=== PATIENT | female | born 1960 | race Caucasian/White ===

== ENCOUNTER 2017-04-30 17:04 | Inpatient (IN) | payer OTHER ==
[~2017-04-30] VITALS: Ht 154.9 cm; Wt 93.5 kg
[~2017-04-30 17:04] MED LIST: ASPI-1152 PO; BLOO-129 IN; CYCL10TA9 PO; DICL75TA5 PO; FLUO20TA28 PO; FURO40TA5 PO; HYDR-548 PO; LEVO750T21 PO; LISI-607 PO; LORA1TAB PO; METF10002 PO; METR500T PO; MONT10TA22 PO; NITR0.4T SL; POTA8TAB3 PO; RANO500T3 PO; TRAM50TA2 PO; TRAZ-147 PO
--- NOTE | 2017-04-30 17:08 | NUR ---
PT BB LIFE CONSULTANT WITH C/O ON/OFF CHEST PAIN X 2 WKS, WORSE TODAY. PT DENIES N/V/ DIAPHORESIS. PT TOOK 3 NITRO PICC NURSE W/O RELIEF. PT STATES CP 8/10, NONE RADIATING. RESP 26PM. PT PLACED ON NC 2L/M PER MD. PT IS AAOX4. RESP EVEN AND MILDLY LABORED. MILD S/S OF DISTRESS NOTED. PT GOWNED AND PLACED ON METAL SASH SETTER AND POX. PT COMFORT AND SAFETY MEASURES IN PLACE. MD BEDSIDE FOR EVAL.
--- NOTE | 2017-04-30 17:18 | NUR ---
CALLED [employer] SALES ENGAGEMENT EXECUTIVE FOR A TELE BED.
--- NOTE | 2017-04-30 17:18 | NUR ---
PHLEBOTOMY BEDSIDE FOR BLOOD SPECIMEN COLLECTION
--- NOTE | 2017-04-30 17:25 | NUR ---
CIRCUIT RIDER BEDSIDE FOR EKG
[2017-04-30 17:27] LABS: BASOPHILS # (AUTO) 0.1 /CMM (0.0-0.2); BASOPHILS % (AUTO) 0.5 % (0.0-2.0); EOSINOPHILS # (AUTO) 0.1 /CMM (0.0-0.7); EOSINOPHILS % (AUTO) 0.7 % (0.0-6.0); HEMATOCRIT 45 % (33-45); HEMOGLOBIN 15.4 g/dL (11.5-14.8); LYMPHOCYTES # (AUTO) 2.6 /CMM (0.8-4.8); LYMPHOCYTES % (AUTO) 24.7 % (20.0-44.0); MEAN CORPUSCULAR HEMOGLOBIN 30 PG (26.0-33.0); MEAN CORPUSCULAR HGB CONC 34 g/dl (31.0-36.0); MEAN CORPUSCULAR VOLUME 86 fL (82-100); MONOCYTES # (AUTO) 0.4 /CMM (0.1-1.30); NEUTROPHILS # (AUTO) 7.5 /CMM (1.8-8.9); NEUTROPHILS % (AUTO) 70.1 % (43.0-81.0); PLATELET COUNT (AUTO) 324 /CMM (150-450); RDW COEFFICIENT OF VARIATION 13.6 (11.5-15.0); RED BLOOD CELL COUNT(AUTO) 5.23 MIL/uL (4.0-5.2); WHITE BLOOD COUNT (AUTO) 10.7 K/uL (4.3-11.0)
[2017-04-30] MEDS ORDERED: MORPHINE SULFATE INJ 4 MG/ML DISP.SYRIN ONE (17:27)
[2017-04-30] MEDS ORDERED: ASPIRIN 325 MG TABLET ONE (17:27)
[2017-04-30] MEDS ORDERED: NITROGLYCERIN PACKET 1 GM PACKET TD ONE (17:30)
[2017-04-30] MEDS ORDERED: ASPIRIN 325 MG TABLET PO ONE (17:30)
[2017-04-30] MEDS ORDERED: MORPHINE SULFATE INJ 2 MG/ML DISP.SYRIN IV ONE (17:30)
[2017-04-30] MEDS ORDERED: NITROGLYCERIN PACKET 1 GM PACKET ONE (17:40)
[2017-04-30 17:41] LABS: INR 0.94 (0.85-1.15)
[2017-04-30] MEDS ORDERED: GABA600T2 PO (17:45)
[2017-04-30] MEDS ORDERED: AMLO5TAB2 PO (17:45)
[2017-04-30] MEDS ORDERED: HYDR-548 PO (17:45)
[2017-04-30] MEDS ORDERED: ATOR40TA PO (17:45)
[2017-04-30] MEDS ORDERED: ALPR0.5T8 PO (17:45)
[2017-04-30] MEDS ORDERED: INSU100V7 SQ (17:45)
[2017-04-30 17:48] LABS: TROPONIN I < 0.017 ng/mL (0.00-0.056)
[2017-04-30] MEDS ORDERED: INSU100V27 SQ (17:48)
[2017-04-30 17:55] LABS: B-TYPE NATRIURETIC PEPTIDE 53 PG/ML (0-125); CALCIUM, SERUM 9.2 mg/dL (8.5-10.1); CARBON DIOXIDE 22 mmol/L (21-32); CHLORIDE 99 mmol/L (98-107); CREATININE 0.8 mg/dL (0.6-1.3); POTASSIUM 4.2 mmol/L (3.5-5.1); SODIUM SERUM 132 mmol/L (136-145); UREA NITROGEN, BLOOD 12 mg/dL (7-18)
[2017-04-30 17:56] LABS: GLUCOSE 480 mg/dL (74-106)
--- NOTE | 2017-04-30 18:04 | NUR ---
TELE ROOM 323-2
[2017-04-30] MEDS ORDERED: LORAZEPAM INJ 2 MG/ML VIAL IV ONE (18:30)
[2017-04-30] MEDS ORDERED: INSULIN REGULAR, HUMAN 100 UNIT/ML 10 ML VIAL SQ ONE (18:30)
[2017-04-30] MEDS ORDERED: IV NS 0.9% 500 ML IV ONE (18:30)
[2017-04-30] MEDS ORDERED: INSULIN REGULAR, HUMAN 100 UNIT/ML 10 ML VIAL ONE (18:41)
[2017-04-30] MEDS ORDERED: LORAZEPAM INJ 2 MG/ML VIAL ONE (18:43)
--- NOTE | 2017-04-30 19:12 | NUR ---
Patient is resting comfortably in bed with eyes closed. Easily aroused. VSS
--- NOTE | 2017-04-30 19:28 | NUR ---
PAGED EPIC FOR PANEL
--- NOTE | 2017-04-30 19:37 | NUR ---
GAVE REPORT TO EYEGLASS FRAME TRUERABDULLAHI CRUZ FOR FRITZ.
[2017-04-30 20:00] VITALS: BP 134/82
--- NOTE | 2017-04-30 20:00 | NUR ---
RN OPEN NOTES RECEIVED PATIENT FROM ER VIA SUKHJINDER.A/OX4. NO SIGNS OF DISTRESS OR DISCOMFORT. BREATHING EVEN AND UNLABORED. ON 2LPM O2 VIA NC. IV ACCESS IN L WRIST, PATENT AND INTACT, NO SIGNS OF REDNESS OR INFILTRATION. ORIENTED PATIENT TO UNIT AND ROOM. BED IN LOW LOCKED POSITION WITH SIDE RAILS X2. WILL CONTINUE TO MONITOR.
[2017-04-30] MEDS ORDERED: Z GUARD REMEDY 2 OZ OINT TP PRN (20:30)
[2017-04-30] MEDS ORDERED: MAGNESIUM HYDROXIDE 30 ML UDC PO PRN (20:30)
[2017-04-30] MEDS ORDERED: ACETAMINOPHEN 325 MG TABLET PO PRN (20:30)
[2017-04-30] MEDS ORDERED: ONDANSETRON HCL/PF 4 MG/2 ML VIAL IVP PRN (20:30)
[2017-04-30] MEDS ORDERED: DEXTROSE 50%-WATER 50 ML DISP.SYRIN IV PRN (20:30)
[2017-04-30] MEDS ORDERED: MAG HYDROX/AL HYDROX/SIMETH 30 ML UDC PO PRN (20:30)
[2017-04-30] MEDS: GABAPENTIN 300 MG CAPSULE PO SCH (21:36)
[2017-04-30] MEDS: ATORVASTATIN 40 MG TABLET PO SCH (21:37)
[2017-04-30] MEDS: BLOOD SUGAR DIAGNOSTIC 1 EACH STRIP VI SCH (21:37)
[2017-04-30] MEDS: INSULIN GLARGINE, 100 UNIT/ML CARTRIDGE SQ SCH (21:38)
[2017-04-30] MEDS: *INSULIN REGULAR(HUMULIN R)HUM 100 UNIT/ML VIAL SQ PRN (21:39)
[2017-04-30] MEDS: ENOXAPARIN SODIUM 40 MG/0.4 ML DISP.SYRIN SQ SCH (21:41)
[2017-04-30] MEDS: ZOLPIDEM TARTRATE 5 MG TABLET PO PRN (22:53)
[2017-04-30] MEDS: MORPHINE SULFATE INJ 4 MG/ML DISP.SYRIN IV PRN (23:01)
--- NOTE | 2017-04-30 23:24 | NUR ---
RN NOTES DR. DALEY AT PATIENTS BEDSIDE.
[2017-04-30] MEDS ORDERED: diphenhydrAMINE HCL 50 MG CAPSULE PO PRN (23:30)
[2017-05-01] VITALS: BP 114/69
[2017-05-01] MEDS: ALPRAZOLAM 0.5 MG TABLET PO PRN (01:56)
[2017-05-01] MEDS: MORPHINE SULFATE INJ 4 MG/ML DISP.SYRIN IV PRN ×2 (03:08→11:47)
[2017-05-01 04:00] VITALS: BP 130/64
[2017-05-01] MEDS: HYDROCODONE/APAP 5/325MG 1 EACH TABLET PO PRN (06:16)
[2017-05-01] MEDS: INSULIN REGULAR, HUMAN 100 UNIT/ML 3 ML VIAL SQ PRN ×3 (06:17→17:25)
[2017-05-01] MEDS: BLOOD SUGAR DIAGNOSTIC 1 EACH STRIP VI SCH ×4 (06:19→22:13)
--- NOTE | 2017-05-01 07:41 | NUR ---
RN CLOSING NOTES PATIENT AWAKE IN BED. A/OX4. NO SIGNS OF DISTRESS OR DISCOMFORT. BREATHING EVEN AND UNLABORED. ON 2LPM O2 VIA NC. IV ACCESS IN L WRIST, PATENT AND INTACT, NO SIGNS OF REDNESS OR INFILTRATION. ALL NEEDS MET. NO SIGNIFICANT CHANGES THROUGH THE NIGHT. BED IN LOW LOCKED POSITION WITH SIDE RAILS X2. ENDORSED TO AM SHIFT FOR FRITZ.
[2017-05-01 07:42] LABS: CALCIUM, SERUM 8.3 mg/dL (8.5-10.1); CREATININE 0.6 mg/dL (0.6-1.3); MAGNESIUM 1.7 mg/dL (1.8-2.4); PHOSPHORUS 4.8 mg/dL (2.5-4.9); POTASSIUM 3.3 mmol/L (3.5-5.1)
--- NOTE | 2017-05-01 07:45 | NUR ---
RN MS NOTES PT IN BED, AWAKE, ALERT AND ORIENTED, NO COMPLAINT OF PAIN, OR ANY DISCOMFORT, RESPIRATIONS NORMAL AND NOT LABORED, CALL LIGHT WITHIN REACH, NEEDS ATTENDED.
[2017-05-01 07:53] VITALS: BP 155/91
[2017-05-01 07:59] LABS: BASOPHILS % (AUTO) 0.3 % (0.0-2.0); EOSINOPHILS # (AUTO) 0.1 /CMM (0.0-0.7); EOSINOPHILS % (AUTO) 1.1 % (0.0-6.0); HEMATOCRIT 41 % (33-45); HEMOGLOBIN 13.9 g/dL (11.5-14.8); LYMPHOCYTES # (AUTO) 2.8 /CMM (0.8-4.8); LYMPHOCYTES % (AUTO) 29.9 % (20.0-44.0); MEAN CORPUSCULAR HEMOGLOBIN 30 PG (26.0-33.0); MEAN CORPUSCULAR HGB CONC 34 g/dl (31.0-36.0); MEAN CORPUSCULAR VOLUME 87 fL (82-100); MONOCYTES # (AUTO) 0.7 /CMM (0.1-1.30); MONOCYTES % (AUTO) 7.6 % (2.0-12.0); NEUTROPHILS # (AUTO) 5.7 /CMM (1.8-8.9); NEUTROPHILS % (AUTO) 61.1 % (43.0-81.0); PLATELET COUNT (AUTO) 293 /CMM (150-450); RDW COEFFICIENT OF VARIATION 14.8 (11.5-15.0); RED BLOOD CELL COUNT(AUTO) 4.67 MIL/uL (4.0-5.2); WHITE BLOOD COUNT (AUTO) 9.3 K/uL (4.3-11.0)
[2017-05-01] MEDS ORDERED: LEVALBUTEROL HCL NEB 1.25 MG/0.5 ML VIAL.NEB IH SCH (08:00)
[2017-05-01] MEDS: PANTOPRAZOLE 40 MG TABLET.DR PO SCH (08:51)
[2017-05-01] MEDS: MONTELUKAST SODIUM (10MG) 10 MG TABLET PO SCH (08:51)
[2017-05-01] MEDS: methylPREDNISolone SOD SUCC 40 MG/ML VIAL IV SCH ×3 (08:51→17:17)
[2017-05-01] MEDS: GABAPENTIN 300 MG CAPSULE PO SCH ×3 (08:51→17:16)
[2017-05-01] MEDS: FLUOXETINE HCL 20 MG CAPSULE PO SCH (08:51)
[2017-05-01] MEDS: DILTIAZEM HCL CD 240 MG PO SCH (08:51)
[2017-05-01] MEDS: CYCLOBENZAPRINE 10 MG TABLET PO SCH ×3 (08:51→17:17)
[2017-05-01] MEDS: ASPIRIN EC 81 MG TABLET.DR PO SCH (08:52)
[2017-05-01] MEDS: FUROSEMIDE 40 MG TABLET PO SCH (08:52)
[2017-05-01] MEDS: INSULIN GLARGINE, 100 UNIT/ML CARTRIDGE SQ SCH ×2 (08:58→22:04)
[2017-05-01] MEDS ORDERED: LISINOPRIL (5MG) 5 MG TABLET PO SCH (09:00)
[2017-05-01 09:43] LABS: THYROID STIMULATING HORMONE 1.491 uIU/mL (0.358-3.74)
[2017-05-01] MEDS: Magnesium 1GM/D5W 100ML PREMIX 100 ML IV SCH ×2 (11:30→13:27)
[2017-05-01] MEDS ORDERED: POTASSIUM CHLORIDE 20 MEQ TAB.PRT.SR PO SCH (12:00)
[2017-05-01] MEDS ORDERED: INSULIN REGULAR, HUMAN 100 UNIT/ML 3 ML VIAL SQ ONE (13:30)
[2017-05-01] MEDS: ALBUTEROL FS 2.5 MG/3 ML VIAL.NEB NEB SCH ×2 (14:19→19:41)
[2017-05-01 16:46] VITALS: BP 149/87
[2017-05-01] MEDS ORDERED: AMLODIPINE BESYLATE 5 MG TABLET PO SCH (18:00)
[2017-05-01] MEDS ORDERED: INSULIN REGULAR, HUMAN 100 UNIT/ML 10 ML VIAL IV ONE (18:00)
--- NOTE | 2017-05-01 18:30 | NUR ---
RN MS NOTES PT IN BED, SLEEPS INTERMITTENTLY, EASILY AROUSABLE, ALERT AND ORIENTED, ASSISTED WITH TOILETING AT BEDSIDE COMMODE, PT SEEN BY DR. ZURITA TODAY, NOTED WITH ELEVATED BLOOD SUGAR, DR. DALEY INFORMED, ORDERS MADE, NOTED AND ADMINISTERED ORDERED, ENDORSED TO PM NURSE TO MONITOR, TOLERATING CURRENT DIET WELL, ALL NEEDS ATTENDED.
--- NOTE | 2017-05-01 19:16 | NUR ---
Spoke with patient, stated she lives on the 1st floor apartment with her roommate/caregiver Isaak Rodriguez [phone]. She is wheelchair bound and on home o2 due to hx of COPD. She requires mod-max assist with adl's. She owns a wheelchair, shower chair and Home O2. Stated she is on homehealth but unable to recall the name of the company. She receives IHSS and Isaak is her caregiver provider. Patient plan ot return home upon discharge. Addendum: 05/01/17 at 1917 by LETICIA MANZANARES RN Amended: Links added.
--- NOTE | 2017-05-01 19:35 | NUR ---
RN OPEN NOTES RECEIVED PATIENT RESTING IN BED, EASILY AROUSABLE. A/OX4. NO SIGNS OF DISTRESS OR DISCOMFORT. BREATHING EVEN AND UNLABORED. ON 2LPM O2 VIA NC. IV ACCESS IN L WRIST, PATENT AND INTACT, NO SIGNS OF REDNESS OR INFILTRATION. BED IN LOW LOCKED POSITION WITH SIDE RAILS X2. CALL LIGHT WITHIN REACH. WILL CONTINUE TO MONITOR.
[2017-05-01 20:00] VITALS: BP 146/99
[2017-05-01] MEDS: *INSULIN REGULAR(HUMULIN R)HUM 100 UNIT/ML VIAL SQ PRN (22:05)
[2017-05-01] MEDS: ENOXAPARIN SODIUM 40 MG/0.4 ML DISP.SYRIN SQ SCH (22:05)
[2017-05-01] MEDS: ATORVASTATIN 40 MG TABLET PO SCH (22:07)
[2017-05-01] MEDS: ZOLPIDEM TARTRATE 5 MG TABLET PO PRN (22:14)
[2017-05-02] MEDS: ALBUTEROL FS 2.5 MG/3 ML VIAL.NEB NEB SCH ×4 (01:01→20:15)
[2017-05-02] MEDS: MORPHINE SULFATE INJ 4 MG/ML DISP.SYRIN IV PRN ×4 (02:09→22:49)
[2017-05-02] MEDS: INSULIN REGULAR, HUMAN 100 UNIT/ML 3 ML VIAL SQ PRN ×3 (06:46→17:42)
[2017-05-02] MEDS: BLOOD SUGAR DIAGNOSTIC 1 EACH STRIP VI SCH ×2 (06:47→12:39)
--- NOTE | 2017-05-02 06:51 | NUR ---
RN CLOSING NOTES PATIENT RESTING IN BED, EASILY AROUSABLE. A/OX4. NO SIGNS OF DISTRESS OR DISCOMFORT. BREATHING EVEN AND UNLABORED. ON 2LPM O2 VIA NC. IV ACCESS IN L WRIST, PATENT AND INTACT, NO SIGNS OF REDNESS OR INFILTRATION. ALL NEEDS MET. NO SIGNIFICANT CHANGES THROUGH THE NIGHT. BED IN LOW LOCKED POSITION WITH SIDE RAILS X2. CALL LIGHT WITHIN REACH. NOTIFIED ROSEANNE COMBINATION MAN OF PATIENT ELEV BS 488, NO NEW ORDERS GIVEN. WILL ENDORSE TO AM SHIFT FOR FRITZ.
[2017-05-02 07:00] LABS: BASOPHILS % (AUTO) 0.2 % (0.0-2.0); EOSINOPHILS % (AUTO) 0.1 % (0.0-6.0); HEMATOCRIT 40 % (33-45); HEMOGLOBIN 13.6 g/dL (11.5-14.8); LYMPHOCYTES # (AUTO) 1.9 /CMM (0.8-4.8); LYMPHOCYTES % (AUTO) 14.6 % (20.0-44.0); MEAN CORPUSCULAR HEMOGLOBIN 30 PG (26.0-33.0); MEAN CORPUSCULAR HGB CONC 34 g/dl (31.0-36.0); MEAN CORPUSCULAR VOLUME 88 fL (82-100); MONOCYTES # (AUTO) 0.9 /CMM (0.1-1.30); MONOCYTES % (AUTO) 6.6 % (2.0-12.0); NEUTROPHILS # (AUTO) 10.2 /CMM (1.8-8.9); NEUTROPHILS % (AUTO) 78.5 % (43.0-81.0); PLATELET COUNT (AUTO) 275 /CMM (150-450); RDW COEFFICIENT OF VARIATION 14.7 (11.5-15.0); RED BLOOD CELL COUNT(AUTO) 4.53 MIL/uL (4.0-5.2); WHITE BLOOD COUNT (AUTO) 13.1 K/uL (4.3-11.0)
[2017-05-02 07:04] LABS: TROPONIN I < 0.017 ng/mL (0.00-0.056)
[2017-05-02 07:06] LABS: ALANINE AMINOTRANSFERASE 57 U/L (12-78); ALKALINE PHOSPHATASE 136 U/L (46-116); ASPARTATE AMINOTRANSFERASE 19 U/L (15-37); BILIRUBIN,TOTAL 0.3 mg/dL (0.2-1.0); CALCIUM, SERUM 8.9 mg/dL (8.5-10.1); CARBON DIOXIDE 25 mmol/L (21-32); CHLORIDE 99 mmol/L (98-107); CREATININE 0.9 mg/dL (0.6-1.3); MAGNESIUM 1.9 mg/dL (1.8-2.4); PHOSPHORUS 4.7 mg/dL (2.5-4.9); POTASSIUM 3.8 mmol/L (3.5-5.1); SODIUM SERUM 134 mmol/L (136-145); TOTAL PROTEIN, SERUM 6.9 g/dL (6.4-8.2); UREA NITROGEN, BLOOD 18 mg/dL (7-18)
[2017-05-02 07:46] LABS: GLUCOSE 456 mg/dL (74-106)
[2017-05-02 08:00] VITALS: BP 143/88
--- NOTE | 2017-05-02 08:00 | NUR ---
MS RN AM NOTES PATIENT RESTING IN BED, EASILY AROUSABLE. A/OX4. NO SIGNS OF DISTRESS OR DISCOMFORT. BREATHING EVEN AND UNLABORED. ON 2LPM O2 VIA NC. IV ACCESS IN RT HAND, PATENT AND INTACT, NO SIGNS OF REDNESS OR INFILTRATION.BED IN LOW LOCKED POSITION WITH SIDE RAILS X2. CALL LIGHT WITHIN REACH.
[2017-05-02] MEDS: GABAPENTIN 300 MG CAPSULE PO SCH ×3 (08:27→17:38)
[2017-05-02] MEDS: CYCLOBENZAPRINE 10 MG TABLET PO SCH ×3 (08:27→17:39)
[2017-05-02] MEDS: MONTELUKAST SODIUM (10MG) 10 MG TABLET PO SCH (08:27)
[2017-05-02] MEDS: FLUOXETINE HCL 20 MG CAPSULE PO SCH (08:28)
[2017-05-02] MEDS: FUROSEMIDE 40 MG TABLET PO SCH (08:29)
[2017-05-02] MEDS: ASPIRIN EC 81 MG TABLET.DR PO SCH (08:29)
[2017-05-02] MEDS: PANTOPRAZOLE 40 MG TABLET.DR PO SCH (08:29)
[2017-05-02] MEDS ORDERED: INSULIN REGULAR, HUMAN 100 UNIT/ML 3 ML VIAL IV ONE (08:30)
[2017-05-02] MEDS: DILTIAZEM HCL CD 240 MG PO SCH (08:30)
[2017-05-02] MEDS: ALPRAZOLAM 0.5 MG TABLET PO PRN (08:31)
[2017-05-02] MEDS: LISINOPRIL (20MG) 20 MG TABLET PO SCH ×2 (08:36→17:00)
[2017-05-02] MEDS: predniSONE 20 MG TABLET PO SCH (08:36)
[2017-05-02] MEDS: INSULIN GLARGINE, 100 UNIT/ML CARTRIDGE SQ SCH ×2 (08:38→21:59)
[2017-05-02] MEDS ORDERED: LISINOPRIL (5MG) 5 MG TABLET PO SCH (09:00)
--- NOTE | 2017-05-02 12:00 | NUR ---
NOTIFIED DR DALEY OF PT'S BLOOD SUGAR OF 448.ADMINISTERED 15 UNITS PER SLIDING SCALE.
--- NOTE | 2017-05-02 15:50 | NUR ---
SEEN BY O.TNathan AND STATED THAT PT REFUSED TO DO EXERCISES SAYING SHE IS TIRED.SAFE TRANSFER TEACHING DONE BY Viji
[2017-05-02 16:00] VITALS: BP 105/64
--- NOTE | 2017-05-02 16:48 | NUR ---
BLOOD SUGAR IS 516-NOTIFIED DR DALEY.PT TEACHING ON DIABETIC DIET DONE.REINFORCED TEACHING AND INSTRUCTIONS NOT TO EAT SUGARY FOODS AND CARBS.PT KEEPS VERBALIZING UNDERSTANDING OF INSTRUCTIONS GIVEN.
[2017-05-02] MEDS ORDERED: BISACODYL (5 MG) 5 MG TABLET.DR PO PRN (17:00)
[2017-05-02] MEDS ORDERED: DEXTROSE 50%-WATER 50 ML DISP.SYRIN IV PRN (17:30)
[2017-05-02] MEDS ORDERED: *INSULIN REGULAR(HUMULIN R)HUM 100 UNIT/ML VIAL SQ PRN (17:30)
[2017-05-02] MEDS: BLOOD SUGAR DIAGNOSTIC 1 EACH STRIP IN SCH ×2 (17:40→21:50)
--- NOTE | 2017-05-02 18:35 | NUR ---
PT RESTING IN BED DENYING ANY PAIN OR DISTRESS.PAIN MGT EFFECTIVE.INSTRUCTED THE SIDE EFFECTS OF USING MORPHINE IV OFTEN FOR PAIN.PT TEACHING DONE ON PAIN MEDS AND DIABETIC INTAKE AND RESTRICTIONS.PT VERBALIZED UNDERSTANDING OF INSTRUCTIONS GIVEN.CALL LIGHT PLACED WITHIN REACH.
--- NOTE | 2017-05-02 19:05 | NUR ---
MS RN NOTES RECEIVED PT RESTING COMFORTABLY IN BED AT THIS TIME, AROUSES EASILY, A/O X 4. NO DISTRESS , NO SOB NOTED AT THIS TIME, ON O2 @ 2LPM VIA NC, WITH BREATHING TX ORDER. NO C/O PAIN OR DISCOMFORT AT THIS TIME. IV SITE ON LEFT WRIST INTACT AND PATENT, NO S/S OF INFILTRATION NOTED. NO S/S OF HYPO/ HYPERGLYCEMIA NOTED. PLAN OF CARE REGARDING STRESS TEST IN AM AND NPO STARTING 12 MIDNIGHT DISCUSSED WITH THE PT, PT VERBALIZED UNDERSTANDING. CALL LIGHT WITHIN REACH. SAFETY PRECAUTIONS OBSERVED. WILL CONTINUE TO MONITOR.
[2017-05-02 20:00] VITALS: BP 131/76
[2017-05-02] MEDS: ATORVASTATIN 40 MG TABLET PO SCH (21:49)
--- NOTE | 2017-05-02 21:50 | NUR ---
BS PT'S BS : 523 AT THIS TIME, 20 UNITS OF LANTUS INSULIN GIVEN , NO S/S OF HYPERGLYCEMIA NOTED, PT REMAINS A/O X 4, VERBALLY RESPONSIVE, STILL ASKING FOR FOOD TO EAT EXPLAINED TO PT REGARDING RISK, PT VERBALIZED UNDERSTANDING. CHARGE NURSE MIGUELINA LUNA, RANDOM GLUCOSE TEST ORDERED STAT, WILL MONITOR THE PT CLOSELY. PLACED A CALL TO LAB REGARDING STAT ORDER, SPOKE WITH SARA . AWAITING FOR RANDOM GLUCOSE RESULT. CHARGE NURSE MIGUELINA LUNA.
[2017-05-02] MEDS: ENOXAPARIN SODIUM 40 MG/0.4 ML DISP.SYRIN SQ SCH (21:55)
--- NOTE | 2017-05-02 22:40 | NUR ---
RANDOM GLUCOSE RESULT STAT RESULT : 499, 10 UNITS OF REGULAR INSULIN PER SLIDING SCALE, PT REMAINS A/O X 4 , VERBALLY RESPONSIVE , NO S/S OF HYPERGLYCEMIA NOTED. PT ON NPO AFTER MIDNIGHT FOR STRESS TEST, FOR PLACED A CALL TO ALEJANDRO CRONIN WITH NO NEW ORDER AT THIS TIME, CHARGE NURSE AWARE. WILL MONITOR PT CLOSELY. .
--- NOTE | 2017-05-02 22:55 | NUR ---
PT EATING SNACKS AT THIS TIME, RISK AND BENEFITS EXPLAINED. WILL CONT TO MONITOR PT CLOSELY.
[2017-05-02] MEDS: ZOLPIDEM TARTRATE 5 MG TABLET PO PRN (23:33)
[2017-05-03] MEDS: ALBUTEROL FS 2.5 MG/3 ML VIAL.NEB NEB SCH ×4 (00:34→20:16)
--- NOTE | 2017-05-03 01:13 | NUR ---
RECHECKED PT'S BLOOD SUGAR : 403 AT THIS TIME, LANTUS INSULIN 20 UNITS GIVEN AT 2150, REGULAR INSULIN 10 UNITS GIVEN AT 2240, PT ON NPO AFTER MIDNIGHT FOR STRESS TEST TODAY, PT WITH NO S/S OF HYPERGLYCEMIA NOTED, REMAINS A/O X 4. CHARGE NURSE INFORMED, MADE AWARE. WILL CONTINUE TO MONITOR PT CLOSELY.
[2017-05-03] MEDS: BLOOD SUGAR DIAGNOSTIC 1 EACH STRIP IN SCH ×3 (05:51→17:45)
[2017-05-03] MEDS: MORPHINE SULFATE INJ 4 MG/ML DISP.SYRIN IV PRN ×2 (06:13→11:37)
--- NOTE | 2017-05-03 06:42 | NUR ---
MS RN NOTES PT IN BED AT THIS TIME, AWAKE, A/O X 4. NO DISTRESS , NO SOB NOTED AT THIS TIME, ON O2 @ 2LPM VIA NC., LULA WELL. NO C/O PAIN OR DISCOMFORT AT THIS TIME. IV SITE ON LEFT WRIST INTACT AND PATENT, NO S/S OF INFILTRATION NOTED. NO S/S OF HYPO/ HYPERGLYCEMIA NOTED. PT WAS STARTED ON NPO AT MIDNIGHT. CALL LIGHT WITHIN REACH. SAFETY PRECAUTIONS OBSERVED. WILL ENDORSE TO NEXT SHIFT FOR FRITZ. .
--- NOTE | 2017-05-03 07:25 | NUR ---
RN OPENING NOTES RECEIVED PT. IN BED A&OX4. NPO EXCEPT MEDS FOR STRESS TEST. BREATHING UNLABORED, AND EVENLY ON OXYGEN AT 2L/MIN VIA NASAL CANNULA. NO S/S OF ACUTE DISTRESS. IV ACCESS IS INTACT AND PATENT. BED IS IN LOWEST, AND LOCKED POSITION. 2 SIDE RAILS UP, AND INSTRUCTED PT. TO USE CALL LIGHT FOR ASSISTANCE. ALL NEEDS MET. WILL CONTINUE TO ASSESS AND MONITOR.
[2017-05-03 08:00] VITALS: BP 119/67
[2017-05-03] MEDS: INSULIN GLARGINE, 100 UNIT/ML CARTRIDGE SQ SCH ×2 (09:00→09:30)
[2017-05-03] MEDS: ASPIRIN EC 81 MG TABLET.DR PO SCH (09:06)
[2017-05-03] MEDS: MONTELUKAST SODIUM (10MG) 10 MG TABLET PO SCH (09:06)
[2017-05-03] MEDS: predniSONE 20 MG TABLET PO SCH (09:06)
[2017-05-03] MEDS: PANTOPRAZOLE 40 MG TABLET.DR PO SCH (09:06)
[2017-05-03] MEDS: FUROSEMIDE 40 MG TABLET PO SCH (09:07)
[2017-05-03] MEDS: CYCLOBENZAPRINE 10 MG TABLET PO SCH ×3 (09:07→17:38)
[2017-05-03] MEDS: DILTIAZEM HCL CD 240 MG PO SCH (09:07)
[2017-05-03] MEDS: GABAPENTIN 300 MG CAPSULE PO SCH ×3 (09:07→17:38)
[2017-05-03] MEDS: LISINOPRIL (20MG) 20 MG TABLET PO SCH ×2 (09:08→17:38)
[2017-05-03] MEDS: FLUOXETINE HCL 20 MG CAPSULE PO SCH (09:09)
[2017-05-03] MEDS ORDERED: REGADENOSON 0.4 MG/5 ML DISP.SYRIN IVP ONE (09:30)
[2017-05-03] MEDS: INSULIN REGULAR, HUMAN 100 UNIT/ML 3 ML VIAL SQ PRN ×2 (11:20→17:46)
[2017-05-03] MEDS: HYDROCODONE/APAP 5/325MG 1 EACH TABLET PO PRN (14:43)
[2017-05-03] MEDS ORDERED: INSU100V7 SQ (15:12)
[2017-05-03 16:00] VITALS: BP 107/61
--- NOTE | 2017-05-03 17:00 | NUR ---
RN NOTES DISCHARGE INSTRUCTIONS WERE GIVEN TO PT. AND VERBALIZED UNDERSTANDING. BELONGING LIST WAS CHECKED, AND SIGNED. DISCHARGE PAPERS WERE SIGNED. FLU AND PNA VACCINES ADMINISTERED.
[2017-05-03] MEDS ORDERED: PNEUMOCOCCAL 23-VAL P-SAC VAC 0.5 ML VIAL SQ ONE (17:30)
[2017-05-03] MEDS ORDERED: FLU VACC QS 2017-18(36MOS+)/PF 0.5 ML DISP.SYRIN IM ONE (17:30)
--- NOTE | 2017-05-03 17:30 | NUR ---
RN NOTES PT.'S BLOOD SUGAR WAS CHECKED IT WAS 509 MG/DL 20 UNITS IF REGULAR INSULIN SQ WAS GIVEN, AND MD WAS NOTIFIED. MD GAVE NEW ORDERS TO GIVE PT. AN EXTRA DOSE OF REGULAR INSULIN 14 UNITS IVP ONCE, AND TO RECHECK BLOOD SUGARS IN 2 HOURS.
[2017-05-03] MEDS ORDERED: INSULIN REGULAR, HUMAN 100 UNIT/ML 3 ML VIAL IV ONE (18:30)
--- NOTE | 2017-05-03 19:45 | NUR ---
RN CLOSING NOTES PT. IS SITTING UP IN WHEELCHAIR A&OX4. BREATHING UNLABORED, AND EVENLY ON ROOM AIR. NO S/S OF ACUTE DISTRESS. IV ACCESS IS INTACT AND PATENT. BED IS IN LOWEST, AND LOCKED POSITION. 2 SIDE RAILS UP, AND INSTRUCTED PT. TO USE CALL LIGHT FOR ASSISTANCE. ALL NEEDS MET. WILL ENDORSE REPORT TO NURSE.
--- NOTE | 2017-05-03 19:50 | NUR ---
MS/RN OPENING NOTES PT RECEIVED SITTING IN WHEELCHAIR. FAMILY AT BEDSIDE. A/OX4. CURRENTLY ON ROOM AIR, BREATHING EVEN AND UNLABORED. DENIES SOB, NO WHEEZING NOTED AT THIS TIME. NOTES GENERALIZED PAIN AND REQUESTING MORPHINE. PER DR. DALEY, NO MORE MORPHINE. PT DOES NOT WANT TO TAKE PRN NORCO. IV TO LEFT WRIST PATENT AND INTACT. PT RECEIVED 14 UNITS INSULIN IVP, TO RECHECK BLOOD SUGAR AT 2043, PRIOR TO DISCHARGE. PT AWARE. BED IN LOW/LOCKED POSITION, CALL LIGHT IN REACH AND SIDE RAILS UPX2. WILL CONTINUE TO MONITOR
[2017-05-03 20:00] VITALS: BP 135/77
--- NOTE | 2017-05-03 21:20 | NUR ---
MS/RN NOTES PT'S BLOOD SUGARS RECHECKED AT [address] DALEY'S ORDERS. BOTH HANDS SHOW BLOOD SUGAR OF 499. NOTIFIED DR. DALEY AND ORDERED ADDITIONAL 15 UNITS IV AND SCHEDULED LANTUS AND TO KEEP PT OVERNIGHT. PT REFUSING TO STAY. AMA PAPERWORK COMPLETED AND FILED IN CHART. DR. DALEY NOTIFIED. PT REQUESTING NORCO PRESCRIPTION. CLARIFIED WITH NURSING SUP, NEEDS CONFIRMATION FROM BEFORE PROVIDING PRESCRIPTION. VERIFIED WITH ROSEANNE WILLIAM NP WHILE AWAITING RESPONSE FROM DR. DALEY. BOTH OKAY TO GIVE PT PRESCRIPTION. IV AND ID REMOVED. PRESCRIPTION PAPER AND BELONGINGS SENT WITH PT. PT LEFT UNIT ACCOMPANIED BY FAMILY VIA WHEELCHAIR
== END 2017-05-03 21:20 | disposition left against medical advice (07) | DRG 198 ==
LOC: ER 17:05 → TELE 19:03 → MED 05-01 10:14
PROVIDERS: ADMIT Internal Medicine; ATTEND Internal Medicine
DX: R07.89 Other chest pain (principal); I25.10 Atherosclerotic heart disease of native coronary artery without angina pectoris; E43 Unspecified severe protein-calorie malnutrition; I11.0 Hypertensive heart disease with heart failure; E11.40 Type 2 diabetes mellitus with diabetic neuropathy, unspecified; J96.11 Chronic respiratory failure with hypoxia; I50.32 Chronic diastolic (congestive) heart failure; E66.01 Morbid (severe) obesity due to excess calories; E78.5 Hyperlipidemia, unspecified; F32.9 Major depressive disorder, single episode, unspecified; J44.9 Chronic obstructive pulmonary disease, unspecified; Z99.81 Dependence on supplemental oxygen; F41.9 Anxiety disorder, unspecified; Z68.39 Body mass index [BMI] 39.0-39.9, adult; Z79.84 Long term (current) use of oral hypoglycemic drugs; J40 Bronchitis, not specified as acute or chronic; E88.09 Other disorders of plasma-protein metabolism, not elsewhere classified; G89.29 Other chronic pain; E11.65 Type 2 diabetes mellitus with hyperglycemia
CPT/HCPCS: 36415; 71045-TC; 80048-TC; 80053-TC; 80061-TC; 82947-TC; 82962-TC; 83735-TC; 83880; 84100-TC; 84439-TC; 84443-TC; 84484-TC; 85025-TC; 85730-TC; 87081-TC; 90732; 93307-TC; 94799-TC; 97530-TC; A4606; A9502; J1650; J1815; J2060; J2270; J2785; J2920; J3475; J7040; J7050; Q2036; Z7610

== ENCOUNTER 2017-11-15 15:34 | Emergency (ER) | payer OTHER ==
[~2017-11-15] VITALS: Ht 154.9 cm; Wt 108.9 kg
[~2017-11-15 15:34] MED LIST changes: +ALPR0.5T8 PO; +AMLO5TAB7 PO; +ATOR40TA PO; -BLOO-129 IN; -DICL75TA5 PO; +GABA600T2 PO; +INSU100V27 SQ; +INSU100V7 SQ; -LEVO750T21 PO; -LORA1TAB PO; +METF-442 PO; -METF10002 PO; -METR500T PO; -NITR0.4T SL; -TRAM50TA2 PO; -TRAZ-147 PO; +TRAZ-214 PO
--- NOTE | 2017-11-15 15:35 | NUR ---
PATIENT TO ED DT PAIN DURING URINATION, +DYSURIA. PATIENT IS AFEBRILE. VSS
[2017-11-15] MEDS ORDERED: ONDANSETRON HCL/PF 4 MG/2 ML VIAL ONE (16:17)
[2017-11-15] MEDS ORDERED: MORPHINE SULFATE INJ 4 MG/ML DISP.SYRIN ONE (16:17)
[2017-11-15] MEDS ORDERED: LIDOCAINE 2% JEL UROJET 10 ML MM ONE ×2 (16:17→16:30)
[2017-11-15] MEDS ORDERED: MORPHINE SULFATE INJ 2 MG/ML DISP.SYRIN IV ONE (16:30)
[2017-11-15] MEDS ORDERED: IV NS 0.9% 1,000 ML BAG IV ONE (16:30)
[2017-11-15] MEDS ORDERED: ONDANSETRON HCL/PF 4 MG/2 ML VIAL IVP ONE (16:30)
[2017-11-15 16:39] LABS: BASOPHILS % (AUTO) 0.2 % (0.0-2.0); EOSINOPHILS % (AUTO) 1.4 % (0.0-6.0); HEMATOCRIT 43 % (33-45); HEMOGLOBIN 14.4 g/dL (11.5-14.8); LYMPHOCYTES % (AUTO) 23.4 % (20.0-44.0); MEAN CORPUSCULAR HGB CONC 34 g/dl (31.0-36.0); MEAN CORPUSCULAR VOLUME 88 fL (82-100); MONOCYTES # (AUTO) 0.6 /CMM (0.1-1.30); MONOCYTES % (AUTO) 6.7 % (2.0-12.0); NEUTROPHILS # (AUTO) 5.6 /CMM (1.8-8.9); NEUTROPHILS % (AUTO) 68.3 % (43.0-81.0); PLATELET COUNT (AUTO) 267 /CMM (150-450); RDW COEFFICIENT OF VARIATION 13.7 (11.5-15.0); RED BLOOD CELL COUNT(AUTO) 4.86 MIL/uL (4.0-5.2); WHITE BLOOD COUNT (AUTO) 8.3 K/uL (4.3-11.0)
[2017-11-15 16:46] LABS: APPEARANCE,URINE CLEAR (CLEAR); BILIRUBIN,URINE NEGATIVE (NEGATIVE); BLOOD, URINE TRACE-INTA Ery/uL (NEGATIVE); COLOR,URINE YELLOW (YELLOW); KETONES,URINE NEGATIVE (NEGATIVE); LEUKOCYTE ESTERASE ,URINE NEGATIVE (NEGATIVE); NITRITE, URINE NEGATIVE (NEGATIVE); PROTEIN,URINE NEGATIVE (NEGATIVE); UGLUCOSE 3+ mg/dL (NEGATIVE); UROBILINOGEN,URINE 0.2 EU/dL (0.2)
[2017-11-15 17:02] LABS: CALCIUM, SERUM 8.6 mg/dL (8.5-10.1); POTASSIUM 3.5 mmol/L (3.5-5.1)
[2017-11-15 17:19] LABS: ABG BASE EXCESS -2.9 mmol/L; ABG OXYGEN SATURATION 91.8 % (92.0-98.5); ABG PCO2 36.7 mmHg (35.0-45.0); ABG PH 7.386 (7.350-7.450); ABG PO2 60.5 mmHg (75.0-100.0); COHb 4.5 % (0.5-1.5); MetHb 0.4 % (0.0-1.5); O2Hb 87.3 % (94.0-97.0); VENT MODE, BG ROOM AIR
[2017-11-15 17:42] LABS: BACTERIA,URINE Moderate /HPF (None Seen); SQUAMOUS EPITHELIAL CELL,UR Few /HPF (None Seen)
[2017-11-15] MEDS ORDERED: INSULIN LISPRO/ASPART 100 UNIT/ML CARTRIDGE SQ STA (18:00)
[2017-11-15] MEDS ORDERED: INSULIN REGULAR, HUMAN 100 UNIT/ML 10 ML VIAL ONE (18:17)
--- NOTE | 2017-11-15 18:51 | NUR ---
Patient discharged to home in stable condition. Written and verbal after care instructions given. Patient verbalizes understanding of instruction.IV removed. Catheter intact and site benign. Pressure and 4x4 applied to site. No bleeding noted.
[2017-11-15 19:00] VITALS: BP 122/88
== END 2017-11-15 19:01 | disposition home or self-care (01) ==
LOC: ER 15:35
DX: E11.65 Type 2 diabetes mellitus with hyperglycemia (principal); B37.3 Candidiasis of vulva and vagina; I11.0 Hypertensive heart disease with heart failure; I50.9 Heart failure, unspecified; I25.2 Old myocardial infarction; J44.9 Chronic obstructive pulmonary disease, unspecified; F17.200 Nicotine dependence, unspecified, uncomplicated; E78.00 Pure hypercholesterolemia, unspecified; Z98.890 Other specified postprocedural states; Z95.818 Presence of other cardiac implants and grafts; Z87.19 Personal history of other diseases of the digestive system; Z79.4 Long term (current) use of insulin; Z79.899 Other long term (current) drug therapy; Z79.82 Long term (current) use of aspirin; Z79.84 Long term (current) use of oral hypoglycemic drugs
CPT/HCPCS: 36415; 36600; 51702; 80048; 81001; 82803; 85025; 87077; 87086; 87186; 96361; 96372; 96374; 96375; 99284; A4606; J1815; J2270; J2405; J3490; J7030; Z7610; 81000-TC

== ENCOUNTER 2018-02-27 20:25 | Inpatient (IN) | payer OTHER ==
[~2018-02-27] VITALS: Ht 154.9 cm; Wt 90.7 kg
[~2018-02-27 20:25] MED LIST changes: -AMLO5TAB7 PO; +AMLO5TAB9 PO; +GABA600T12 PO; -GABA600T2 PO; +HYDR-4354 PO; -HYDR-548 PO
--- NOTE | 2018-02-27 21:25 | NUR ---
BIBSELF FROM C/O ABDOMINAL PAIN X1 WEEK, WORSE PAST 2 DAYS. +N/V/D. TOOK 800MG IBUPROFEN PARKING LOT ATTENDANT AND CASHIER. PAIN LEVEL OF 10/10. PT IS AOX4, USES A WHEELCHAIR, VSS, RR EVEN AND UNLABORED. STATES SHE'S NORMALLY ON O2 AT HOME, PLACED ON 3L NC. SATTING AT 98%. NO OTHER COMPLAINTS AT THIS TIME. READY FOR EVAL.
[2018-02-27] MEDS ORDERED: HYDROMORPHONE 1 MG/1 ML DISP.SYRIN ONE (21:58)
[2018-02-27] MEDS ORDERED: ONDANSETRON HCL/PF 4 MG/2 ML VIAL ONE (21:58)
[2018-02-27] MEDS ORDERED: IV NS 0.9% 1,000 ML BAG IV ONE (22:00)
[2018-02-27] MEDS ORDERED: ONDANSETRON HCL/PF 4 MG/2 ML VIAL IVP ONE (22:00)
[2018-02-27] MEDS ORDERED: HYDROMORPHONE INJ 0.5 MG/0.5 ML SYRINGE IV ONE (22:00)
[2018-02-27] MEDS ORDERED: MORPHINE SULFATE INJ 2 MG/ML DISP.SYRIN IV ONE (22:00)
--- NOTE | 2018-02-27 22:08 | NUR ---
PHLEB AT BEDSIDE
--- NOTE | 2018-02-27 22:40 | NUR ---
URINE SENT TO STAT LAB
[2018-02-27 22:42] LABS: BASOPHILS # (AUTO) 0.1 /CMM (0.0-0.2); BASOPHILS % (AUTO) 0.5 % (0.0-2.0); EOSINOPHILS % (AUTO) 1.1 % (0.0-6.0); HEMATOCRIT 44 % (33-45); HEMOGLOBIN 14.9 g/dL (11.5-14.8); LYMPHOCYTES # (AUTO) 3.2 /CMM (0.8-4.8); LYMPHOCYTES % (AUTO) 32.1 % (20.0-44.0); MEAN CORPUSCULAR HGB CONC 34 g/dl (31.0-36.0); MEAN CORPUSCULAR VOLUME 88 fL (82-100); MONOCYTES # (AUTO) 0.6 /CMM (0.1-1.30); MONOCYTES % (AUTO) 5.8 % (2.0-12.0); NEUTROPHILS % (AUTO) 60.5 % (43.0-81.0); PLATELET COUNT (AUTO) 259 /CMM (150-450); RED BLOOD CELL COUNT(AUTO) 4.99 MIL/uL (4.0-5.2); WHITE BLOOD COUNT (AUTO) 9.9 K/uL (4.3-11.0)
[2018-02-27 22:50] LABS: APPEARANCE,URINE CLEAR (CLEAR); BILIRUBIN,URINE NEGATIVE (NEGATIVE); BLOOD, URINE TRACE Ery/uL (NEGATIVE); COLOR,URINE YELLOW (YELLOW); KETONES,URINE NEGATIVE (NEGATIVE); LEUKOCYTE ESTERASE ,URINE NEGATIVE (NEGATIVE); NITRITE, URINE NEGATIVE (NEGATIVE); PROTEIN,URINE NEGATIVE (NEGATIVE); UGLUCOSE 3+ mg/dL (NEGATIVE); UROBILINOGEN,URINE 0.2 EU/dL (0.2)
[2018-02-27 22:58] LABS: POTASSIUM 3.6 mmol/L (3.5-5.1)
[2018-02-27 22:59] LABS: ALBUMIN 3.2 g/dL (3.4-5.0); BILIRUBIN,DIRECT 0.1 mg/dL (0.0-0.2); BILIRUBIN,TOTAL 0.2 mg/dL (0.2-1.0); CALCIUM, SERUM 8.7 mg/dL (8.5-10.1); CREATININE 0.7 mg/dL (0.6-1.3)
[2018-02-27 23:04] LABS: BACTERIA,URINE Moderate /HPF (None Seen); SQUAMOUS EPITHELIAL CELL,UR Few /HPF (None Seen); WBC,URINE 0-2 /HPF (0-3)
[2018-02-27 23:06] LABS: B-TYPE NATRIURETIC PEPTIDE 38 PG/ML (0-125)
--- NOTE | 2018-02-27 23:07 | NUR ---
Patient is resting comfortably in bed. Easily aroused. VSS
[2018-02-28] MEDS ORDERED: HYDROMORPHONE 1 MG/1 ML DISP.SYRIN IV ONE
--- NOTE | 2018-02-28 00:07 | NUR ---
PT ENDORSED TO ABDULLAHI DORANTES FOR FRITZ
[2018-02-28] MEDS ORDERED: HYDROMORPHONE 1 MG/1 ML DISP.SYRIN ONE (00:32)
--- NOTE | 2018-02-28 01:00 | NUR ---
PT RESTING COMFORTABLY IN BED. VITAL SIGNS STABLE. NO ACUTE DISTRESS NOTED AT THIS TIME. WILL CONTINUE TO MONITOR
--- NOTE | 2018-02-28 02:26 | NUR ---
GAVE REPORT TO SHITAL RN FOR FRITZ
[2018-02-28] MEDS ORDERED: HYDROCODONE/APAP 10/325MG 1 EA TABLET PO PRN (02:30)
[2018-02-28] MEDS ORDERED: ALPRAZOLAM 0.5 MG TABLET PO PRN (02:30)
[2018-02-28] MEDS ORDERED: IV NS 0.9% 1,000 ML IV PRN (02:34)
[2018-02-28 03:00] VITALS: BP 142/91
[2018-02-28] MEDS ORDERED: MORPHINE SULFATE INJ 2 MG/ML DISP.SYRIN IV PRN (03:00)
[2018-02-28] MEDS ORDERED: ACETAMINOPHEN 325 MG TABLET PO PRN (03:00)
--- NOTE | 2018-02-28 03:00 | NUR ---
RECEIVED PATIENT FROM ER FOR DX GRCAY PAIN AND BLASTIC LESIONS ON T7. AO X 3, ABLE TO MAKE NEEDS KNOWN. NO ACUTE DISTRESS NOTED. MONITORED FOR PAIN. IV SITE PATENT, INTACT; FLUSHED. SKIN ASSESSMENT DONE. SAFETY REMINDERS GIVEN. ON LOW BED WITH BILATERAL UPPER SIDE RAILS UP. CALL BOWERS WITHIN EASY REACH. WILL CONTINUE TO MONITOR.
--- NOTE | 2018-02-28 03:07 | NUR ---
TRANSFERRED PT TO [facility] VIA SUKHJINDER
[2018-02-28] MEDS ORDERED: DEXTROSE 50%-WATER 50 ML DISP.SYRIN IV PRN (05:30)
[2018-02-28] MEDS: HYDROCODONE/APAP 10/325MG 1 EA TABLET PO PRN (05:42)
[2018-02-28] MEDS: ONDANSETRON HCL/PF 4 MG/2 ML VIAL IVP PRN (05:59)
--- NOTE | 2018-02-28 06:30 | NUR ---
PATIENT ASLEEP, EASILY AROUSABLE. RESPIRATIONS EVEN. NO SIGNS OF PAIN NOTED. IVF INFUSING ORDERED. NEEDS ATTENDED. SAFETY PRECAUTIONS AND COMFORT MEASURES IN PLACE. WILL GIVE REPORT TO DAY SHIFT FOR CONTINUITY OF CARE.
[2018-02-28] MEDS: BLOOD SUGAR DIAGNOSTIC 1 EACH STRIP IN SCH ×4 (07:00→21:14)
[2018-02-28] MEDS: INSULIN REGULAR, HUMAN 100 UNIT/ML 3 ML VIAL SQ PRN ×2 (07:09→12:10)
--- NOTE | 2018-02-28 07:35 | NUR ---
MS/RN Patient received Patient received from maintenance supervisor 2nd shift. A/O X4, vital signs stable, appears comfortable at this time. IV fluids infusing at 75ml/hr, no signs of infiltration see. Call light within reach, side rails X3 in upright position, bed in low setting. Will continue to monitor and ensure safety.
[2018-02-28 08:00] VITALS: BP 133/79
[2018-02-28] MEDS: PANTOPRAZOLE 40 MG VIAL IV SCH (08:28)
[2018-02-28] MEDS: METFORMIN 500 MG TABLET PO SCH ×2 (08:29→16:59)
[2018-02-28] MEDS: FUROSEMIDE 40 MG TABLET PO SCH (08:29)
[2018-02-28] MEDS: ASPIRIN EC 81 MG TABLET.DR PO SCH (08:29)
[2018-02-28] MEDS: LISINOPRIL (5MG) 5 MG TABLET PO SCH (08:29)
[2018-02-28] MEDS: CYCLOBENZAPRINE 10 MG TABLET PO SCH ×3 (08:29→16:59)
[2018-02-28] MEDS: INSULIN GLARGINE, 100 UNIT/ML CARTRIDGE SQ SCH ×2 (08:36→17:01)
[2018-02-28] MEDS: GABAPENTIN 300 MG CAPSULE PO SCH ×3 (08:37→16:59)
[2018-02-28] MEDS: FLUOXETINE HCL 20 MG/5 ML UDC PO SCH ×2 (09:00→17:08)
--- NOTE | 2018-02-28 10:00 | NUR ---
MS/RN New heplock New heplock inserted to left forearm, 22g.
--- NOTE | 2018-02-28 12:30 | NUR ---
MS/RN Hyperglycemia Blood sugar at noon 404, value rejected and new test run, resulted as 407. Stat blood glucose ordered, maximum 10 units given as per sliding scale and Dr Estrada notified. Random blood glucose 373. Call back received from MD - no new orders.
[2018-02-28] MEDS: HYDROMORPHONE INJ 2 MG/ML DISP.SYRIN IV PRN ×2 (12:39→17:03)
--- NOTE | 2018-02-28 13:32 | NUR ---
MS/RN S/B Dr Estrada Seen by Dr Estrada - fluids increased to 125ml/hr, morphine changed to dilaudid 0.5mg. GI consult requested, patient to remain on clear liquids until that time. Morning labs ordered.
[2018-02-28 16:00] VITALS: BP 130/70
[2018-02-28] MEDS: IV NS 0.9% 1,000 ML IV PRN (17:10)
--- NOTE | 2018-02-28 17:15 | NUR ---
MS/RN Blood sugar Blood sugar at 5p - 272, insulin administered as ordered.
[2018-02-28] MEDS: AMLODIPINE BESYLATE 5 MG TABLET PO SCH (17:40)
--- NOTE | 2018-02-28 18:53 | NUR ---
MS/RN End note Pain well controlled at this time, no new concerns, will endorse to shift production supervisor.
--- NOTE | 2018-02-28 19:30 | NUR ---
RECEIVED PATIENT IN BED ASLEEP, EASILY AROUSABLE. AO X 3, ABLE TO MAKE NEEDS KNOWN. NO ACUTE DISTRESS NOTED. NO SIGNS OF PAIN NOTED. IV SITE PATENT, INTACT; IVF INFUSING ORDERED. SAFETY REMINDERS GIVEN. ON LOW BED WITH BILATERAL UPPER SIDE RAILS UP. CALL BOWERS WITHIN EASY REACH. WILL CONTINUE TO MONITOR.
[2018-02-28 20:00] VITALS: BP 110/64
[2018-02-28 20:03] VITALS: BP 110/64
[2018-02-28] MEDS ORDERED: MAGNESIUM CITRATE 296 ML BOTTLE PO ONE (20:30)
[2018-02-28] MEDS ORDERED: PEG 3350/NA SULF,BICARB,CL/KCL 4,000 ML BOTTLE PO ONE (20:30)
[2018-02-28] MEDS: TRAZODONE 50 MG TABLET PO SCH (21:15)
[2018-02-28] MEDS: ATORVASTATIN 40 MG TABLET PO SCH (21:15)
[2018-02-28] MEDS: MONTELUKAST SODIUM (10MG) 10 MG TABLET PO SCH (21:15)
--- NOTE | 2018-02-28 21:53 | NUR ---
PATIENT REFUSED TO EAT A SNACK; AT RISK FOR LOW BLOOD SUGAR. INSULIN HELD.
[2018-03-01] MEDS: IV NS 0.9% 1,000 ML IV PRN ×2 (05:15→16:07)
[2018-03-01] MEDS: HYDROMORPHONE INJ 2 MG/ML DISP.SYRIN IV PRN ×4 (05:16→20:52)
--- NOTE | 2018-03-01 06:00 | NUR ---
PATIENT ASLEEP, EASILY AROUSABLE. RESPIRATIONS EVEN. NO SIGNS OF PAIN NOTED. NO SYMPTOMS OF HYPER/HYPOGLYCEMIA. DUE MEDS GIVEN WITH NO ASE NOTED. PATIENT WAS REMINDED AGAIN THAT SHE NEEDS TO BE ON CLEAR LIQUID. NEEDS ATTENDED. SAFETY PRECAUTIONS AND COMFORT MEASURES IN PLACE. WILL GIVE REPORT TO DAY SHIFT FOR CONTINUITY OF CARE.
[2018-03-01 06:27] LABS: CALCIUM, SERUM 8.3 mg/dL (8.5-10.1); CREATININE 0.7 mg/dL (0.6-1.3); MAGNESIUM 1.7 mg/dL (1.8-2.4); PHOSPHORUS 3.2 mg/dL (2.5-4.9); POTASSIUM 3.6 mmol/L (3.5-5.1)
[2018-03-01 06:33] LABS: BASOPHILS % (AUTO) 0.2 % (0.0-2.0); HEMATOCRIT 41 % (33-45); HEMOGLOBIN 13.7 g/dL (11.5-14.8); LYMPHOCYTES # (AUTO) 2.2 /CMM (0.8-4.8); LYMPHOCYTES % (AUTO) 16.8 % (20.0-44.0); MEAN CORPUSCULAR HGB CONC 33 g/dl (31.0-36.0); MEAN CORPUSCULAR VOLUME 89 fL (82-100); MONOCYTES # (AUTO) 0.6 /CMM (0.1-1.30); MONOCYTES % (AUTO) 4.4 % (2.0-12.0); NEUTROPHILS # (AUTO) 10.4 /CMM (1.8-8.9); NEUTROPHILS % (AUTO) 77.6 % (43.0-81.0); PLATELET COUNT (AUTO) 231 /CMM (150-450); RED BLOOD CELL COUNT(AUTO) 4.59 MIL/uL (4.0-5.2); WHITE BLOOD COUNT (AUTO) 13.3 K/uL (4.3-11.0)
[2018-03-01 06:38] LABS: THYROID STIMULATING HORMONE 0.728 uIU/mL (0.358-3.74)
[2018-03-01] MEDS: BLOOD SUGAR DIAGNOSTIC 1 EACH STRIP IN SCH ×4 (06:44→21:05)
[2018-03-01] MEDS: INSULIN REGULAR, HUMAN 100 UNIT/ML 3 ML VIAL SQ PRN ×5 (06:46→23:10)
--- NOTE | 2018-03-01 07:31 | NUR ---
MS RN OPENING NOTES RECEIVED PT AWAKE IN BED IN NO ACUTE SIGNS OF DISTRESS. HOB ELEVATED. A/O X4. ABLE TO VERBALIZED NEEDS, NO C/O PAIN OR DISCOMFORTS VOICED AT THIS TIME. ON 02 VIA N/C @ 2LPM, BREATHING EVEN AND UNLABORED. IV ACCESS ON RIGHT HAND INTACT AND PATENT, IVF OF NS @ 125ML/HR INFUSING , NO S/S OF INFILTRATIONS NOTED. SAFETY MEASURES IN PLACE. BED IN LOW LOCKED POSITION WITH SIDE-RAILS UP X2. CALL LIGHT IN REACH. WILL CONTINUE TO MONITOR PT.
[2018-03-01] MEDS: HYDROCODONE/APAP 10/325MG 1 EA TABLET PO PRN (07:52)
--- NOTE | 2018-03-01 07:54 | NUR ---
RN NOTES/PAIN MANAGEMENT PT NOTED GRIMACING AND MOANING WITH COMPLAINED OF PAIN SHARP PAIN ON HER RIGHT UPPER QUADRANT, PRN NORCO 10/325 X 2TABS GIVEN AT 0752. WILL CONTINUE TO MONITOR AND REASSESS PT.
[2018-03-01 08:00] VITALS: BP 116/66
[2018-03-01] MEDS: ASPIRIN EC 81 MG TABLET.DR PO SCH (08:47)
[2018-03-01] MEDS: PANTOPRAZOLE 40 MG VIAL IV SCH (08:47)
[2018-03-01] MEDS: CYCLOBENZAPRINE 10 MG TABLET PO SCH ×3 (08:48→16:36)
[2018-03-01] MEDS: METFORMIN 500 MG TABLET PO SCH ×2 (08:48→16:36)
[2018-03-01] MEDS: FUROSEMIDE 40 MG TABLET PO SCH (08:48)
[2018-03-01] MEDS: LISINOPRIL (5MG) 5 MG TABLET PO SCH (08:49)
[2018-03-01] MEDS: GABAPENTIN 300 MG CAPSULE PO SCH ×3 (08:49→16:36)
[2018-03-01] MEDS: INSULIN GLARGINE, 100 UNIT/ML CARTRIDGE SQ SCH ×2 (09:16→17:44)
[2018-03-01] MEDS: FLUOXETINE HCL 20 MG CAPSULE PO SCH (09:29)
--- NOTE | 2018-03-01 10:22 | NUR ---
RN NOTES/PAIN MANAGEMENT PT NOTED GRIMACING AND MOANING WITH COMPLAINED OF SHARP PAIN ON HER RIGHT UPPER QUADRANT WITH SCALE OF 8/10, PRN DILAUDID 0.5MG IVP ADMINISTERED AT 1018. WILL CONTINUE TO MONITOR AND REASSESS PT
[2018-03-01] MEDS ORDERED: Magnesium 1GM/D5W 100ML PREMIX 100 ML IV SCH (10:30)
--- NOTE | 2018-03-01 12:21 | NUR ---
RN NOTES PATIENT FOR EGD AND COLONOSCOPY TOMORROW. PROCEDURES EXPLAINED AND VERBALIZED UNDERSTANDING. CONSENTS SIGNED AND FILED ON CHART. WILL CONTINUE TO MONITOR.
[2018-03-01] MEDS: NA PHOS,M-B/NA PHOS,DI-BA 1 EA ENEMA RC PRN (15:59)
[2018-03-01 16:00] VITALS: BP 109/69
--- NOTE | 2018-03-01 16:05 | NUR ---
RN NOTES PT HASN'T DONE ANY BOWEL MOVEMENT YET, FLEET ENEMA GIVEN PER MD ORDER. WILL CONTINUE TO MONITOR.
--- NOTE | 2018-03-01 16:41 | NUR ---
RN NOTES/PAIN MANAGEMENT PT VERBALIZED THAT AFTER DOING BOWEL MOVEMENT OF LARGE HARD STOOL SHE HAD BLOOD STAIN ON THE TISSUE THAT SHE USED TO CLEAN HER RECTUM. MD MADE AWARE, NO NEW ORDER MADE. PT ALSO COMPLAINED OF SHARP THROBBING PAIN ON HER RIGHT UPPER QUADRANT WITH SCALE OF 9/10 AFTER DOING BOWEL MOVEMENT AND ASKED FOR HER DILAUDID. PRN DILAUDID 0.5MG IVP ADMINISTERED AT 1638. WILL CONTINUE TO MONITOR AND REASSESS PT
[2018-03-01] MEDS: AMLODIPINE BESYLATE 5 MG TABLET PO SCH (18:03)
--- NOTE | 2018-03-01 18:46 | NUR ---
MS RN CLOSING NOTES PT AWAKE AND WATCHING TV IN BED WITH AT BEDSIDE. A/O X4, SAME VERBALLY RESPONSIVE. PT FOR EGD AND COLONOSCOPY TOMORROW, NPO ENFORCED AND WILL START D5 1/2 NS AT 1200(MIDNIGHT) PER LIBRARIAN ASSISTANT MARIA LUISA HERNANDEZ. ON 02 VIA N/C @ 2LPM, BREATHING EVEN WITH NO ACUTE RESPIRATORY DISTRESS NOTED. IV ACCESS ON RIGHT HAND INTACT AND PATENT, IVF OF NS @ 125ML/HR INFUSING WELL, NO S/S OF INFILTRATIONS NOTED.ALL NEEDS AND CARE ATTENDED WELL. ALL SAFETY MEASURES KEPT IN PLACE. HOB KEPT ELEVATED. BED IN LOW LOCKED POSITION WITH SIDE-RAILS UP X2. CALL LIGHT IN REACH. WILL ENDORSE TO WET PROCESS MILLER HEAD ASSISTANT NURSE FOR FRITZ. .
--- NOTE | 2018-03-01 19:43 | NUR ---
MS ABDULLAHI OPENING NOTES: RECEIVED PT ON 2LPM VIA NC AND IS TOLERATING WELL. PT A/OX4. PT AWARE THAT SHE IS NPO BUT TO DRINK THE GOLYTELY SHE IS FOR PROCEDURE TOMORROW AM. ALSO, PT CONSENTED FOR CT AB AND PELVIS WITH CONTRAST. CONSENT PLACED IN CHART. RADIOLOGY AWARE. IV IN TACT AND IS BEING INFUSED WIT HIV NS AT 125ML/HR. BED KEPT IN LOW, LOCKED POSITION, AND SIDE RAILS X 2UP. WILL CONTINUE TO MONITOR PT. Addendum: 03/01/18 at 195 by TING CHOWDARY RN PER AM NURSE ENDORSEMENT, ALEJANDRO HERNANDEZ SAID TO NON-ADMIN EVENING MEDICATIONS AND PT NOW COMPLETELY NPO. PT TO BE STARTED ON IV FLUIDS D51/2 NS AT 100ML/HR. Addendum: 03/02/18 at 0624 by TING CHOWDARY RN WITH
[2018-03-01 20:33] VITALS: BP 130/74
--- NOTE | 2018-03-01 20:35 | NUR ---
Met with patient,she is alert and pleasant. She lives on the 1st floor apartment with her roommate/caregiver Isaak Rodriguez [phone]. She is wheelchair bound and on home o2 due to hx of COPD. She requires mod-max assist with adl's.Has adequate DME: wheelchair,shower chair,Home O2, walker, hoyerlift and commode. She receives IHSS and Isaak is her caregiver provider. Patient states her wheelchair is 15years and is broken. She requested a new wheelchair prior discharge. Caregiver Isaak will provide ride when discharge. Addendum: 03/01/18 at 2035 by LETICIA MANZANARES RN Amended: Links added.
--- NOTE | 2018-03-01 20:56 | NUR ---
MS RN NOTES: PT COMPLAINING OF 10/10 RUQ PAIN. PT WAS ADMINISTERED DILAUDID VIA IV. WILL CONTINUE TO MONITOR.
[2018-03-01] MEDS: ONDANSETRON HCL/PF 4 MG/2 ML VIAL IVP PRN (21:09)
--- NOTE | 2018-03-01 21:12 | NUR ---
MS RN NOTES: PT ADMINISTERED ZOFRAN 4 VIA IV D/T FEELING NAUSEOUS. PT TAKEN TO RADIOLOGY FOR CT.
[2018-03-01] MEDS ORDERED: CT SWABBABLE VALVE TRANS SET 1 EA INFUS.SET MC ONE (21:16)
[2018-03-01] MEDS ORDERED: IOHEXOL-300 100 ML VIAL IV ONE (21:16)
[2018-03-01] MEDS ORDERED: IV NS 0.9% 250 ML IV ONE (21:16)
--- NOTE | 2018-03-01 21:36 | NUR ---
MS RN NOTES: PT BACK FROM RADIOLOGY.
--- NOTE | 2018-03-01 21:46 | NUR ---
MS RN NOTES: PACKAGER MACHINE ABDULLAHI ANGEL CALLED AND INFORMED ME THAT THE CASE FOR EGD/COLONOSCOPY CANCELLED FOR TOMORROW AM. FOLLOWING UP WITH CASUALTY CLAIMS SUPERVISOR MARIA LUISA HERNANDEZ AND AWAITING FOR RESPONSE.
--- NOTE | 2018-03-01 22:21 | NUR ---
MS RN NOTES: CALLED DR. FONTENOT'S OFFICE. FINISHER [employer] LEFT A VOICEMAIL. AWAITING FOR CALL BACK.
--- NOTE | 2018-03-01 22:43 | NUR ---
MS RN NOTES: BLOOD SUGAR WAS 163. NON ADMIN INSULIN D/T PT BEING NPO. STILL AWAITING TO HEAR BACK FROM OR FINISHED CLOTH EXAMINER MARIA LUISA HERNANDEZ.
--- NOTE | 2018-03-01 22:46 | NUR ---
MS FERNANDO NOTES: PER PROPULSION SYSTEMS ENGINEER MARIA LUISA HERNANDEZ, STOP DRINKING GOLYTELY AND OK TO RESUME ON DIET. Addendum: 03/01/18 at 2251 by TING CHOWDARY RN OK TO PUT ON CCHO DIET. DISREGARD D5 1/2NS FLUIDS FOR NOW AND CONTINUE IV NS AT 125ML/HR.
[2018-03-01] MEDS: TRAZODONE 50 MG TABLET PO SCH (22:54)
[2018-03-01] MEDS: ATORVASTATIN 40 MG TABLET PO SCH (22:54)
[2018-03-01] MEDS: MONTELUKAST SODIUM (10MG) 10 MG TABLET PO SCH (22:54)
--- NOTE | 2018-03-01 23:17 | NUR ---
Faxed order for wheelchair and clinicals to [employer] financial planner and window caser [phone] for auth. Referral for wheelchair faxed to contracted vendor [facility] intake [facility] [phone]. Addendum: 03/01/18 at 6767 by LETICIA MANZANARES RN Amended: Links added.
--- NOTE | 2018-03-01 23:17 | NUR ---
MS RN NOTES: BLOOD SUGAR WAS 163. 3 UNITS OF INSULIN WAS ADMINISTERED PT WAS RESUMED BACK ON A DIET. JELLO AND SANDWICH AT BEDSIDE. PT CURRENTLY EATING.
[2018-03-02] MEDS ORDERED: IV D5/0.45 NACL 1,000 ML IV PRN
[2018-03-02] MEDS: IV NS 0.9% 1,000 ML IV PRN ×2 (01:24→09:42)
[2018-03-02] MEDS: HYDROMORPHONE INJ 2 MG/ML DISP.SYRIN IV PRN ×4 (01:25→15:45)
--- NOTE | 2018-03-02 01:31 | NUR ---
MS RN NOTES: PT HOLDING ONTO HER ABDOMEN AND COMPLAINING OF RUQ PAIN. PT WAS ADMINISTERED DILAUDID VIA IV. WILL REASSESS.
[2018-03-02 05:40] VITALS: BP 141/99
--- NOTE | 2018-03-02 05:51 | NUR ---
MS RN NOTES: PT COMPLAINING OF 9/10 RUQ PAIN. PT WAS ADMINISTERED DILAUDID 0.5MG VIA IV. WILL CONTINUE TO REASSESS.
[2018-03-02] MEDS: BLOOD SUGAR DIAGNOSTIC 1 EACH STRIP IN SCH ×4 (06:11→21:38)
[2018-03-02 06:27] LABS: CALCIUM, SERUM 7.3 mg/dL (8.5-10.1); CREATININE 0.7 mg/dL (0.6-1.3); MAGNESIUM 1.7 mg/dL (1.8-2.4); POTASSIUM 3.5 mmol/L (3.5-5.1)
[2018-03-02] MEDS: INSULIN REGULAR, HUMAN 100 UNIT/ML 3 ML VIAL SQ PRN ×4 (06:28→21:42)
--- NOTE | 2018-03-02 06:35 | NUR ---
MS RN NOTES: BLOOD SUGAR THIS AM WAS 230. 4 UNITS OF INSULIN WAS ADMINISTERED. SNACKS PROVIDED. WILL ENDORSE TO AM NURSE FOR FRITZ.
--- NOTE | 2018-03-02 07:27 | NUR ---
MS RN CLOSING NOTES: ALL NEEDS WERE ATTENDED AND ANTICIPATED FOR. PT KEPT CLEAN, DRY, AND COMFORTABLE. PT SITTING UP IN BED AT THIS TIME. PT STILL COMPLAINING OF PAIN IN HER ABDOMEN. IV REMAINS INTACT AND IS BEING INFUSED WITH IV NS AT 125ML/HR. BED KEPT IN LOW, LOCKED POSITION, AND SIDE RAILS X 2UP. ENDORSED TO AM NURSE FOR FRITZ.
[2018-03-02 07:31] LABS: BASOPHILS % (AUTO) 0.2 % (0.0-2.0); EOSINOPHILS % (AUTO) 2.1 % (0.0-6.0); HEMATOCRIT 38 % (33-45); HEMOGLOBIN 12.6 g/dL (11.5-14.8); LYMPHOCYTES # (AUTO) 2.3 /CMM (0.8-4.8); LYMPHOCYTES % (AUTO) 28.9 % (20.0-44.0); MEAN CORPUSCULAR HGB CONC 33 g/dl (31.0-36.0); MEAN CORPUSCULAR VOLUME 90 fL (82-100); MONOCYTES # (AUTO) 0.5 /CMM (0.1-1.30); MONOCYTES % (AUTO) 6.6 % (2.0-12.0); NEUTROPHILS # (AUTO) 4.9 /CMM (1.8-8.9); NEUTROPHILS % (AUTO) 62.2 % (43.0-81.0); PLATELET COUNT (AUTO) 217 /CMM (150-450); RED BLOOD CELL COUNT(AUTO) 4.19 MIL/uL (4.0-5.2); WHITE BLOOD COUNT (AUTO) 7.9 K/uL (4.3-11.0)
[2018-03-02 07:55] VITALS: BP 150/90
[2018-03-02] MEDS: PANTOPRAZOLE 40 MG VIAL IV SCH (08:24)
[2018-03-02] MEDS: LISINOPRIL (5MG) 5 MG TABLET PO SCH (08:25)
[2018-03-02] MEDS: FLUOXETINE HCL 20 MG CAPSULE PO SCH (08:25)
[2018-03-02] MEDS: GABAPENTIN 300 MG CAPSULE PO SCH ×3 (08:25→16:17)
[2018-03-02] MEDS: ASPIRIN EC 81 MG TABLET.DR PO SCH (08:27)
[2018-03-02] MEDS: CYCLOBENZAPRINE 10 MG TABLET PO SCH ×3 (08:27→16:17)
[2018-03-02] MEDS: FUROSEMIDE 40 MG TABLET PO SCH (08:27)
[2018-03-02] MEDS: HYDROCODONE/APAP 10/325MG 1 EA TABLET PO PRN ×2 (08:27→17:49)
--- NOTE | 2018-03-02 08:30 | NUR ---
MS RN INITIAL NOTES Patient is awake, sitting up in bed, had breakfast with good appetite. Report loose bowel movement, patient had bowel prep last night, denies N/V, c/o right side lat back pain/abd. pain, passing gas. Stable RA, IVF infusing. Patient reports dilaudid IV not effective, per patient Morphine does. Education provided, offered PO PRN norco, verbalized understanding. Given PO PRN norco, will reassess pain scale. Maintained safety, will cont to monitor.
[2018-03-02] MEDS: INSULIN GLARGINE, 100 UNIT/ML CARTRIDGE SQ SCH ×2 (08:40→17:47)
[2018-03-02] MEDS: METFORMIN 500 MG TABLET PO SCH ×2 (09:00→16:18)
[2018-03-02] MEDS: Magnesium 1GM/D5W 100ML PREMIX 100 ML IV SCH ×2 (10:48→12:39)
[2018-03-02] MEDS: ONDANSETRON HCL/PF 4 MG/2 ML VIAL IVP PRN (13:04)
[2018-03-02 13:08] LABS: AFP, TUMOR MARKER 3.3 ng/mL (0.0-8.3); CANCER AG, 125 8.6 U/mL (0.0-38.1)
[2018-03-02 16:04] VITALS: BP 118/66
[2018-03-02] MEDS: AMLODIPINE BESYLATE 5 MG TABLET PO SCH (17:44)
--- NOTE | 2018-03-02 18:42 | NUR ---
MS RN CLOSING NOTES Patient is awake, sitting up in bed, had dinner with good appetite. EGD/Colonoscopy was not done today due to OR scheduling, patient received enema last night and with episode of loose stool x2 this shift. Right abdomen/back pain managed with PRN IV Dilaudid and PRN [place]. Low magnesium today, supplemented as ordered. Patient is seen by Dr. Estrada today, Metformin dose held for 48 hours due to IV contrast given yesterday for CT abd/pelvis, will endorse to oncoming RN. Per KNITTER MACHINE Lizeth/GI to start bowel prep in am, patient made aware and wants to speak with GI first before taking laxatives again, will endorse to oncoming RN. Maintained safety.
--- NOTE | 2018-03-02 18:57 | NUR ---
MS RN CLOSING NOTES Patient is awake, sitting up in bed, had dinner, tolerating soft diet. S/P lap appendectomy today by Dr. Rockwell, abdomen incision intact, incisional pain managed with PRN PO norco. IVF infusing, urine specimen collected and send to lab for test. Patient ambulates, stable V/S. IS encouraged, education provided, verbalized understanding. Will endorse to oncoming RN, maintained safety.
--- NOTE | 2018-03-02 19:20 | NUR ---
MS/RN OPENING NOTES PT RECEIVED AWAKE, CAREGIVER AT BEDSIDE. A/OX3. ON 2L O2 VIA NC, BREATHING EVEN AND UNLABORED. DENIES SOB, AND PAIN, IN NO ACUTE DISTRESS AT THIS TIME. IV TO RIGHT HAND PATENT AND INTACT. PT REFUSING ANY SORT OF BOWEL PREP UNTIL SHE SPEAKS TO GI. MARIA LUISA HERNANDEZ INFORMED AND WILL BE HERE SHORTLY. PT AWARE. BED IN LOW/LOCKED POSITION WITH CALL LIGHT IN REACH. BILATERAL UPPER SIDE RAILS IN PLACE. WILL CONTINUE TO MONITOR
--- NOTE | 2018-03-02 19:49 | NUR ---
MS/RN NOTES MARIA LUISA HERNANDEZ COUNSELING SERVICES MANAGER AT BEDSIDE FOR ASSESSMENT AND EXPLANATION OF EGD/COLONOSCOPY. PT AGREED TO BOWEL PREP AND PROCEDURE. MARIA LUISA WITH VERBAL ORDERS TO START CLEAR LIQUID DIET NOW, BEGIN GOLYTELY AND 1 BOTTLE OF MAG CIT[place] TOMORROW MORNING FOR EGD/COLONOSCOPY Sunday03/04/17. NPO Sunday03/03/17 @ 0000. ALSO FLEET ENEMA PRN X1 ON Sunday PRIOR TO PROCEDURE IF STILL NOT CLEAR. PT VERBALIZED UNDERSTANDING OF PROCEDURES, ALL QUESTIONS ANSWERED.
[2018-03-02 20:00] VITALS: BP 107/77
[2018-03-02] MEDS: TRAZODONE 50 MG TABLET PO SCH (21:38)
[2018-03-02] MEDS: ATORVASTATIN 40 MG TABLET PO SCH (21:38)
[2018-03-02] MEDS: MONTELUKAST SODIUM (10MG) 10 MG TABLET PO SCH (21:38)
--- NOTE | 2018-03-02 21:47 | NUR ---
MS/RN NOTES PT C/O HEADACHE, ADMINISTERED PRN TYLENOL ORDERED.
[2018-03-03] MEDS: HYDROCODONE/APAP 10/325MG 1 EA TABLET PO PRN ×2 (05:16→16:23)
[2018-03-03] MEDS: BLOOD SUGAR DIAGNOSTIC 1 EACH STRIP IN SCH ×4 (06:37→21:33)
[2018-03-03 06:45] LABS: BASOPHILS % (AUTO) 0.3 % (0.0-2.0); EOSINOPHILS % (AUTO) 2.1 % (0.0-6.0); HEMATOCRIT 37 % (33-45); HEMOGLOBIN 12.2 g/dL (11.5-14.8); LYMPHOCYTES # (AUTO) 2.2 /CMM (0.8-4.8); LYMPHOCYTES % (AUTO) 29.9 % (20.0-44.0); MEAN CORPUSCULAR HGB CONC 33 g/dl (31.0-36.0); MEAN CORPUSCULAR VOLUME 90 fL (82-100); MONOCYTES # (AUTO) 0.6 /CMM (0.1-1.30); MONOCYTES % (AUTO) 7.7 % (2.0-12.0); NEUTROPHILS # (AUTO) 4.4 /CMM (1.8-8.9); PLATELET COUNT (AUTO) 212 /CMM (150-450); RED BLOOD CELL COUNT(AUTO) 4.08 MIL/uL (4.0-5.2); WHITE BLOOD COUNT (AUTO) 7.3 K/uL (4.3-11.0)
[2018-03-03] MEDS: INSULIN REGULAR, HUMAN 100 UNIT/ML 3 ML VIAL SQ PRN ×3 (06:46→16:31)
[2018-03-03 06:50] LABS: CALCIUM, SERUM 8.5 mg/dL (8.5-10.1); CREATININE 0.7 mg/dL (0.6-1.3); MAGNESIUM 1.8 mg/dL (1.8-2.4); PHOSPHORUS 4.3 mg/dL (2.5-4.9); POTASSIUM 4.4 mmol/L (3.5-5.1)
[2018-03-03 07:00] VITALS: BP 104/63
--- NOTE | 2018-03-03 07:30 | NUR ---
MS/RN CLOSING NOTES PT AWAKE, SITTING UP IN BED. ON 2L O2 VIA NC, BREATHING EVEN AND UNLABORED. IN NO ACUTE DISTRESS. DENIES SOB, NOTES PAIN/TENDERNESS TO RUQ THROUGHOUT SHIFT, EFFECTIVE WITH PRN NORCO. IV TO LEFT HAND PATENT AND INTACT. REMINDED PT REGARDING CLEAR LIQUID DIET FOR EGD/COLONOSCOPY TOMORROW. CONSENTS SIGNED AND IN THE CHART. NO SIGNIFICANT CHANGES OVERNIGHT. ALL NEEDS MET. BED IN LOW/LOCKED POSITION WITH CALL LIGHT IN REACH. BILATERAL UPPER SIDE RAILS IN PLACE. ENDORSED TO DAY SHIFT RN FRITZ.
--- NOTE | 2018-03-03 07:52 | NUR ---
MS RN OPENING NOTE RECEIVED REPORT BY LYFT DRIVER RN. PATIENT IS AWAKE ALERT AND ORIENTED x4 IN BED LOCKED IN LOWEST POSITION WITH SIDERAILS UP x2 FOR SAFETY. ABLE TO COMMUNICATE NEEDS. BESIDE COMMODE WITH ASSISTANCE. CLEAR LIQUID DIET FOR EGD/ COLONOSCOPY SCHEDULED 03/04/18, CONSENTS SIGNED AND PLACED IN CHART. BLOOD SUGARS TO BE MONITORED THROUGHOUT SHIFT AND INSULIN TO BE GIVEN ACCORDINGLY. LABS THIS MORNING. PATIENT HAD CT ABD/PELVIS DONE AND TO HAVE METFORMIN HELD FOR 48 HRS. NO ISOLATION. CALL LIGHT WITHIN REACH. NO FACIAL GRIMACING NOTED FOR PAIN AT THIS TIME. NO SOB OR DISTRESS NOTED ON 2L/MIN OF OXYGEN VIA NASAL CANNULA TOLERATING WELL. WILL CONTINUE TO MONITOR THROUGHOUT SHIFT FOR FRITZ
[2018-03-03 08:00] VITALS: BP 113/68
[2018-03-03 08:27] VITALS: BP 113/68
[2018-03-03] MEDS: ASPIRIN EC 81 MG TABLET.DR PO SCH (08:27)
[2018-03-03] MEDS: METFORMIN 500 MG TABLET PO SCH ×2 (08:27→16:20)
[2018-03-03] MEDS: FLUOXETINE HCL 20 MG CAPSULE PO SCH (08:28)
[2018-03-03] MEDS: PANTOPRAZOLE 40 MG VIAL IV SCH (08:28)
[2018-03-03] MEDS: LISINOPRIL (5MG) 5 MG TABLET PO SCH (08:28)
[2018-03-03] MEDS: GABAPENTIN 300 MG CAPSULE PO SCH ×3 (08:28→16:21)
[2018-03-03] MEDS: HYDROMORPHONE INJ 2 MG/ML DISP.SYRIN IV PRN ×3 (08:29→22:01)
[2018-03-03] MEDS: CYCLOBENZAPRINE 10 MG TABLET PO SCH ×3 (08:29→16:21)
[2018-03-03] MEDS: FUROSEMIDE 40 MG TABLET PO SCH (08:29)
--- NOTE | 2018-03-03 08:38 | NUR ---
MS RN NOTE PATIENT REQUESTING DILAUDID IVP FOR 8/10 RIGHT BACK PAIN THROBBING & TIGHTNESS. POSITIONED PATIENT TO MAKE COMFORTABLE STILL NOTICED WITH FACIAL GRIMACING WHEN REPOSITIONING. PAIN MEDICATION GIVEN. WILL MONITOR FOR EFFECTIVENESS
[2018-03-03] MEDS: INSULIN GLARGINE, 100 UNIT/ML CARTRIDGE SQ SCH ×2 (08:58→16:29)
[2018-03-03] MEDS ORDERED: PEG 3350/NA SULF,BICARB,CL/KCL 4,000 ML BOTTLE PO ONE (09:00)
[2018-03-03] MEDS ORDERED: MAGNESIUM CITRATE 296 ML BOTTLE PO ONE (09:00)
--- NOTE | 2018-03-03 11:20 | NUR ---
MS RN NOTE PATIENT MENTIONED THAT HER LEGS WERE ITCHY AND REQUESTING LOTION/CREAM FROM MD. INFORMED DR. BAXTER. RECEIVED ORDER FOR CALAMINE LOTION PRN FOR ITCHINESS. ORDER NOTED AND CARRIED OUT.
--- NOTE | 2018-03-03 11:39 | NUR ---
MS FERNANDO NOTE BS-225 INSULIN TO BE GIVEN ONCE TRAY AT BEDSIDE Addendum: 03/03/18 at 1211 by GRZEGORZ MENON RN 4 UNITS OF INSULIN GIVEN TRAY AT BEDSIDE
[2018-03-03] MEDS: ONDANSETRON HCL/PF 4 MG/2 ML VIAL IVP PRN (13:15)
--- NOTE | 2018-03-03 13:15 | NUR ---
Sitting upright, c/o right lat back pain 8/10, denies nausea, no vomiting, given Dilaudid 0.5mg IV prn, will reassess.
--- NOTE | 2018-03-03 13:21 | NUR ---
Episode of emesis x1 liquids, cream color 30ml, c/o nausea. Zofran 4mg IV prn given, will reassess.
--- NOTE | 2018-03-03 14:17 | NUR ---
MS RN NOTE WALKED INTO PATIENT ROOM FOR ROUNDING WHEN I NOTICED COFFEE AT THE BEDSIDE. INFORMED PATIENT SHE IS ON CLEAR LIQUID DIET. PATIENT AT THIS TIME DOES NOT WANT ME TO REMOVE COFFEE FROM ROOM. WILL INFORM
[2018-03-03 16:00] VITALS: BP 127/56
[2018-03-03] MEDS ORDERED: LEVOFLOXACIN (500MG) 500 MG TABLET PO SCH (16:00)
[2018-03-03 16:12] VITALS: BP 127/56
--- NOTE | 2018-03-03 16:39 | NUR ---
MS RN NOTE PATIENT SITTING UPRIGHT IN BED AT THIS TIME NOTED WITH FACIAL GRIMACING GRASPING RIGHT SIDE/BACK 08/28. NORCO 10/325 MG PO PRN GIVEN. DENIES NAUSEA OR VOMITING AT THIS TIME.
--- NOTE | 2018-03-03 16:41 | NUR ---
MS RN NOTE BS-228 30 UNIT SCHEDULED INSULIN GIVEN AND PRN INSULIN GIVEN. FOOD AT BEDSIDE NO S/S OF HYPOGLYCEMIA/HYPERGLYCEMIA NOTED. WILL MONITOR
[2018-03-03] MEDS: AMLODIPINE BESYLATE 5 MG TABLET PO SCH (17:17)
--- NOTE | 2018-03-03 18:19 | NUR ---
MS RN CLOSING NOTE PATIENT RESTING COMFORTABLY AT THIS TIME. NO FACIAL GRIMACING NOTED FOR PAIN. NO SOB OR DISTRESS NOTED ON 2L/MIN VIA NASAL CANNULA. CALL LIGHT WITHIN REACH AT ALL TIMES, ALL NEEDS MET. IV INTACT AND PATENT NO REDNESS OR SWELLING NOTED, FLUSHES WELL. ALL DUE MEDICATIONS GIVEN ORDERED BY MD. BLOOD SUGAR CHECKED AND INSULIN GIVEN PER PROTOCOL. ALERT AND ORIENTED x4, ABLE TO COMMUNICATE NEEDS. NPO AT MIDNIGHT FOR EGD/COLONOSCOPY 03/04/18 CONSENTS PLACED IN CHART. WILL ENDORSE TO ARTILLERY OR NAVAL GUNFIRE OBSERVER NURSE FOR FRITZ
[2018-03-03] MEDS ORDERED: CALAMINE 118 ML BOTTLE TP PRN (18:30)
--- NOTE | 2018-03-03 19:30 | NUR ---
RECEIVED PATIENT IN BED ASLEEP, EASIL AROUSABLE., AO X 3, ABLE TO MAKE NEEDS KNOWN. NO ACUTE DISTRESS NOTED. MONITORED FOR PAIN. IV SITE PATENT, INTACT; FLUSHED. SAFETY REMINDERS GIVEN. ON LOW BED WITH BILATERAL UPPER SIDE RAIL UP. CALL BOWERS WITHIN EASY REACH. WILL CONTINUE TO MONITOR.
[2018-03-03 20:00] VITALS: BP 104/63
[2018-03-03] MEDS: MONTELUKAST SODIUM (10MG) 10 MG TABLET PO SCH (21:29)
[2018-03-03] MEDS: ATORVASTATIN 40 MG TABLET PO SCH (21:29)
[2018-03-03] MEDS: TRAZODONE 50 MG TABLET PO SCH (21:29)
[2018-03-04] MEDS: NA PHOS,M-B/NA PHOS,DI-BA 1 EA ENEMA RC PRN (05:55)
--- NOTE | 2018-03-04 06:14 | NUR ---
PATIENT ASLEEP, EASILY AROUSABLE. RESPIRATIONS EVEN. NO SIGNS OF PAIN NOTED. NO SYMPTOMS OF HYPER/HYPOGLYCEMIA. PATIENT FINISHED GOLYTELY. PATIENT NPO AT THIS TIME. STOOL STILL NOT CLEAR. NEEDS ATTENDED. KEPT CLEAN, DRY, AND COMFORTABLE. SAFETY PRECAUTIONS AND COMFORT MEASURES IN PLACE. WILL GIVE REPORT TO DAY SHIFT FOR CONTINUITY OF CARE.
[2018-03-04 07:13] LABS: BASOPHILS % (AUTO) 0.2 % (0.0-2.0); EOSINOPHILS % (AUTO) 0.5 % (0.0-6.0); HEMATOCRIT 42 % (33-45); HEMOGLOBIN 13.8 g/dL (11.5-14.8); LYMPHOCYTES # (AUTO) 1.2 /CMM (0.8-4.8); LYMPHOCYTES % (AUTO) 10.1 % (20.0-44.0); MEAN CORPUSCULAR HGB CONC 33 g/dl (31.0-36.0); MEAN CORPUSCULAR VOLUME 90 fL (82-100); MONOCYTES # (AUTO) 0.7 /CMM (0.1-1.30); MONOCYTES % (AUTO) 5.7 % (2.0-12.0); NEUTROPHILS % (AUTO) 83.5 % (43.0-81.0); PLATELET COUNT (AUTO) 256 /CMM (150-450); RED BLOOD CELL COUNT(AUTO) 4.68 MIL/uL (4.0-5.2)
[2018-03-04 07:22] LABS: CALCIUM, SERUM 8.7 mg/dL (8.5-10.1); CREATININE 0.6 mg/dL (0.6-1.3); MAGNESIUM 1.8 mg/dL (1.8-2.4); POTASSIUM 3.8 mmol/L (3.5-5.1)
--- NOTE | 2018-03-04 07:25 | NUR ---
MS/RN OPENING NOTE THE PATIENT IS RECEIVED SLEEPING IN BED. RESPONSIVE TO VERBAL AND TACTILE STIMULI. ALERT AND ORIENTED X4. DENIES SOB. RESPIRATION REGULAR AND UNLABORED. DENIES PAIN. THE PATIENT IN NO APPARENT DISTRESS. PATIENT NPO SINCE MIDNIGHT. RIGHT HAND G 24 PATENT AND SALINE LOCKED. BED LOW AND LOCKED. SIDE RAILS UP X3. CALL LIGHT WITHIN REACH. WILL CONTINUE TO MONITOR.
[2018-03-04] MEDS: BLOOD SUGAR DIAGNOSTIC 1 EACH STRIP IN SCH ×2 (07:29→12:00)
--- NOTE | 2018-03-04 08:01 | NUR ---
MS/RN NOTE THE PATIENT IS TAKEN TO OR FOR COLONOSCOPY. PATIENT IN STABLE CONDITION.
[2018-03-04 08:07] VITALS: BP 105/87
[2018-03-04] MEDS: METFORMIN 500 MG TABLET PO SCH (09:00)
[2018-03-04] MEDS: PANTOPRAZOLE 40 MG VIAL IV SCH (09:00)
[2018-03-04] MEDS: INSULIN GLARGINE, 100 UNIT/ML CARTRIDGE SQ SCH (09:00)
--- NOTE | 2018-03-04 10:01 | NUR ---
MS/RN NOTE THE PATIENT IS BACK FROM OR. IN STABLE CONDITION.
[2018-03-04 10:02] VITALS: BP 131/83
--- NOTE | 2018-03-04 10:25 | NUR ---
MS/RN NOTE PER DR FONTENOT WRITTEN ORDER DIET TOLERATED. PER DR FONTENOT START WITH FULL LIQUID. WILL ADVANCE TOLERATED.
[2018-03-04] MEDS: HYDROMORPHONE INJ 2 MG/ML DISP.SYRIN IV PRN (10:56)
--- NOTE | 2018-03-04 10:57 | NUR ---
MS/RN NOTE THE PATIENT COMPLAINS OF ABDOMINAL PAIN 09/28. ABDOMEN SOFT AND NON-DISTENDED. DILAUDID 0.5 MG IV PUSH IS GIVEN. WILL CONTINUE TO MONITOR.
[2018-03-04] MEDS: LISINOPRIL (5MG) 5 MG TABLET PO SCH (11:02)
[2018-03-04] MEDS: FLUOXETINE HCL 20 MG CAPSULE PO SCH (11:02)
[2018-03-04] MEDS: ASPIRIN EC 81 MG TABLET.DR PO SCH (11:02)
[2018-03-04] MEDS: CYCLOBENZAPRINE 10 MG TABLET PO SCH ×2 (11:02→13:00)
[2018-03-04] MEDS: GABAPENTIN 300 MG CAPSULE PO SCH ×2 (11:02→13:00)
[2018-03-04] MEDS: FUROSEMIDE 40 MG TABLET PO SCH (11:03)
--- NOTE | 2018-03-04 11:09 | NUR ---
MS/RN NOTE LANTUS NOT ADMINISTERED DUE TO BLOOD SUGAR 106.
--- NOTE | 2018-03-04 11:11 | NUR ---
MS/RN NOTE METFORMIN 1000 MG NOT ADMINISTERED DUE TO MIS ORDER FOR HOLD METFORMIN.
--- NOTE | 2018-03-04 11:26 | NUR ---
MS/RN NOTE THE PATIENT RATED ABDOMINAL PAIN 0/10.
[2018-03-04] MEDS ORDERED: PANT40TA2 PO (11:56)
[2018-03-04] MEDS ORDERED: LEVO500T90 PO (11:56)
[2018-03-04] MEDS ORDERED: HYDR-4384 PO (11:56)
--- NOTE | 2018-03-04 14:16 | NUR ---
MS/RN NOTE THE PATIENT ALERT AND ORIENTED X4. RESPIRATION REGULAR AND UNLABORED. DENIES SOB. RESPIRATION IN ROOM AIR AT 96%. DENIES PAIN. ABDOMEN SOFT AND NON-DISTENDED. THE PATIENT TOLERATED DIET WELL. DISCHARGE INSTRUCTION GIVEN TO THE PATIENT AND SHE VERBALIZED UNDERSTANDING. THE PATIENT LEFT THE HOSPITAL IN STABLE CONDITION WITH HIS CAREGIVER.
[2018-03-04 15:55] VITALS: BP 133/72
== END 2018-03-04 14:00 | disposition home or self-care (01) | DRG 241 ==
LOC: ER 20:29 → MEDSG2 02-28 02:51
PROVIDERS: ADMIT Student in an Organized Health Care Education/Training Program; ATTEND Student in an Organized Health Care Education/Training Program
PROC: 0DB78ZX Excision of Stomach, Pylorus, Via Natural or Artificial Opening Endoscopic, Diagnostic (ICD-10-PCS; principal; 2018-03-04)
PROC: 0DJD8ZZ Inspection of Lower Intestinal Tract, Via Natural or Artificial Opening Endoscopic (ICD-10-PCS; principal; 2018-03-04)
DX: K29.70 Gastritis, unspecified, without bleeding (principal); I11.0 Hypertensive heart disease with heart failure; E11.65 Type 2 diabetes mellitus with hyperglycemia; E44.1 Mild protein-calorie malnutrition; E66.01 Morbid (severe) obesity due to excess calories; I50.32 Chronic diastolic (congestive) heart failure; Z99.81 Dependence on supplemental oxygen; D25.9 Leiomyoma of uterus, unspecified; E78.5 Hyperlipidemia, unspecified; F41.9 Anxiety disorder, unspecified; I25.10 Atherosclerotic heart disease of native coronary artery without angina pectoris; I25.2 Old myocardial infarction; J44.9 Chronic obstructive pulmonary disease, unspecified; D35.01 Benign neoplasm of right adrenal gland; N28.1 Cyst of kidney, acquired; K57.30 Diverticulosis of large intestine without perforation or abscess without bleeding; E88.09 Other disorders of plasma-protein metabolism, not elsewhere classified; Z68.37 Body mass index [BMI] 37.0-37.9, adult; Z79.4 Long term (current) use of insulin; K44.9 Diaphragmatic hernia without obstruction or gangrene; C79.51 Secondary malignant neoplasm of bone; R91.1 Solitary pulmonary nodule; M48.8X4 Other specified spondylopathies, thoracic region; K20.9 Esophagitis, unspecified; C80.1 Malignant (primary) neoplasm, unspecified; Z79.84 Long term (current) use of oral hypoglycemic drugs
CPT/HCPCS: 36415; 71045-TC; 80048-TC; 80061-TC; 80076-TC; 81000-TC; 82105; 82378; 82945-TC; 82947-TC; 82962-TC; 83690-TC; 83735-TC; 83880; 84100-TC; 84443-TC; 84484-TC; 85025-TC; 86301; 86304; 87081-TC; 87086-TC; 87186-TC; 88305-TC; 88313-TC; 88342; C9113; G0378; J1170; J1815; J2405; J2704; J3475; J3490; J7030; J7050; Q9967

== ENCOUNTER 2018-06-14 19:43 | Inpatient (IN) | payer OTHER ==
[~2018-06-14] VITALS: Ht 154.9 cm; Wt 88.0 kg
[~2018-06-14 19:43] MED LIST changes: +HYDR-4384 PO; +LEVO500T90 PO; +PANT40TA2 PO
[2018-06-14] MEDS ORDERED: FAMOTIDINE/PF INJ 20 MG/2 ML VIAL IV ONE ×2 (19:56→20:00)
[2018-06-14] MEDS ORDERED: methylPREDNISolone SOD SUCC 125 MG/2ML VIAL ONE (19:56)
[2018-06-14] MEDS ORDERED: diphenhydrAMINE HCL 50 MG/ML VIAL ONE (19:56)
[2018-06-14] MEDS ORDERED: EPINEPHRINE (1:1000) 1 MG/ML AMPUL ONE (19:56)
[2018-06-14] MEDS ORDERED: methylPREDNISolone SOD SUCC 125 MG/2ML VIAL IV ONE (20:00)
[2018-06-14] MEDS ORDERED: diphenhydrAMINE HCL 50 MG/ML VIAL IV ONE (20:00)
[2018-06-14] MEDS ORDERED: EPINEPHRINE (1:1000) MDV 30 MG/30ML VIAL SUBCUT ONE (20:00)
[2018-06-14] MEDS ORDERED: ONDANSETRON HCL/PF 4 MG/2 ML VIAL ONE (20:28)
[2018-06-14] MEDS ORDERED: MORPHINE SULFATE INJ 4 MG/ML DISP.SYRIN ONE (20:28)
[2018-06-14 20:30] LABS: BASOPHILS % (AUTO) 0.3 % (0.0-2.0); HEMATOCRIT 48 % (33-45); LYMPHOCYTES # (AUTO) 3.5 /CMM (0.8-4.8); LYMPHOCYTES % (AUTO) 32.3 % (20.0-44.0); MEAN CORPUSCULAR HGB CONC 34 g/dl (31.0-36.0); MEAN CORPUSCULAR VOLUME 90 fL (82-100); MONOCYTES # (AUTO) 0.7 /CMM (0.1-1.30); MONOCYTES % (AUTO) 6.4 % (2.0-12.0); NEUTROPHILS # (AUTO) 6.5 /CMM (1.8-8.9); PLATELET COUNT (AUTO) 325 /CMM (150-450); WHITE BLOOD COUNT (AUTO) 10.9 K/uL (4.3-11.0)
[2018-06-14] MEDS ORDERED: ONDANSETRON HCL/PF 4 MG/2 ML VIAL IVP ONE (20:30)
[2018-06-14] MEDS ORDERED: MORPHINE SULFATE INJ 2 MG/ML DISP.SYRIN IV ONE (20:30)
[2018-06-14 20:48] LABS: CALCIUM, SERUM 8.8 mg/dL (8.5-10.1); CREATININE 0.8 mg/dL (0.6-1.3); POTASSIUM 3.4 mmol/L (3.5-5.1)
[2018-06-14] MEDS ORDERED: ACETAMINOPHEN 325 MG TABLET PO PRN (23:00)
[2018-06-14] MEDS ORDERED: TRAZODONE 50 MG TABLET PO PRN (23:00)
[2018-06-14] MEDS ORDERED: ONDANSETRON HCL/PF 4 MG/2 ML VIAL IVP PRN (23:00)
[2018-06-14] MEDS ORDERED: ALPRAZOLAM 0.5 MG TABLET PO PRN (23:00)
[2018-06-14] MEDS ORDERED: HYDROCODONE/APAP 10/325MG 1 EA TABLET PO PRN (23:00)
[2018-06-14 23:15] VITALS: BP 122/77
[2018-06-14] MEDS ORDERED: methylPREDNISolone SOD SUCC 125 MG/2ML VIAL IV SCH (23:15)
[2018-06-14] MEDS ORDERED: DEXTROSE 50%-WATER 50 ML DISP.SYRIN IV PRN (23:30)
[2018-06-15] MEDS: POTASSIUM CHLORIDE 20 MEQ POWDER PACKET PO SCH ×2 (00:19→08:16)
[2018-06-15 04:00] VITALS: BP 108/66
[2018-06-15 08:00] VITALS: BP 109/79
[2018-06-15] MEDS: BLOOD SUGAR DIAGNOSTIC 1 EACH STRIP IN SCH ×4 (08:06→22:23)
[2018-06-15] MEDS: INSULIN REGULAR, HUMAN 100 UNIT/ML 3 ML VIAL SQ PRN ×4 (08:06→22:23)
[2018-06-15] MEDS: INSULIN GLARGINE, 100 UNIT/ML CARTRIDGE SQ SCH ×2 (08:07→16:34)
[2018-06-15] MEDS: methylPREDNISolone SOD SUCC 125 MG/2ML VIAL IV SCH ×3 (08:12→16:26)
[2018-06-15] MEDS: PANTOPRAZOLE 40 MG TABLET.DR PO SCH (08:14)
[2018-06-15] MEDS: GABAPENTIN 300 MG CAPSULE PO SCH ×3 (08:15→16:26)
[2018-06-15] MEDS: MONTELUKAST SODIUM (10MG) 10 MG TABLET PO SCH (08:15)
[2018-06-15] MEDS: FLUOXETINE HCL 20 MG CAPSULE PO SCH (08:15)
[2018-06-15] MEDS: METFORMIN 500 MG TABLET PO SCH ×2 (08:16→16:26)
[2018-06-15] MEDS: CYCLOBENZAPRINE 10 MG TABLET PO SCH ×3 (08:16→16:26)
[2018-06-15] MEDS: ASPIRIN EC 81 MG TABLET.DR PO SCH (08:16)
[2018-06-15] MEDS: ISOSORBIDE MONONITRATE (30MG) 30 MG TAB.SR.24H PO SCH (09:00)
[2018-06-15] MEDS ORDERED: POTASSIUM CHLORIDE 20 MEQ TAB.PRT.SR PO SCH (09:00)
[2018-06-15] MEDS: FUROSEMIDE 40 MG TABLET PO SCH (09:00)
[2018-06-15 09:23] LABS: BASOPHILS % (AUTO) 0.1 % (0.0-2.0); HEMATOCRIT 45 % (33-45); HEMOGLOBIN 14.8 g/dL (11.5-14.8); LYMPHOCYTES # (AUTO) 0.8 /CMM (0.8-4.8); LYMPHOCYTES % (AUTO) 7.4 % (20.0-44.0); MEAN CORPUSCULAR HGB CONC 33 g/dl (31.0-36.0); MEAN CORPUSCULAR VOLUME 91 fL (82-100); MONOCYTES # (AUTO) 0.1 /CMM (0.1-1.30); MONOCYTES % (AUTO) 0.9 % (2.0-12.0); NEUTROPHILS # (AUTO) 9.9 /CMM (1.8-8.9); NEUTROPHILS % (AUTO) 91.6 % (43.0-81.0); PLATELET COUNT (AUTO) 276 /CMM (150-450); WHITE BLOOD COUNT (AUTO) 10.8 K/uL (4.3-11.0)
[2018-06-15] MEDS: MORPHINE SULFATE INJ 4 MG/ML DISP.SYRIN IV PRN ×3 (09:30→21:57)
[2018-06-15 09:38] LABS: CALCIUM, SERUM 8.8 mg/dL (8.5-10.1); CREATININE 0.8 mg/dL (0.6-1.3); MAGNESIUM 1.9 mg/dL (1.8-2.4); PHOSPHORUS 4.6 mg/dL (2.5-4.9)
[2018-06-15 09:49] LABS: POTASSIUM 4.6 mmol/L (3.5-5.1)
[2018-06-15] MEDS: ALBUTEROL FS 2.5 MG/3 ML VIAL.NEB NEB SCH ×3 (15:15→23:19)
[2018-06-15 16:00] VITALS: BP_SYST 105; BP_SYST 97; BP_DIAS 56; BP_DIAS 61
[2018-06-15] MEDS: AMLODIPINE BESYLATE 5 MG TABLET PO SCH (18:00)
[2018-06-15 20:00] VITALS: BP 121/61
[2018-06-15] MEDS ORDERED: ATORVASTATIN 40 MG TABLET PO SCH (22:00)
[2018-06-16] MEDS: MORPHINE SULFATE INJ 4 MG/ML DISP.SYRIN IV PRN ×4 (02:16→19:08)
[2018-06-16] MEDS: ALBUTEROL FS 2.5 MG/3 ML VIAL.NEB NEB SCH ×5 (03:30→19:21)
[2018-06-16 04:00] VITALS: BP 100/57
[2018-06-16 06:20] LABS: CALCIUM, SERUM 9.4 mg/dL (8.5-10.1); CREATININE 0.8 mg/dL (0.6-1.3); MAGNESIUM 1.9 mg/dL (1.8-2.4); PHOSPHORUS 3.9 mg/dL (2.5-4.9); POTASSIUM 4.4 mmol/L (3.5-5.1)
[2018-06-16 06:26] LABS: BASOPHILS % (AUTO) 0.1 % (0.0-2.0); HEMATOCRIT 39 % (33-45); HEMOGLOBIN 12.9 g/dL (11.5-14.8); LYMPHOCYTES # (AUTO) 1.8 /CMM (0.8-4.8); LYMPHOCYTES % (AUTO) 13.4 % (20.0-44.0); MEAN CORPUSCULAR HGB CONC 33 g/dl (31.0-36.0); MEAN CORPUSCULAR VOLUME 91 fL (82-100); MONOCYTES # (AUTO) 0.8 /CMM (0.1-1.30); MONOCYTES % (AUTO) 5.8 % (2.0-12.0); NEUTROPHILS % (AUTO) 80.7 % (43.0-81.0); PLATELET COUNT (AUTO) 266 /CMM (150-450); RED BLOOD CELL COUNT(AUTO) 4.31 MIL/uL (4.0-5.2); WHITE BLOOD COUNT (AUTO) 13.6 K/uL (4.3-11.0)
[2018-06-16 08:00] VITALS: BP 99/64
[2018-06-16] MEDS: BLOOD SUGAR DIAGNOSTIC 1 EACH STRIP IN SCH ×3 (08:01→16:55)
[2018-06-16] MEDS: INSULIN REGULAR, HUMAN 100 UNIT/ML 3 ML VIAL SQ PRN ×3 (08:06→16:59)
[2018-06-16] MEDS: INSULIN GLARGINE, 100 UNIT/ML CARTRIDGE SQ SCH ×2 (08:06→17:00)
[2018-06-16] MEDS: MONTELUKAST SODIUM (10MG) 10 MG TABLET PO SCH (08:08)
[2018-06-16] MEDS: methylPREDNISolone SOD SUCC 125 MG/2ML VIAL IV SCH ×3 (08:08→16:55)
[2018-06-16] MEDS: CYCLOBENZAPRINE 10 MG TABLET PO SCH ×3 (08:08→16:53)
[2018-06-16] MEDS: ASPIRIN EC 81 MG TABLET.DR PO SCH (08:08)
[2018-06-16] MEDS: FLUOXETINE HCL 20 MG CAPSULE PO SCH (08:08)
[2018-06-16] MEDS: GABAPENTIN 300 MG CAPSULE PO SCH ×3 (08:09→16:53)
[2018-06-16] MEDS: METFORMIN 500 MG TABLET PO SCH ×2 (08:09→16:53)
[2018-06-16] MEDS: PANTOPRAZOLE 40 MG TABLET.DR PO SCH (08:09)
[2018-06-16] MEDS: POTASSIUM CHLORIDE 20 MEQ POWDER PACKET PO SCH (08:12)
[2018-06-16] MEDS: FUROSEMIDE 40 MG TABLET PO SCH (09:00)
[2018-06-16] MEDS: ISOSORBIDE MONONITRATE (30MG) 30 MG TAB.SR.24H PO SCH (09:00)
[2018-06-16] MEDS ORDERED: NA PHOS,M-B/NA PHOS,DI-BA 1 EA ENEMA RC ONE (14:30)
[2018-06-16 16:00] VITALS: BP 118/69
[2018-06-16] MEDS: AMLODIPINE BESYLATE 5 MG TABLET PO SCH (18:00)
== END 2018-06-16 19:19 | disposition home or self-care (01) | DRG 811 ==
LOC: ER 19:47 → TELE-TD 22:23 → TELE1 23:18 → MEDSG1 06-15 09:48
PROVIDERS: ADMIT Nurse Practitioner Acute Care; ATTEND Hospitalist
DX: T78.3XXA Angioneurotic edema, initial encounter (principal); I11.0 Hypertensive heart disease with heart failure; I50.9 Heart failure, unspecified; E11.65 Type 2 diabetes mellitus with hyperglycemia; E66.01 Morbid (severe) obesity due to excess calories; G47.33 Obstructive sleep apnea (adult) (pediatric); Z68.36 Body mass index [BMI] 36.0-36.9, adult; E78.5 Hyperlipidemia, unspecified; F41.9 Anxiety disorder, unspecified; G89.4 Chronic pain syndrome; J44.9 Chronic obstructive pulmonary disease, unspecified; K59.00 Constipation, unspecified; I25.10 Atherosclerotic heart disease of native coronary artery without angina pectoris; I25.2 Old myocardial infarction; Z79.4 Long term (current) use of insulin; J98.11 Atelectasis; Z79.84 Long term (current) use of oral hypoglycemic drugs; T46.4X5A Adverse effect of angiotensin-converting-enzyme inhibitors, initial encounter; Y84.8 Other medical procedures as the cause of abnormal reaction of the patient, or of later complication, without mention of misadventure at the time of the procedure; Y82.8 Other medical devices associated with adverse incidents; Y92.009 Unspecified place in unspecified non-institutional (private) residence as the place of occurrence of the external cause; Z95.5 Presence of coronary angioplasty implant and graft; Z71.3 Dietary counseling and surveillance; Z79.891 Long term (current) use of opiate analgesic
CPT/HCPCS: 36415; 71045-TC; 80048-TC; 80061-TC; 82962-TC; 83735-TC; 84100-TC; 84484-TC; 85025-TC; 85730-TC; 87081-TC; G0378; J0171; J1200; J1815; J2270; J2405; J2930; J3490

== ENCOUNTER 2018-09-12 21:48 | Emergency (ER) | payer OTHER ==
[~2018-09-12] VITALS: Ht 154.9 cm; Wt 81.6 kg
[~2018-09-12 21:48] MED LIST changes: -HYDR-4384 PO; -LEVO500T90 PO; -LISI-607 PO
--- NOTE | 2018-09-12 21:55 | NUR ---
PT BIB S/P ARGUMENT WT [place] AND C/O SOB/ANXIETY AND TIGHTNESS OF CHEST. A/O X3. ON ROOM AIR WT 02 SAT 96%. PLACED ON COMMUNITY SERVICE TECHNICIAN. HOB AT 45 DEGREES. SAFETY PRECAUTION NOTED. AWAITING FOR MD WINTER.
--- NOTE | 2018-09-12 22:20 | NUR ---
SEEN AND EVALUATED BY HOSPICE CONSULTANT. AWAITING ORDERS.
[2018-09-12] MEDS ORDERED: ONDANSETRON HCL/PF 4 MG/2 ML VIAL IV ONE (22:30)
[2018-09-12] MEDS ORDERED: LORAZEPAM 1 MG TABLET PO ONE (22:30)
[2018-09-12] MEDS ORDERED: MORPHINE SULFATE INJ 2 MG/ML DISP.SYRIN IV ONE (22:30)
[2018-09-12 22:56] LABS: WHITE BLOOD COUNT (AUTO) 9.4 K/uL (4.3-11.0)
[2018-09-12 22:57] LABS: BASOPHILS # (AUTO) 0.1 /CMM (0.0-0.2); BASOPHILS % (AUTO) 0.9 % (0.0-2.0); EOSINOPHILS % (AUTO) 0.7 % (0.0-6.0); HEMATOCRIT 45 % (33-45); HEMOGLOBIN 15.3 g/dL (11.5-14.8); LYMPHOCYTES # (AUTO) 2.6 /CMM (0.8-4.8); LYMPHOCYTES % (AUTO) 27.8 % (20.0-44.0); MEAN CORPUSCULAR HGB CONC 34 g/dl (31.0-36.0); MEAN CORPUSCULAR VOLUME 91 fL (82-100); MONOCYTES # (AUTO) 0.7 /CMM (0.1-1.30); MONOCYTES % (AUTO) 7.2 % (2.0-12.0); NEUTROPHILS % (AUTO) 63.4 % (43.0-81.0); PLATELET COUNT (AUTO) 279 /CMM (150-450)
[2018-09-12] MEDS ORDERED: ONDANSETRON HCL/PF 4 MG/2 ML VIAL ONE (22:58)
[2018-09-12] MEDS ORDERED: LORAZEPAM 1 MG TABLET ONE (22:58)
[2018-09-12] MEDS ORDERED: MORPHINE SULFATE INJ 4 MG/ML DISP.SYRIN ONE (22:59)
[2018-09-12 23:11] LABS: CALCIUM, SERUM 8.8 mg/dL (8.5-10.1); CARBON DIOXIDE 23 mmol/L (21-32); CHLORIDE 102 mmol/L (98-107); CREATININE 1.1 mg/dL (0.6-1.3); POTASSIUM 3.7 mmol/L (3.5-5.1); SODIUM SERUM 137 mmol/L (136-145); UREA NITROGEN, BLOOD 13 mg/dL (7-18)
[2018-09-12 23:15] LABS: GLUCOSE 375 mg/dL (74-106)
[2018-09-12 23:22] LABS: BILIRUBIN,DIRECT 0.1 mg/dL (0.0-0.2); BILIRUBIN,TOTAL 0.2 mg/dL (0.2-1.0)
[2018-09-12 23:23] LABS: ALANINE AMINOTRANSFERASE 21 U/L (12-78); ALBUMIN 3.2 g/dL (3.4-5.0); ALKALINE PHOSPHATASE 147 U/L (46-116); ASPARTATE AMINOTRANSFERASE 12 U/L (15-37)
[2018-09-13] MEDS ORDERED: INSULIN REGULAR, HUMAN 100 UNIT/ML 10 ML VIAL SQ ONE (00:30)
[2018-09-13] MEDS ORDERED: INSULIN REGULAR, HUMAN 100 UNIT/ML 10 ML VIAL ONE (00:33)
--- NOTE | 2018-09-13 01:51 | NUR ---
RECHECKED BLOOD [id number]. NO FRITZ, REMAINED A/O X3. LAB DRAWN FOR REPEAT TROPONIN. AWAITING FOR RESULT AND MD FURTHER ORDERS.
--- NOTE | 2018-09-13 04:00 | NUR ---
Pt. asleep, easily arousable. No acute distress, no evidence of discomfort.
--- NOTE | 2018-09-13 06:00 | NUR ---
Pt went to restroom and voided. No acute distress, no c/o pain.
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
[2018-09-13 10:18] VITALS: BP 113/65
--- NOTE | 2018-09-13 10:18 | NUR ---
Patient discharged to home in stable condition. Written and verbal after care instructions given. Patient verbalizes understanding of instruction.
== END 2018-09-13 10:19 | disposition home or self-care (01) ==
LOC: ER 21:48
DX: E11.65 Type 2 diabetes mellitus with hyperglycemia (principal); F41.9 Anxiety disorder, unspecified; I25.2 Old myocardial infarction; I10 Essential (primary) hypertension; G62.9 Polyneuropathy, unspecified; G89.4 Chronic pain syndrome; E78.5 Hyperlipidemia, unspecified; E78.00 Pure hypercholesterolemia, unspecified; F17.200 Nicotine dependence, unspecified, uncomplicated; F32.9 Major depressive disorder, single episode, unspecified; Z79.4 Long term (current) use of insulin; Z79.82 Long term (current) use of aspirin; Z95.5 Presence of coronary angioplasty implant and graft
CPT/HCPCS: 36415 ×2; 71045; 80048; 80076; 82962 ×2; 84484 ×2; 85025; 93005 ×2; 96372; 96374; 96375; 99284; J1815; J2270; J2405

== ENCOUNTER 2018-11-25 03:49 | Inpatient (IN) | payer OTHER ==
[~2018-11-25] VITALS: Ht 154.9 cm; Wt 89.4 kg
--- NOTE | 2018-11-25 04:05 | NUR ---
TO BED 10 AA/OX4, C/C CHEST PAIN "SINCE YESTERDAY." MID STERANL PAIN, NON RADIATING, "PRICKING PAIN", 10/10 PAIN, STARTED WHEN I WAS SITTING DOWN. PT ALSO COMPLAINING OF "LOB SIDED VISION" AND HEADACHE. EQUAL FACIAL AND EQUAL CARPENTER WOODEN TANK ERECTING NOTED. SKIN PINK, WARM, DRY. MOVES ALL EXTREMITIES WELL. VSS. NAD. WILL CONTINUE TO MONITOR.
[2018-11-25] MEDS ORDERED: IV NS 0.9% 500 ML BAG IV ONE (04:30)
[2018-11-25] MEDS ORDERED: IOHEXOL-350 100 ML VIAL IV ONE ×3 (04:40→11:03)
[2018-11-25 04:43] LABS: BASOPHILS # (AUTO) 0.1 /CMM (0.0-0.2); BASOPHILS % (AUTO) 0.6 % (0.0-2.0); HEMATOCRIT 45 % (33-45); HEMOGLOBIN 15.3 g/dL (11.5-14.8); LYMPHOCYTES # (AUTO) 2.6 /CMM (0.8-4.8); LYMPHOCYTES % (AUTO) 27.6 % (20.0-44.0); MEAN CORPUSCULAR HGB CONC 34 g/dl (31.0-36.0); MEAN CORPUSCULAR VOLUME 87 fL (82-100); MONOCYTES # (AUTO) 0.6 /CMM (0.1-1.30); MONOCYTES % (AUTO) 6.5 % (2.0-12.0); NEUTROPHILS # (AUTO) 6.1 /CMM (1.8-8.9); NEUTROPHILS % (AUTO) 63.3 % (43.0-81.0); PLATELET COUNT (AUTO) 276 /CMM (150-450); RED BLOOD CELL COUNT(AUTO) 5.15 MIL/uL (4.0-5.2); WHITE BLOOD COUNT (AUTO) 9.6 K/uL (4.3-11.0)
--- NOTE | 2018-11-25 04:47 | NUR ---
RESTING COMFORTABLY. EASILY AROUSED. VSS. NAD.
[2018-11-25 05:00] LABS: CALCIUM, SERUM 8.8 mg/dL (8.5-10.1); CARBON DIOXIDE 25 mmol/L (21-32); CHLORIDE 103 mmol/L (98-107); CREATININE 0.7 mg/dL (0.6-1.3); POTASSIUM 3.5 mmol/L (3.5-5.1); SODIUM SERUM 138 mmol/L (136-145); UREA NITROGEN, BLOOD 14 mg/dL (7-18)
[2018-11-25 05:02] LABS: GLUCOSE 379 mg/dL (74-106)
--- NOTE | 2018-11-25 05:06 | NUR ---
RADIOLOGY AT BEDSIDE. Addendum: 11/25/18 at 0518 by [address]QUE BROUGHT TO CT
[2018-11-25 05:14] LABS: CHOLESTEROL 207 mg/dL (<200); HDL CHOLESTEROL 46 mg/dL (40-60); LDL 125 mg/dL (0-99); TRIGLYCERIDES 215 mg/dL (30-150)
--- NOTE | 2018-11-25 05:40 | NUR ---
TELE 545-2
[2018-11-25] MEDS ORDERED: MORPHINE SULFATE INJ 2 MG/ML DISP.SYRIN ONE (05:50)
[2018-11-25] MEDS ORDERED: ONDANSETRON HCL/PF 4 MG/2 ML VIAL ONE (05:50)
--- NOTE | 2018-11-25 05:53 | NUR ---
ER TALKING TO DR. PAZ REGARDING PT ADMISSION.
[2018-11-25] MEDS ORDERED: MORPHINE SULFATE INJ 2 MG/ML DISP.SYRIN IV ONE (06:00)
[2018-11-25] MEDS ORDERED: ONDANSETRON HCL/PF 4 MG/2 ML VIAL IV ONE (06:00)
--- NOTE | 2018-11-25 06:00 | NUR ---
DANIEL SKINNER TALKING TO BOOKER STEVENSONARDING PT ADMISSION.
--- NOTE | 2018-11-25 06:21 | NUR ---
REPORT GIVEN TO ABDULLAHI DICKEY.
[2018-11-25] MEDS ORDERED: DEXTROSE 50%-WATER 50 ML DISP.SYRIN IV PRN ×2 (06:30→13:00)
[2018-11-25] MEDS ORDERED: ASPIRIN 325 MG TABLET PO ONE (06:30)
[2018-11-25] MEDS ORDERED: MAG HYDROX/AL HYDROX/SIMETH 30 ML UDC PO PRN (06:30)
--- NOTE | 2018-11-25 06:34 | NUR ---
PT TRANSPORTED TO TELE UNIT WITH STABLE CONDITION. VSS. CASTILLO.
--- NOTE | 2018-11-25 06:40 | NUR ---
MS RN NOTE RECEIVED PATIENT VIA RNEY. WHEEL CHAIRS TO BED. A/O X4. TOLERATING ROOM AIR. RESPIRATIONS EVEN AND UNLABORED. NO SOB NOTED. EXTERNAL TELE MONITOR READ SR HR 76. NO APPARENT DISTRESS. VS STABLE AT THIS TIME. IV ACCESS IN L WRIST PATENT AND SALINE LOCKED. BED IS LOW AND LOCKED, HOB ELEVATED 2O DEGREES, SIDE RAILS UP X2. CALL LIGHT WITHIN REACH. PATIENT MADE COMFORTABLE, ROOM ORIENTATION GIVEN. WILL ENDORSE TO NEXT SHIFT.
[2018-11-25 07:10] VITALS: BP 134/86
--- NOTE | 2018-11-25 07:10 | NUR ---
RN NOTES Received patient in the bed Tele SR-80, no acute respiratory distress, patient was complaining of pain lower back, and upper chest 10/10 per pain scale. v/s taken bp 124/86, p-84, r-20, o2-97 room air, t-97.7, patient a/o x4, unable to open left eyes, and painful, face is symmetric, patient able to talk express self, able to swallow, elevate upper extremities, and right lower leg, but has weakness on left leg after fall ten years ago. patient using wheelchair at home, using bedside commode. skin intact, pulses +2 on bilateral lower legs, iv access on left and right FA intact, call light within to reach, safety precaution maintained all the time.
[2018-11-25 08:00] VITALS: BP 134/86
[2018-11-25] MEDS: BLOOD SUGAR DIAGNOSTIC 1 EACH STRIP IN SCH ×2 (08:28→12:39)
[2018-11-25] MEDS: ACETAMINOPHEN 325 MG TABLET PO PRN ×2 (08:29→13:50)
--- NOTE | 2018-11-25 08:29 | NUR ---
rn notes administered Tylenol 650 mg po prn for pain, and administered scheduled medication. bs-329 mg/dl coverage given, patient tolerated breakfast 100 % . call light within to reach. continued monitoring.
[2018-11-25] MEDS ORDERED: ASPIRIN EC 325 MG TABLET.DR PO SCH (09:00)
[2018-11-25] MEDS: HYDROCODONE/APAP 5/325MG 1 EACH TABLET PO PRN ×3 (09:03→21:58)
--- NOTE | 2018-11-25 09:03 | NUR ---
RN NOTES ADMINISTERED NARCO 5/325 MG PO PRN FOR GENERALIZED PAIN 10/10 PER PATIENT REQUEST, V/S TAKEN 134/86, P-87, R-20, CONTINUED MONITORING.
[2018-11-25] MEDS: INSULIN REGULAR, HUMAN 100 UNIT/ML 3 ML VIAL SQ PRN ×3 (09:06→17:38)
--- NOTE | 2018-11-25 10:00 | NUR ---
rn notes patient nut picker for CT angio heart at this time, patient sign concert form.
[2018-11-25] MEDS ORDERED: METOPROLOL TARTRATE INJ 5 MG/5 ML AMPUL ONE ×3 (10:22→11:23)
[2018-11-25] MEDS ORDERED: NITROGLYCERIN 0.4 MG/TAB BOTTLE ONE (10:22)
[2018-11-25] MEDS: METOPROLOL TARTRATE INJ 5 MG/5 ML AMPUL IVP PRN ×7 (10:26→11:26)
[2018-11-25] MEDS ORDERED: NITROGLYCERIN 0.4 MG/TAB BOTTLE SL ONE (10:30)
--- NOTE | 2018-11-25 12:00 | NUR ---
RN NOTES PATIENT BACK FROM CT AT THIS TIME, BS-285 MG/DL, COVERAGE GIVEN, ALSO ADMINISTERED SCHEDULED MEDICATION BP 160/100, P-60. PATIENT TOLERATED LUNCH WELL. OT WITH THE PATIENT AT THIS TIME, PATIENT USE BATHROOM WITH ASSIST. SEEN HOSPITALIST FERDINAND ALLEN. PATIENT WILL FOLLOW PAIN MANAGEMENT MD.
[2018-11-25] MEDS: METOPROLOL TARTRATE 50 MG TABLET PO SCH ×3 (12:47→23:12)
[2018-11-25] MEDS ORDERED: ALPRAZOLAM 0.5 MG TABLET PO PRN (13:00)
[2018-11-25] MEDS: GABAPENTIN 300 MG CAPSULE PO SCH ×2 (13:38→17:18)
[2018-11-25] MEDS: ONDANSETRON HCL/PF 4 MG/2 ML VIAL IV PRN ×2 (13:39→21:59)
[2018-11-25] MEDS: CYCLOBENZAPRINE 10 MG TABLET PO SCH ×2 (13:39→17:19)
--- NOTE | 2018-11-25 13:39 | NUR ---
RN NOTES ADMINISTERED ZOFRAN 4 MG/ML IV PUSH FOR NAUSEA, AND VOMITING, ALSO ADMINISTERED SCHEDULED MEDICATION. CONTINUED MONITORING.
--- NOTE | 2018-11-25 13:50 | NUR ---
RN NOTES ADMINISTERED TYLENOL 650MG PO PRN FOR HEADACHE, AND LEFT EYE PAIN 8/10, APPLIED PATCH ON LEFT EYE PER NEUROLOGIST ORDER.
--- NOTE | 2018-11-25 15:24 | NUR ---
rn notes administered narco 5/325 mg po prn for generalized pain 09/28 per patient request, v/s taken bp-130/80, p-66. family next to the bed, call light within to reach. patient turn and reposition self in the bed.
[2018-11-25 16:00] VITALS: BP 133/96
[2018-11-25] MEDS: AMLODIPINE BESYLATE 5 MG TABLET PO SCH (17:19)
[2018-11-25] MEDS: BLOOD SUGAR DIAGNOSTIC 1 EACH STRIP VI SCH ×2 (17:19→22:17)
[2018-11-25] MEDS: INSULIN GLARGINE, 100 UNIT/ML CARTRIDGE SQ SCH (17:33)
--- NOTE | 2018-11-25 18:30 | NUR ---
RN NOTES BS-351 COVERAGE GIVEN, ALSO ADMINISTERED SCHEDULED MEDICATION. V/S STABLE. PATIENT TOLERATED DINNER WELL. FAMILY NEXT TO THE BED, CALL LIGHT WITHIN TO REACH. SAFETY PRECAUTION MAINTAINED ALL THE TIME.ENDORSED ONCOMING NURSE FOLLOW PLAN OF CARE.
--- NOTE | 2018-11-25 19:30 | NUR ---
FRICKERTRON CHECKER NOTE RECEIVED PATIENT IN BED. A/O X4. OXYGEN AT 3L/MIN VIA NASAL CANNULA. RESPIRATIONS ARE EVEN AND UNLABORED. SOB NOTED WHEN TALKING. DENIES PAIN AT THIS TIME. EXTERNAL TELE MONITOR READS, SR HR 68. NO APPARENT DISTRESS AT THIS TIME. IV ACCESS IN LFA #18 PATENT AND SALINE LOCKED. BED IS LOW AND LOCKED, HOB ELEVATED IN HIGH FOWLERS POSITION, SIDE RAILS UP X2. CALL LIGHT WITHIN REACH, FAMILY AT THE BEDSIDE. WILL CONTINUE TO MONITOR.
[2018-11-25 20:00] VITALS: BP 141/96
--- NOTE | 2018-11-25 20:30 | NUR ---
COOK MESS NOTE GAVE REPORT TO CHAREBL FERNANDO FOR FRTIZ. PATIENT IS STABLE AT THIS TIME. NO APPARENT DISTRESS NOTED.
[2018-11-25] MEDS: ATORVASTATIN 40 MG TABLET PO SCH (21:58)
[2018-11-25] MEDS: *INSULIN REGULAR(HUMULIN R)HUM 100 UNIT/ML VIAL SQ PRN (22:16)
[2018-11-25] MEDS: TRAZODONE 50 MG TABLET PO SCH (22:42)
--- NOTE | 2018-11-25 23:00 | NUR ---
HS BS 445, 10 UNITS GIVEN AND DECREASED TO 403. BOOKER DIAS MADE AWARE WITH NO NEW ORDERS. WILL CONTINUE TO MONITOR.
[2018-11-26] VITALS: BP 133/85
[2018-11-26 04:00] VITALS: BP 108/63
[2018-11-26] MEDS: METOPROLOL TARTRATE 50 MG TABLET PO SCH ×3 (06:00→17:01)
[2018-11-26] MEDS: INSULIN REGULAR, HUMAN 100 UNIT/ML 3 ML VIAL SQ PRN ×3 (06:11→16:55)
[2018-11-26] MEDS: INSULIN GLARGINE, 100 UNIT/ML CARTRIDGE SQ SCH ×2 (06:14→16:53)
[2018-11-26] MEDS: BLOOD SUGAR DIAGNOSTIC 1 EACH STRIP VI SCH ×4 (06:33→22:05)
[2018-11-26 06:50] LABS: BASOPHILS % (AUTO) 0.5 % (0.0-2.0); EOSINOPHILS % (AUTO) 1.9 % (0.0-6.0); HEMATOCRIT 41 % (33-45); HEMOGLOBIN 13.8 g/dL (11.5-14.8); LYMPHOCYTES # (AUTO) 2.9 /CMM (0.8-4.8); LYMPHOCYTES % (AUTO) 31.7 % (20.0-44.0); MEAN CORPUSCULAR HGB CONC 34 g/dl (31.0-36.0); MEAN CORPUSCULAR VOLUME 89 fL (82-100); MONOCYTES # (AUTO) 0.6 /CMM (0.1-1.30); NEUTROPHILS # (AUTO) 5.5 /CMM (1.8-8.9); NEUTROPHILS % (AUTO) 59.9 % (43.0-81.0); PLATELET COUNT (AUTO) 260 /CMM (150-450); RED BLOOD CELL COUNT(AUTO) 4.66 MIL/uL (4.0-5.2); WHITE BLOOD COUNT (AUTO) 9.2 K/uL (4.3-11.0)
--- NOTE | 2018-11-26 07:05 | NUR ---
CASE PACKER AND SEALER NOTES PATIENT ASLEEP IN BED WITH NO DISTRESS NOTED. CALL LIGHT WITHIN REACH. ALL DUE MEDS GIVEN ORDERED WITH NO ASE NOTED. NO FURTHER C/O PAIN OR DISCOMFORT. PERIPHERAL LINE INTACT AND PATENT. BED IN LOW LOCK SETTING. ROOM FREE OF CLUTTER AND BELONGINGS KEPT NEAR BEDSIDE. WILL CONTINUE TO MONITOR
[2018-11-26 07:15] LABS: CALCIUM, SERUM 8.9 mg/dL (8.5-10.1); CREATININE 0.8 mg/dL (0.6-1.3); MAGNESIUM 1.7 mg/dL (1.8-2.4); PHOSPHORUS 5.1 mg/dL (2.5-4.9); POTASSIUM 3.7 mmol/L (3.5-5.1)
[2018-11-26 07:18] LABS: THYROID STIMULATING HORMONE 1.581 uIU/mL (0.358-3.74)
--- NOTE | 2018-11-26 07:20 | NUR ---
CRUSHER LOADER EQUIPMENT OPERATOR OPENING NOTES RECEIVED PT LYING ON BED,ALERT/ORIENTED X3 WITH SLEEPY MOOD.ON TELE HR IS 71 WITH NSR.ON 4LPM O2 VIA NC CONTINUOUSLY.NO SOB AND ACUTE DISTRESS NOTED.AMBULATE WITH ASSISTANCE WITH ONE PERSON ASSISTANCE.IV LINE IS ON LEFT FA G18,SL.SITE IS CLEAN,DRY AND INTACT.NO INFILTRATION NOTED.SAFETY IS MAINTAINED AT ALL TIMES.BED IS IN LOW POSITION AND LOCKED.CALL LIGHT IS WITHIN REACH.WILL CONTINUE TO MONITOR THE PT CLOSELY.
[2018-11-26 08:00] VITALS: BP 100/57
[2018-11-26] MEDS ORDERED: ASPIRIN 81 MG TAB.CHEW PO SCH (09:00)
[2018-11-26] MEDS: PANTOPRAZOLE 40 MG TABLET.DR PO SCH (09:31)
[2018-11-26] MEDS: FLUOXETINE HCL 20 MG CAPSULE PO SCH (09:33)
[2018-11-26] MEDS: GABAPENTIN 300 MG CAPSULE PO SCH ×3 (09:34→16:44)
[2018-11-26] MEDS: FUROSEMIDE 40 MG TABLET PO SCH (09:34)
[2018-11-26] MEDS: CYCLOBENZAPRINE 10 MG TABLET PO SCH ×3 (09:34→16:44)
[2018-11-26] MEDS: MONTELUKAST SODIUM (10MG) 10 MG TABLET PO SCH (09:34)
[2018-11-26] MEDS: POTASSIUM CHLORIDE 10 MEQ TABLET.SA PO SCH (09:34)
[2018-11-26] MEDS: NICOTINE PATCH (14MG) 14 MG PATCH.TD24 TD SCH (09:34)
[2018-11-26] MEDS: ASPIRIN EC 81 MG TABLET.DR PO SCH (09:35)
[2018-11-26] MEDS: Magnesium 1GM/D5W 100ML PREMIX 100 ML IV SCH ×2 (10:27→11:32)
[2018-11-26 16:00] VITALS: BP 110/74
[2018-11-26] MEDS: AMLODIPINE BESYLATE 5 MG TABLET PO SCH (17:01)
--- NOTE | 2018-11-26 18:33 | NUR ---
MS RN CLOSING NOTES PT IS LYING ON BED.ALERT/ORIENTED X3.CAN DO SELF CARE ACTIVITY WITH ONE PERSON ASSISTANCE.TOLERATING WELL ON 4LPM O2 VIA NC CONTINUOUSLY.NO SIGNIFICANT CHANGES NOTED IN THE SHIFT.VITAL SIGNS ARE STABLE.WILL ENDORSE TO BUTANE COMPRESSOR OPERATOR RN FOR FRITZ AND PENDING TO COLLECT URINE SAMPLE.
--- NOTE | 2018-11-26 19:55 | NUR ---
RN MS OPENING NOTES RECEIVED PT IN BED, AWAKE ALERT ORIENTED X4, BREATHING EVEN AND UNLABORED ON 2L NC. IN NO APPARENT PAIN OR DISCOMFORT AT THIS TIME, IV ACCESS ON THE L AC 18G SL. BED IN LOWEST LOCKED POSITION, CALL LIGHT WITHIN REACH AT ALL TIMES, WILL CONTINUE TO MONITOR FREQUENTLY.
[2018-11-26] MEDS: HYDROCODONE/APAP 5/325MG 1 EACH TABLET PO PRN (20:32)
[2018-11-26 20:41] VITALS: BP 111/70
[2018-11-26 21:00] VITALS: BP 111/70
[2018-11-26] MEDS: TRAZODONE 50 MG TABLET PO SCH (22:05)
[2018-11-26] MEDS: ATORVASTATIN 40 MG TABLET PO SCH (22:05)
[2018-11-26] MEDS: *INSULIN REGULAR(HUMULIN R)HUM 100 UNIT/ML VIAL SQ PRN (22:14)
[2018-11-26] MEDS ORDERED: METHOCARBAMOL (500MG) 500 MG TABLET PO PRN (23:30)
[2018-11-27] MEDS: INSULIN GLARGINE, 100 UNIT/ML CARTRIDGE SQ SCH ×2 (06:27→17:18)
[2018-11-27] MEDS: METOPROLOL TARTRATE 50 MG TABLET PO SCH ×4 (06:29→17:23)
[2018-11-27] MEDS: INSULIN REGULAR, HUMAN 100 UNIT/ML 3 ML VIAL SQ PRN ×3 (06:29→17:16)
[2018-11-27] MEDS: BLOOD SUGAR DIAGNOSTIC 1 EACH STRIP VI SCH ×4 (06:34→21:30)
--- NOTE | 2018-11-27 06:42 | NUR ---
RN MS CLOSING NOTES PT REMAINS IN BED, AWAKE ALERT ORIENTED X4, BREATHING EVEN AND UNLABORED ON 2L NC. IN NO APPARENT PAIN OR DISCOMFORT AT THIS TIME, EYE PATCH DRESSING CHANGED. IV ACCESS ON THE L WRIST 20G. BED IN LOWEST LOCKED POSITION, CALL LIGHT WITHIN REACH AT ALL TIMES, WILL ENDORSE TO DAY NURSE FOR FRITZ
[2018-11-27 07:18] LABS: CALCIUM, SERUM 8.4 mg/dL (8.5-10.1); CREATININE 0.6 mg/dL (0.6-1.3); MAGNESIUM 1.7 mg/dL (1.8-2.4); POTASSIUM 3.7 mmol/L (3.5-5.1)
[2018-11-27 07:30] VITALS: BP 151/84
--- NOTE | 2018-11-27 07:31 | NUR ---
MS RN OPENING NOTE PATIENT IN BED RESTING COMFORTABLY. PATIENT IN NO ACUTE DISTRESS. NO SOB NOTED. PATIENT BREATHING IS EVEN AND UNLABORED. PATIENT IN NO PAIN AT THIS TIME. NO FACIAL GRIMACING NOTED. SAFETY PRECAUTIONS IN PLACE. PATIENT BED IS LOCKED AND IN LOWEST POSITION. CALL LIGHT WITHIN REACH. WILL CONTINUE TO MONITOR.
[2018-11-27] MEDS: NICOTINE PATCH (14MG) 14 MG PATCH.TD24 TD SCH (09:21)
[2018-11-27] MEDS: MONTELUKAST SODIUM (10MG) 10 MG TABLET PO SCH (09:22)
[2018-11-27] MEDS: FUROSEMIDE 40 MG TABLET PO SCH (09:22)
[2018-11-27] MEDS: CYCLOBENZAPRINE 10 MG TABLET PO SCH ×3 (09:22→16:56)
[2018-11-27] MEDS: ASPIRIN EC 81 MG TABLET.DR PO SCH (09:22)
[2018-11-27] MEDS: FLUOXETINE HCL 20 MG CAPSULE PO SCH (09:22)
[2018-11-27] MEDS: POTASSIUM CHLORIDE 10 MEQ TABLET.SA PO SCH (09:22)
[2018-11-27] MEDS: PANTOPRAZOLE 40 MG TABLET.DR PO SCH (09:22)
[2018-11-27] MEDS: GABAPENTIN 300 MG CAPSULE PO SCH ×3 (09:23→16:56)
[2018-11-27 10:00] VITALS: BP 151/84
[2018-11-27] MEDS: Magnesium 1GM/D5W 100ML PREMIX 100 ML IV SCH ×2 (11:55→13:03)
[2018-11-27] MEDS: HYDROCODONE/APAP 5/325MG 1 EACH TABLET PO PRN (12:05)
[2018-11-27 14:22] LABS: APPEARANCE,URINE Clear (CLEAR); BILIRUBIN,URINE Negative (NEGATIVE); BLOOD, URINE Small Ery/uL (NEGATIVE); COLOR,URINE Yellow (YELLOW); KETONES,URINE Negative (NEGATIVE); LEUKOCYTE ESTERASE ,URINE Negative (NEGATIVE); NITRITE, URINE Negative (NEGATIVE); PROTEIN,URINE Negative (NEGATIVE); UGLUCOSE >=1000 mg/dL (NEGATIVE); UROBILINOGEN,URINE 0.2 EU/dL (0.2)
[2018-11-27 14:23] LABS: BACTERIA,URINE Few /HPF (None Seen); SQUAMOUS EPITHELIAL CELL,UR Few /HPF (None Seen); WBC,URINE 0-2 /HPF (0-3)
[2018-11-27 16:08] VITALS: BP 117/77
[2018-11-27] MEDS: AMLODIPINE BESYLATE 5 MG TABLET PO SCH (17:23)
--- NOTE | 2018-11-27 17:31 | NUR ---
MS RN NOTE PATIENT BLOOD SUGAR IS 430, 15 UNITS OF INSULIN ADMINISTERED. PAGED Seakeeper FOR DR. GOODMAN WILL FOLLOW UP. ORDERED STAT GLUCOSE LAB. PATIENT IN NO ACUTE DISTRESS. NO SOB NOTED. WILL CONTINUE TO MONITOR. Addendum: 11/27/18 at 1758 by ОЛЕГ BUENO RN MS RN NOTE PATIENT BLOOD SUGAR IS 430, 15 UNITS OF REGULAR INSULIN ADMINISTERED. PAGED Seakeeper FOR DR. GOODMAN WILL FOLLOW UP. ORDERED STAT GLUCOSE LAB. PATIENT IN NO ACUTE DISTRESS. NO SOB NOTED. WILL CONTINUE TO MONITOR.
--- NOTE | 2018-11-27 17:43 | NUR ---
MS RN NOTE SPOKE WITH DR. GOODMAN, REGARDING BLOOD SUGAR 430. ORDERS TO GIVE ADDITIONAL 5 UNITS SHORT ACTING INSULIN. AND MORPHINE 2MG Q3H PRN FOR BACK PAIN. WILL CARRY OUT ORDERS. Addendum: 11/27/18 at 1758 by ОЛЕГ BUENO RN DR. GOODMAN ALSO INFORMED OF 30 UNITS LANTUS GIVEN.
[2018-11-27] MEDS ORDERED: INSULIN REGULAR, HUMAN 100 UNIT/ML 10 ML VIAL SQ ONE (18:00)
[2018-11-27] MEDS: MORPHINE SULFATE INJ 2 MG/ML DISP.SYRIN IV PRN (18:32)
--- NOTE | 2018-11-27 18:35 | NUR ---
MS RN NOTE CALLED FROM LAB REGARDING BLOOD GLUCOSE 478. RECHECKED BLOOD SUGAR 434. PAGED EPIC AND SPOKE WITH DR. GOODMAN REGARDING RECENT BLOOD GLUCOSE. DR. GOODMAN STATED TO "WAIT A LITTLE LONGER HE JUST ORDERED THE 5 UNITS EXTRA SHORT ACTING INSULIN AND RECHECK LATER IN ABOUT AN HOUR". DR. GOODMAN STATED NO NEW ORDERS TO BE INPUTED AT THIS TIME. PATIENT IN NO ACUTE DISTRESS. BP 116/70 HR 64 TEMPERATURE 97.9
--- NOTE | 2018-11-27 18:53 | NUR ---
MS RN CLOSING NOTE PATIENT IN BED RESTING COMFORTABLY. PATIENT BREATHING IS EVEN AND UNLABORED. PATIENT IN NO ACUTE DISTRESS. NO SOB NOTED. PATIENT BREATHING ON OXYGEN 4L NC SATURATING 98% SPO2. PATIENT NEEDS AND CONCERNS ADDRESSED. PATIENT KEPT CLEAN DRY AND COMFORTABLE THROUGHOUT SHIFT. EDUCATED PATIENT THROUGHOUT SHIFT WITH COMPLIANCE TO DIET REGIMENT AND DIABETES RELATION. WILL ENDORSE TO SENIOR INFORMATICA DEVELOPER NURSE ABOUT RECHECKING BLOOD SUGAR. PATIENT BED IS LOCKED AND IN LOWEST POSITION. CALL LIGHT WITHIN REACH. ENDORSED CARED TO PM SHIFT FOR FRITZ.
--- NOTE | 2018-11-27 19:59 | NUR ---
RN Notes Received patient awake, resting comfortably in bed, alert and oriented x3, on room air with good saturation. Pain on lower back at tolerable level at this time, 3/10. Denies lightheadedness, nausea and vomiting. 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 Blood sugar checked 360 mg/dl, patient and daughter at bedside instructed on diet regimen and verbalized understanding. Safety measures and fall precaution in place. Kept comfortable and attended. Will continue to monitor patient.
[2018-11-27 20:00] VITALS: BP 124/80
[2018-11-27] MEDS: ATORVASTATIN 40 MG TABLET PO SCH (21:30)
[2018-11-27] MEDS: TRAZODONE 50 MG TABLET PO SCH (21:30)
[2018-11-27] MEDS: *INSULIN REGULAR(HUMULIN R)HUM 100 UNIT/ML VIAL SQ PRN (21:33)
[2018-11-27 22:00] VITALS: BP 124/80
[2018-11-28] MEDS: METOPROLOL TARTRATE 50 MG TABLET PO SCH ×3 (00:05→11:49)
[2018-11-28] MEDS: MORPHINE SULFATE INJ 2 MG/ML DISP.SYRIN IV PRN ×3 (00:06→11:41)
--- NOTE | 2018-11-28 00:06 | NUR ---
RN Notes Patient complains of low back pain, 09/28. Morphine Sulfate 2mg given IVP, Will continue to monitor.
[2018-11-28] MEDS: BLOOD SUGAR DIAGNOSTIC 1 EACH STRIP VI SCH ×2 (06:30→11:49)
[2018-11-28] MEDS: INSULIN GLARGINE, 100 UNIT/ML CARTRIDGE SQ SCH (06:32)
[2018-11-28] MEDS: INSULIN REGULAR, HUMAN 100 UNIT/ML 3 ML VIAL SQ PRN ×2 (06:34→11:58)
--- NOTE | 2018-11-28 06:53 | NUR ---
RN Notes Patient sleep well overnight, vital signs stable, afebrile. Patient denies chest pain, sob, nausea and vomiting. Patient not compliant with diet, no signs of aspiration noted. Kept eye pad on left eye for patient comfort and safety for balance. Verbalizes lower back pain managed with morphine sulfate 2mg IVP with good relief. Safety measures and fall precaution observed. All needs attended. Will continue to monitor.
[2018-11-28 07:24] LABS: CALCIUM, SERUM 8.7 mg/dL (8.5-10.1); CREATININE 0.7 mg/dL (0.6-1.3); MAGNESIUM 1.7 mg/dL (1.8-2.4); POTASSIUM 3.7 mmol/L (3.5-5.1)
[2018-11-28 08:00] VITALS: BP 144/86
--- NOTE | 2018-11-28 08:00 | NUR ---
MS/RN NOTE THE PATIENT IS RECEIVED IN BED. PATIENT ALERT AND ORIENTED X3. IN ROOM AIR AND DENIES SOB. RESPIRATION REGULAR AND UNLABORED. COMPLAINS OF BACK PAIN 11/28. WILL ADMINISTER MEDICATION. RFA G 20 PATENT AND SALINE LOCKED. BED LOW AND LOCKED. SIDE RAILS UP X3. CALL LIGHT WITHIN REACH. WILL CONTINUE TO MONITOR.
[2018-11-28] MEDS: GABAPENTIN 300 MG CAPSULE PO SCH ×2 (08:05→12:00)
[2018-11-28] MEDS: FLUOXETINE HCL 20 MG CAPSULE PO SCH (08:05)
[2018-11-28] MEDS: MONTELUKAST SODIUM (10MG) 10 MG TABLET PO SCH (08:05)
[2018-11-28] MEDS: FUROSEMIDE 40 MG TABLET PO SCH (08:05)
[2018-11-28] MEDS: PANTOPRAZOLE 40 MG TABLET.DR PO SCH (08:05)
[2018-11-28] MEDS: NICOTINE PATCH (14MG) 14 MG PATCH.TD24 TD SCH (08:06)
[2018-11-28] MEDS: POTASSIUM CHLORIDE 10 MEQ TABLET.SA PO SCH (08:06)
[2018-11-28] MEDS: ASPIRIN EC 81 MG TABLET.DR PO SCH (08:06)
[2018-11-28] MEDS: CYCLOBENZAPRINE 10 MG TABLET PO SCH ×2 (08:06→12:00)
[2018-11-28] MEDS ORDERED: INSU100I30 SQ (11:01)
[2018-11-28] MEDS ORDERED: INSU100V3 IJ (11:01)
[2018-11-28 11:49] VITALS: BP 141/82
[2018-11-28] MEDS: Magnesium 1GM/D5W 100ML PREMIX 100 ML IV SCH ×2 (12:22→13:23)
--- NOTE | 2018-11-28 14:10 | NUR ---
MS/RN NOTE THE PATIENT IS ALERT AND ORIENTED X4. IN ROOM AIR AND SATURATION IS AT 95%. DENIES SOB. RESPIRATION REGULAR AND UNLABORED. COMPLAINS OF BACK PAIN 2/10 BUT REFUSES PAIN MEDICATION. THE PATIENT IS IN STABLE CONDITION. DISCHARGE EDUCATION PROVIDED TO THE PATIENT AND CAREGIVER. THEY BOTH VERBALIZED UNDERSTANDING. THE PATIENT LEAVING THE HOSPITAL ON CAREGIVER`D PRIVATE CARE AND IN STABLE CONDITION.
== END 2018-11-28 14:45 | disposition home or self-care (01) | DRG 48 ==
LOC: ER 03:51 → TELE 06:11 → MED 16:20 → TELE 16:20 → MED 11-26 10:40
PROVIDERS: ADMIT Registered Nurse; ATTEND Internal Medicine
DX: H49.02 Third [oculomotor] nerve palsy, left eye (principal); E44.0 Moderate protein-calorie malnutrition; R53.2 Functional quadriplegia; E11.40 Type 2 diabetes mellitus with diabetic neuropathy, unspecified; E66.01 Morbid (severe) obesity due to excess calories; E11.65 Type 2 diabetes mellitus with hyperglycemia; F41.9 Anxiety disorder, unspecified; J44.9 Chronic obstructive pulmonary disease, unspecified; T78.3XXA Angioneurotic edema, initial encounter; F17.210 Nicotine dependence, cigarettes, uncomplicated; I10 Essential (primary) hypertension; G89.29 Other chronic pain; I25.10 Atherosclerotic heart disease of native coronary artery without angina pectoris; F32.9 Major depressive disorder, single episode, unspecified; Z95.5 Presence of coronary angioplasty implant and graft; M54.16 Radiculopathy, lumbar region; Z68.37 Body mass index [BMI] 37.0-37.9, adult; V89.2XXS Person injured in unspecified motor-vehicle accident, traffic, sequela; Z79.84 Long term (current) use of oral hypoglycemic drugs; Z71.3 Dietary counseling and surveillance; G47.33 Obstructive sleep apnea (adult) (pediatric); Z79.82 Long term (current) use of aspirin; Z79.4 Long term (current) use of insulin
CPT/HCPCS: 36415; 70450-TC; 70496-TC; 70498-TC; 71045-TC; 75574; 80048-TC; 80061-TC; 80305; 81000-TC; 82947-TC; 82962-TC; 83735-TC; 84100-TC; 84443-TC; 84484-TC; 85025-TC; 85730-TC; 87081-TC; 92526; 92611-TC; 93307-TC; 97110-TC; 97112-TC; 97116-TC; 97530-TC; 97535-TC; A6403; G0378; J1815; J2270; J2405; J3475; J3490; J7040; Q9967

== ENCOUNTER 2019-04-14 11:32 | Emergency (ER) | payer OTHER ==
[~2019-04-14] VITALS: Ht 154.9 cm; Wt 92.5 kg
[~2019-04-14 11:32] MED LIST changes: +INSU100I30 SQ; +INSU100V3 IJ; -INSU100V7 SQ; -TRAZ-214 PO; +TRAZ-257 PO
--- NOTE | 2019-04-14 11:53 | NUR ---
BIBFAMILY, C/O LOWER ABDOMINAL PAIN, BURNING SENSATION WHEN VOIDING X2 WKS HEMATURIA THIS AM, RASH AROUND THE PERIAREA
--- NOTE | 2019-04-14 11:54 | NUR ---
FSBS 359
[2019-04-14 12:04] LABS: APPEARANCE,URINE Cloudy (CLEAR); BILIRUBIN,URINE Negative (NEGATIVE); BLOOD, URINE Large Ery/uL (NEGATIVE); COLOR,URINE Yellow (YELLOW); KETONES,URINE Negative (NEGATIVE); LEUKOCYTE ESTERASE ,URINE Small (NEGATIVE); NITRITE, URINE Positive (NEGATIVE); PROTEIN,URINE 30 mg/dl (NEGATIVE); UGLUCOSE >=1000 mg/dL (NEGATIVE); UROBILINOGEN,URINE 0.2 EU/dL (0.2)
--- NOTE | 2019-04-14 12:04 | NUR ---
URINE COLLECTED AND BROUGHT TO STAT LAB
[2019-04-14 12:12] LABS: BACTERIA,URINE Few /HPF (None Seen); RBC,URINE 51-80 /HPF (0-2); SQUAMOUS EPITHELIAL CELL,UR Few /HPF (None Seen); WBC,URINE TOO NUMEROUS TO COUN /HPF (0-3)
[2019-04-14] MEDS ORDERED: FLUCONAZOLE (100 MG) 100 MG TABLET PO ONE (12:30)
[2019-04-14] MEDS ORDERED: CEFTRIAXONE 1GM BAG (ER ONLY) 1 GM/50 ML PIGGYBACK IV ONE (12:30)
[2019-04-14] MEDS ORDERED: IV NS 0.9% 1,000 ML BAG IV ONE (12:30)
[2019-04-14] MEDS ORDERED: HYDROCODONE/APAP 5/325MG 1 EACH TABLET PO ONE (12:30)
[2019-04-14] MEDS ORDERED: HYDROCODONE/APAP 5/325MG 1 EACH TABLET ONE (12:44)
[2019-04-14] MEDS ORDERED: FLUCONAZOLE (100 MG) 100 MG TABLET ONE (12:44)
[2019-04-14 12:45] LABS: BASOPHILS # (AUTO) 0.1 /CMM (0.0-0.2); BASOPHILS % (AUTO) 0.5 % (0.0-2.0); EOSINOPHILS % (AUTO) 0.3 % (0.0-6.0); HEMATOCRIT 45 % (33-45); HEMOGLOBIN 14.8 g/dL (11.5-14.8); LYMPHOCYTES # (AUTO) 1.3 /CMM (0.8-4.8); LYMPHOCYTES % (AUTO) 8.3 % (20.0-44.0); MEAN CORPUSCULAR HGB CONC 33 g/dl (31.0-36.0); MEAN CORPUSCULAR VOLUME 88 fL (82-100); MONOCYTES # (AUTO) 0.8 /CMM (0.1-1.30); MONOCYTES % (AUTO) 5.3 % (2.0-12.0); NEUTROPHILS # (AUTO) 13.4 /CMM (1.8-8.9); NEUTROPHILS % (AUTO) 85.6 % (43.0-81.0); PLATELET COUNT (AUTO) 263 /CMM (150-450); WHITE BLOOD COUNT (AUTO) 15.6 K/uL (4.3-11.0)
[2019-04-14] MEDS ORDERED: CEFTRIAXONE 1 G in IV D5W 50 ML IV ONE ×4 (13:00)
[2019-04-14 13:04] LABS: CALCIUM, SERUM 9.2 mg/dL (8.5-10.1); CARBON DIOXIDE 26 mmol/L (21-32); CHLORIDE 100 mmol/L (98-107); CREATININE 0.9 mg/dL (0.6-1.3); GLUCOSE 353 mg/dL (74-106); POTASSIUM 3.4 mmol/L (3.5-5.1); SODIUM SERUM 137 mmol/L (136-145); UREA NITROGEN, BLOOD 13 mg/dL (7-18)
[2019-04-14 13:25] VITALS: BP 135/81
--- NOTE | 2019-04-14 13:46 | NUR ---
NURSING SUP CALLED WITH BED INFO FOR [facility]. PT WILL BE GOING TO ROOM 325. NUMBER FOR REPORT [phone].
--- NOTE | 2019-04-14 13:46 | NUR ---
CALLED [facility] FOR TRANSFER TO [facility]. ETA 1600.
--- NOTE | 2019-04-14 13:51 | NUR ---
CALLED [facility] FOR TRANSPORT TO [facility]. ETA 1445. TRIP # [id number].
--- NOTE | 2019-04-14 13:57 | NUR ---
placed call to [facility] [phone] to give report but per staff member Raphael, receiving RN unavailable at this time. left call back number
--- NOTE | 2019-04-14 14:20 | NUR ---
received call back from [facility] and gave report to ABDULLAHI Hill for lupe
--- NOTE | 2019-04-14 15:00 | NUR ---
Patient to transfer to [facility], patient aware and verbalized understanding. transer education provided. transportation present at unit. all belongings including wheelchair will be brought with patient. IV intact and in place. MD aware. no new skin breakdown noted on discharge. no acute distress. no c/o pain or discomfort
== END 2019-04-14 15:16 | disposition short-term general hospital (02) ==
LOC: ER 11:36
DX: A41.9 Sepsis, unspecified organism (principal); N39.0 Urinary tract infection, site not specified; E11.9 Type 2 diabetes mellitus without complications; I10 Essential (primary) hypertension; E78.5 Hyperlipidemia, unspecified; E78.00 Pure hypercholesterolemia, unspecified; F17.200 Nicotine dependence, unspecified, uncomplicated; Z95.5 Presence of coronary angioplasty implant and graft; Z79.4 Long term (current) use of insulin; Z79.899 Other long term (current) drug therapy; Z79.82 Long term (current) use of aspirin
CPT/HCPCS: 36415; 80048; 81001; 82962; 83605; 85025; 87040 ×2; 87086; 96365; 99285; J0696; J7030; J7060; 81000-TC; 87186-TC

== ENCOUNTER 2019-11-11 19:41 | Inpatient (IN) | payer OTHER ==
[~2019-11-11] VITALS: Ht 154.9 cm; Wt 92.5 kg
[~2019-11-11 19:41] MED LIST changes: -ASPI-1152 PO; +ASPI-1420 PO
--- NOTE | 2019-11-11 19:45 | NUR ---
BIB CG FOR C/O L SIDED CP 10 RADIATING TO THE L BACK X 1 DAY +SOB, +N/V; PT AAOX4, -SOB, NAD NOTED, PT ON MONITOR, VSS, PENDING ER PROVIDER MOY
[2019-11-11 20:09] LABS: BASOPHILS # (AUTO) 0.1 /CMM (0.0-0.2); BASOPHILS % (AUTO) 0.6 % (0.0-2.0); HEMATOCRIT 47 % (33-45); HEMOGLOBIN 15.5 g/dL (11.5-14.8); LYMPHOCYTES # (AUTO) 2.2 /CMM (0.8-4.8); MEAN CORPUSCULAR HGB CONC 33 g/dl (31.0-36.0); MEAN CORPUSCULAR VOLUME 89 fL (82-100); MONOCYTES # (AUTO) 0.7 /CMM (0.1-1.30); MONOCYTES % (AUTO) 5.8 % (2.0-12.0); NEUTROPHILS # (AUTO) 9.1 /CMM (1.8-8.9); NEUTROPHILS % (AUTO) 74.6 % (43.0-81.0); PLATELET COUNT (AUTO) 261 /CMM (150-450); RED BLOOD CELL COUNT(AUTO) 5.31 MIL/uL (4.0-5.2); WHITE BLOOD COUNT (AUTO) 12.2 K/uL (4.3-11.0)
[2019-11-11 20:18] LABS: CALCIUM, SERUM 9.1 mg/dL (8.5-10.1); CARBON DIOXIDE 26 mmol/L (21-32); CHLORIDE 100 mmol/L (98-107); CREATININE 1.1 mg/dL (0.6-1.3); GLUCOSE 316 mg/dL (74-106); POTASSIUM 3.5 mmol/L (3.5-5.1); SODIUM SERUM 136 mmol/L (136-145); UREA NITROGEN, BLOOD 18 mg/dL (7-18)
[2019-11-11] MEDS ORDERED: HYDROMORPHONE 1 MG/1 ML DISP.SYRIN ONE ×2 (20:21→22:55)
[2019-11-11] MEDS ORDERED: LABETALOL 20 MG/4 ML VIAL IV ONE ×2 (20:30→22:00)
[2019-11-11] MEDS ORDERED: HYDROMORPHONE 1 MG/1 ML DISP.SYRIN IV ONE ×2 (20:30→23:00)
[2019-11-11 20:49] LABS: ALBUMIN 3.1 g/dL (3.4-5.0); BILIRUBIN,DIRECT 0.1 mg/dL (0.0-0.2); BILIRUBIN,TOTAL 0.3 mg/dL (0.2-1.0); TOTAL PROTEIN, SERUM 7.4 g/dL (6.4-8.2)
[2019-11-11] MEDS ORDERED: LABETALOL HCL IV 100MG VIAL ONE (20:50)
--- NOTE | 2019-11-11 21:20 | NUR ---
per dr balderas hold off on trandate
[2019-11-11 21:21] LABS: APPEARANCE,URINE Clear (CLEAR); BILIRUBIN,URINE Negative (NEGATIVE); BLOOD, URINE Small Ery/uL (NEGATIVE); COLOR,URINE Yellow (YELLOW); KETONES,URINE Negative (NEGATIVE); LEUKOCYTE ESTERASE ,URINE Negative (NEGATIVE); NITRITE, URINE Negative (NEGATIVE); PROTEIN,URINE Trace mg/dl (NEGATIVE); UGLUCOSE >=1000 mg/dL (NEGATIVE); UROBILINOGEN,URINE 0.2 EU/dL (0.2)
[2019-11-11 21:30] LABS: BACTERIA,URINE Few /HPF (None Seen); SQUAMOUS EPITHELIAL CELL,UR Few /HPF (None Seen); WBC,URINE 0-2 /HPF (0-3)
--- NOTE | 2019-11-11 21:58 | NUR ---
CALLED [email or web address] AND THEY PAGED DR BREANNA Parekh NO ANSWER. WILL CALL BACK.
[2019-11-11] MEDS ORDERED: INSULIN REGULAR, HUMAN 100 UNIT/ML 10 ML VIAL ONE (21:59)
[2019-11-11] MEDS ORDERED: INSULIN REGULAR, HUMAN 100 UNIT/ML 10 ML VIAL SQ ONE (22:00)
[2019-11-11] MEDS ORDERED: ASPIRIN 325 MG TABLET PO ONE (22:00)
[2019-11-11] MEDS ORDERED: NITROGLYCERIN 0.4 MG/TAB BOTTLE SL ONE (22:00)
--- NOTE | 2019-11-11 22:41 | NUR ---
LAB CALLED REGARDING NEGATIEV COVID RESULT.
--- NOTE | 2019-11-11 22:44 | NUR ---
TELE [id number]
--- NOTE | 2019-11-11 22:50 | NUR ---
REPORT CALLED TO TELE AGATHA CRENSHAW. WILL TRANSPORT PT VIA ACLS PROTOCOL.
[2019-11-11] MEDS ORDERED: MAG HYDROX/AL HYDROX/SIMETH 30 ML UDC PO PRN (23:00)
[2019-11-11] MEDS ORDERED: HYDROCODONE/APAP 10/325MG TABLET PO PRN (23:00)
[2019-11-11] MEDS ORDERED: ONDANSETRON HCL/PF 4 MG/2 ML VIAL IVP PRN (23:00)
[2019-11-11] MEDS ORDERED: MAGNESIUM HYDROXIDE 30 ML UDC PO PRN (23:00)
[2019-11-11] MEDS ORDERED: Z GUARD REMEDY 2 OZ OINT TP PRN (23:00)
[2019-11-11] MEDS ORDERED: DEXTROSE 50%-WATER 50 ML DISP.SYRIN IV PRN (23:00)
[2019-11-11] MEDS ORDERED: ZOLPIDEM TARTRATE 5 MG TABLET PO PRN (23:00)
[2019-11-11] MEDS ORDERED: NITROGLYCERIN 0.4 MG/TAB BOTTLE SL PRN (23:00)
[2019-11-11] MEDS ORDERED: ALPRAZOLAM 0.5 MG TABLET PO PRN (23:00)
[2019-11-11] MEDS ORDERED: ACETAMINOPHEN 325 MG TABLET PO PRN (23:00)
[2019-11-11] MEDS ORDERED: HYDROCODONE/APAP 5/325MG TABLET PO PRN (23:00)
[2019-11-11 23:35] VITALS: BP 132/79
--- NOTE | 2019-11-11 23:40 | NUR ---
PT TRANSPORTED TO 3RD FLOOR
--- NOTE | 2019-11-11 23:40 | NUR ---
tele grinder gear initial notes admit pt from ER via radha accompanied by ER nurse and tech. DX of Chest pain. Pt is alert oriented X3 , Nepali/Sinhala speaking. No signs of any distress noted at this times. She's on O2@ at 2 liters via NC. According to the patient she's here before for Shingles but was cleared. skin warm and dry to touch , no signs of any skin breakdown. she able to ambulate but easily tired that's why she's using wheelchair. Tele applied and explained to her what the purpose of tele monitor. and pt understood well. re-oriented her how to use the call light system and at the same time i encourage her to use it if she needs some help or need the nurse. kept her warm and comfortable at all times. will continue monitoring.
[2019-11-12] MEDS: ENOXAPARIN SODIUM 40 MG/0.4 ML DISP.SYRIN SQ SCH ×2 (00:05→21:23)
[2019-11-12] MEDS: MORPHINE SULFATE INJ 2 MG/ML DISP.SYRIN IV PRN ×3 (03:01→21:24)
--- NOTE | 2019-11-12 03:05 | NUR ---
X RAY DEVELOPING MACHINE OPERATOR NOTE: PATIENT COMPLAINS OF BACK/CHEST PAIN 8/, MORPHINE 2MG IV GIVEN PER MD ORDER. WILL CONTINUE TO MONITOR.
--- NOTE | 2019-11-12 03:30 | NUR ---
tele lace weaver notes pt resting at this time after pain medication given, chest pain subside, Sinus Rhythm on tele monitor as well as on EKG. kept her warm and comfortable at all times. will continue monitoring. call light at reach.
[2019-11-12 04:00] VITALS: BP 136/90
[2019-11-12 06:31] LABS: BASOPHILS % (AUTO) 0.3 % (0.0-2.0); EOSINOPHILS % (AUTO) 1.4 % (0.0-6.0); HEMATOCRIT 43 % (33-45); HEMOGLOBIN 14.2 g/dL (11.5-14.8); LYMPHOCYTES # (AUTO) 2.5 /CMM (0.8-4.8); LYMPHOCYTES % (AUTO) 25.3 % (20.0-44.0); MEAN CORPUSCULAR HGB CONC 33 g/dl (31.0-36.0); MEAN CORPUSCULAR VOLUME 89 fL (82-100); MONOCYTES # (AUTO) 0.6 /CMM (0.1-1.30); MONOCYTES % (AUTO) 6.1 % (2.0-12.0); NEUTROPHILS # (AUTO) 6.6 /CMM (1.8-8.9); NEUTROPHILS % (AUTO) 66.9 % (43.0-81.0); PLATELET COUNT (AUTO) 258 /CMM (150-450); RED BLOOD CELL COUNT(AUTO) 4.86 MIL/uL (4.0-5.2); WHITE BLOOD COUNT (AUTO) 9.8 K/uL (4.3-11.0)
[2019-11-12] MEDS: BLOOD SUGAR DIAGNOSTIC 1 EACH STRIP IN SCH ×4 (06:32→21:23)
--- NOTE | 2019-11-12 07:19 | NUR ---
tele admissions evaluator closing notes pt resting at this time with eyed closed but arouse to her name and touch. blood sugar checked done 311, no signs of hyper glycemia noted. tele SR with occasional PAC"s per tele monitor. endorse to am nurse Rachel that blood sugar checked done only needs to administer the insulin as ordered. kept her warm and comfortable at all times. place call light at reach.
[2019-11-12 07:45] LABS: CREATININE 0.8 mg/dL (0.6-1.3)
--- NOTE | 2019-11-12 07:45 | NUR ---
RAISE MINER NOTES PATIENT RECEIVED IN BED SLEEPING EASILY AWAKEN BY NAME AND LIGHT TOUCH, ALERT AND ORIENTED X 3 MARSHALL[place]/NORTHERN IRISH SPEAKING. ON NASAL CANNULA 2L, WITH NO SIGNS OF RESPIRATORY DISTRESS AT THIS TIME WITH EVEN NON-LABORED BREATHING. PATIENT SKIN WARM AND DRY TO TOUCH. IV ACCESS INTACT AND PATENT. SAFETY PRECAUTIONS IN PLACE WITH BED LOCKED, BED IN THE LOWEST POSITION,BILATERAL SIDE RAILS UP AND CALL LIGHT WITHIN EASY REACH WILL CONTINUE TO MONITOR PATIENT.
[2019-11-12 08:00] VITALS: BP 146/93
[2019-11-12] MEDS: INSULIN REGULAR, HUMAN 100 UNIT/ML 3 ML VIAL SQ PRN ×4 (08:31→21:38)
--- NOTE | 2019-11-12 08:31 | NUR ---
METAL BUFFER NOTES PATIENT BLOOD SUGAR 311 PER INSULIN SLIDING SCALE 8 UNITS OF INSULIN ADMINISTERED PER PROTOCOL, PATIENT HAD BREAKFAST TRAY AND SNACK PROVIDED. WILL CONTINUE TO MONITOR.
[2019-11-12] MEDS: ASPIRIN EC 81 MG TABLET.DR PO SCH (08:32)
[2019-11-12] MEDS: MONTELUKAST SODIUM (10MG) 10 MG TABLET PO SCH (08:32)
[2019-11-12] MEDS: GABAPENTIN 300 MG CAPSULE PO SCH ×3 (08:32→16:57)
[2019-11-12] MEDS: FUROSEMIDE 40 MG TABLET PO SCH (08:32)
[2019-11-12] MEDS: METFORMIN 500 MG TABLET PO SCH ×2 (08:32→17:02)
[2019-11-12] MEDS: CYCLOBENZAPRINE 10 MG TABLET PO SCH ×3 (08:32→16:57)
[2019-11-12] MEDS: PANTOPRAZOLE 40 MG TABLET.DR PO SCH (08:33)
[2019-11-12] MEDS: RANOLAZINE 500 MG TAB.ER.12H PO SCH ×2 (08:35→16:57)
[2019-11-12] MEDS ORDERED: IV NS 0.9% 250 ML IV ONE (09:09)
[2019-11-12] MEDS ORDERED: IOHEXOL-350 100 ML VIAL IV ONE (09:09)
--- NOTE | 2019-11-12 09:10 | NUR ---
RAVELER NOTES PATIENT COMPLAINING OF CHEST AND LOWER LEFT SIDE BACK PAIN STATING 8-9/10 PAIN AND REQUESTING PAIN MEDICATION. OFFERED NORCO PO PATIENT REFUSED AND REQUESTING MORPHINE. ADMINISTERED MORPHINE DOSE ORDERED 2mg/mL. WILL CONTINUE TO MONITOR PATIENT.
[2019-11-12 09:17] LABS: POTASSIUM 3.3 mmol/L (3.5-5.1)
[2019-11-12 09:23] LABS: CALCIUM, SERUM 8.9 mg/dL (8.5-10.1)
[2019-11-12 09:24] LABS: MAGNESIUM 1.8 mg/dL (1.8-2.4); PHOSPHORUS 4.9 mg/dL (2.5-4.9)
[2019-11-12] MEDS ORDERED: METOPROLOL TARTRATE INJ 5 MG/5 ML AMPUL ONE ×4 (09:25→10:10)
[2019-11-12] MEDS ORDERED: NITROGLYCERIN 0.4 MG/TAB BOTTLE ONE (09:25)
--- NOTE | 2019-11-12 09:25 | NUR ---
MAIL SORTER NOTES PATIENT WENT TO [facility] FOR HEART TRANSPORTED BY BED.
[2019-11-12] MEDS: METOPROLOL TARTRATE INJ 5 MG/5 ML AMPUL IVP PRN ×7 (09:28→10:12)
[2019-11-12] MEDS ORDERED: NITROGLYCERIN 0.4 MG/TAB BOTTLE SL ONE (09:30)
[2019-11-12] MEDS ORDERED: POTASSIUM CHLORIDE 20 MEQ TAB.PRT.SR PO ONE (10:00)
[2019-11-12 10:06] LABS: THYROID STIMULATING HORMONE 1.657 uIU/mL (0.358-3.74)
--- NOTE | 2019-11-12 10:26 | NUR ---
post CTA procedure tolerated by the pt. not in respiratory distress, VS stable, report given to federico upton for lupe.
--- NOTE | 2019-11-12 10:40 | NUR ---
ECHOCARDIOGRAPHY TECH NOTES PATIENT CAME BACK FROM [facility]. WILL CONTINUE TO MONITOR PATIENT.
[2019-11-12] MEDS: INSULIN GLARGINE, 100 UNIT/ML CARTRIDGE SQ SCH ×2 (10:47→21:36)
--- NOTE | 2019-11-12 14:28 | NUR ---
MEAT PROCESSING CENTER MANAGER NOTES INFORMED DR CONRAD THAT PATIENT HAS BEEN ON ROOM AIR AND HAVE BEEN SATURATING 97% AND ABOVE. PER DR. CONRAD OKAY TO DISCONTINUE O2. WILL CONTINUE TO MONITOR PATIENT.
[2019-11-12 16:00] VITALS: BP 122/72
--- NOTE | 2019-11-12 16:58 | NUR ---
BELLOWS FILLER NOTES PATIENT'S BLOOD SUGAR 317 PER INSULIN SLIDING SCALE PROTOCOL, 8 UNITS OF INSULIN ADMINISTERED. PROVIDED DINNER TRAY AND JUICE TO PATIENT. WILL CONTINUE TO MONITOR PATIENT.
[2019-11-12] MEDS ORDERED: AMLODIPINE BESYLATE 5 MG TABLET PO SCH (18:00)
--- NOTE | 2019-11-12 18:27 | NUR ---
PEELED POTATO INSPECTOR NOTES PATIENT IN BED RESTING COMFORTABLY, ALERT AND ORIENTED X4. ON ROOM AIR WITH NO SIGNS OF RESPIRATORY DISTRESS WITH SPO2 AT 97%, WITH EVEN NON-LABORED BREATHING AT THIS TIME. ON TRUST MAIL CLERK NORMAL SINUS 70'S. PATIENT SKIN KEPT WARM, CLEAN AND DRY. IV ACCESS INTACT AND PATENT ON RIGHT AC SALINE LOCK. MET ALL OF PATIENT'S NEEDS. PATIENT DENIES PAIN AND DISCOMFORT AT THIS TIME. SAFETY PRECAUTIONS IMPLEMENTED WITH BED LOCKED, BED IN THE LOWEST POSITION, BILATERAL SIDE RAILS UP, AND CALL LIGHT WITHIN EASY REACH OF THE PATIENT. WILL ENDORSE PLAN OF CARE TO UPCOMING NURSE.
--- NOTE | 2019-11-12 19:30 | NUR ---
RN NOTES RECEIVED PT. SLEEPING BUT AROUSABLE, A/OX4, SR ON TELE MONITOR HR-83, DENIES ANY PAIN, NO SOB, CALL LIGHT WITHIN REACH, [id number], CONTINUE TO MONITOR
[2019-11-12 20:00] VITALS: BP 125/77
--- NOTE | 2019-11-12 21:25 | NUR ---
RN NOTES COMPLAINED OF TERRIBLE BACK PAIN- MORPHINE 2 MG IV GIVEN ORDERED, V/S STABLE
[2019-11-12] MEDS ORDERED: ATORVASTATIN 40 MG TABLET PO SCH (22:00)
[2019-11-13] VITALS: BP 154/80
[2019-11-13 04:00] VITALS: BP_SYST 111; BP_SYST 119; BP_DIAS 65
[2019-11-13] MEDS: MORPHINE SULFATE INJ 2 MG/ML DISP.SYRIN IV PRN (06:04)
[2019-11-13] MEDS: INSULIN REGULAR, HUMAN 100 UNIT/ML 3 ML VIAL SQ PRN (06:37)
--- NOTE | 2019-11-13 06:40 | NUR ---
RN NOTES complained of back pain-morphine 2mg iv given as ordered, v/s stable, not in distress, morning care rendered, call light within reach, siderailsupx2, pt. needs attended
--- NOTE | 2019-11-13 07:30 | NUR ---
TUBE BUFFER NOTES PATIENT RECEIVED IN BED, ALERT AND ORIENTED X 3. PATIENT ON ROOM AIR WITH NO COMPLAINTS OF SOB, WITH EVEN NON-LABORED BREATHING, AND NO RESPIRATORY DISTRESS AT THIS TIME. ON BEE ROBBER, SINUS RHYTHM 70'S. PATIENT SKIN WARM AND DRY TO TOUCH. PATIENT DENIES PAIN OR DISCOMFORT AT THIS TIME. IV ACCESS INTACT AND PATENT. SAFETY PRECAUTIONS IMPLEMENTED WITH BED LOCKED, BED IN THE LOWEST POSITION, BILATERAL SIDE RAILS UP, AND CALL LIGHT WITHIN EASY REACH OF THE PATIENT. WILL CONTINUE TO MONITOR PATIENT.
[2019-11-13 07:41] LABS: BASOPHILS % (AUTO) 0.3 % (0.0-2.0); EOSINOPHILS % (AUTO) 2.3 % (0.0-6.0); HEMATOCRIT 43 % (33-45); HEMOGLOBIN 14.2 g/dL (11.5-14.8); LYMPHOCYTES # (AUTO) 2.3 /CMM (0.8-4.8); MEAN CORPUSCULAR HGB CONC 33 g/dl (31.0-36.0); MEAN CORPUSCULAR VOLUME 89 fL (82-100); MONOCYTES # (AUTO) 0.6 /CMM (0.1-1.30); MONOCYTES % (AUTO) 6.6 % (2.0-12.0); NEUTROPHILS # (AUTO) 5.8 /CMM (1.8-8.9); NEUTROPHILS % (AUTO) 64.8 % (43.0-81.0); PLATELET COUNT (AUTO) 255 /CMM (150-450); RED BLOOD CELL COUNT(AUTO) 4.88 MIL/uL (4.0-5.2); WHITE BLOOD COUNT (AUTO) 8.9 K/uL (4.3-11.0)
[2019-11-13 07:47] LABS: CREATININE 0.6 mg/dL (0.6-1.3); POTASSIUM 3.9 mmol/L (3.5-5.1)
[2019-11-13 08:00] VITALS: BP 138/85
[2019-11-13] MEDS: BLOOD SUGAR DIAGNOSTIC 1 EACH STRIP IN SCH (08:15)
[2019-11-13] MEDS: PANTOPRAZOLE 40 MG TABLET.DR PO SCH (08:15)
[2019-11-13] MEDS: FUROSEMIDE 40 MG TABLET PO SCH (08:16)
[2019-11-13] MEDS: CYCLOBENZAPRINE 10 MG TABLET PO SCH (08:16)
[2019-11-13] MEDS: MONTELUKAST SODIUM (10MG) 10 MG TABLET PO SCH (08:16)
[2019-11-13] MEDS: METFORMIN 500 MG TABLET PO SCH (08:16)
[2019-11-13] MEDS: GABAPENTIN 300 MG CAPSULE PO SCH (08:16)
[2019-11-13] MEDS: RANOLAZINE 500 MG TAB.ER.12H PO SCH (08:16)
[2019-11-13] MEDS: ASPIRIN EC 81 MG TABLET.DR PO SCH (08:16)
[2019-11-13] MEDS: INSULIN GLARGINE, 100 UNIT/ML CARTRIDGE SQ SCH (08:20)
--- NOTE | 2019-11-13 10:55 | NUR ---
DISCHARGE NOTE: PATIENT ALERT AND ORIENTED X 3, ON ROOM AIR WITH NO SIGNS OF RESPIRATORY DISTRESS, WITH EVEN NON-LABORED BREATHING, AND NO SOB NOTED AT THIS TIME. PATIENT VITAL SIGNS STABLE. EDUCATED THE PATIENT ON EXIT CARE AND CONFIRMED PREFERRED PHARMACY. REMOVED ID BAND. REMOVED IV ACCESS, CATHETER TIP INTACT AND APPLIED PRESSURE TO SITE AND DRESSING PLACED. PATIENT ACCOUNTED FOR ALL BELONGINGS. PATIENT LEFT UNIT VIA WHEELCHAIR AND LEFT IN A PRIVATE CAR.
== END 2019-11-13 10:55 | disposition home or self-care (01) | DRG 198 ==
LOC: ER 19:44 → TELE 22:46
PROVIDERS: ATTEND Nurse Practitioner Acute Care
DX: I25.10 Atherosclerotic heart disease of native coronary artery without angina pectoris (principal); E11.65 Type 2 diabetes mellitus with hyperglycemia; E44.0 Moderate protein-calorie malnutrition; D68.69 Other thrombophilia; E87.1 Hypo-osmolality and hyponatremia; E87.6 Hypokalemia; F17.210 Nicotine dependence, cigarettes, uncomplicated; E66.01 Morbid (severe) obesity due to excess calories; E11.40 Type 2 diabetes mellitus with diabetic neuropathy, unspecified; F32.9 Major depressive disorder, single episode, unspecified; F41.9 Anxiety disorder, unspecified; G47.33 Obstructive sleep apnea (adult) (pediatric); M54.16 Radiculopathy, lumbar region; Z79.4 Long term (current) use of insulin; I10 Essential (primary) hypertension; Z95.5 Presence of coronary angioplasty implant and graft; Z68.38 Body mass index [BMI] 38.0-38.9, adult; Z71.6 Tobacco abuse counseling; G82.20 Paraplegia, unspecified; V89.2XXS Person injured in unspecified motor-vehicle accident, traffic, sequela; Z91.14 Patient's other noncompliance with medication regimen; K59.00 Constipation, unspecified; E88.09 Other disorders of plasma-protein metabolism, not elsewhere classified; M62.50 Muscle wasting and atrophy, not elsewhere classified, unspecified site; G89.29 Other chronic pain; J44.9 Chronic obstructive pulmonary disease, unspecified; Z99.3 Dependence on wheelchair
CPT/HCPCS: 36415; 71045-TC; 75574; 80048-TC; 80061-TC; 80076-TC; 81000-TC; 82962-TC; 83690-TC; 83735-TC; 84100-TC; 84443-TC; 84484-TC; 85025-TC; 87081-TC; 93307-TC; 97112-TC; 97530-TC; C9803-CS; G0378; J1170; J1650; J1815; J2270; J3490; J7050; Q9967

== ENCOUNTER 2020-02-07 00:01 | Emergency (ER) | payer OTHER ==
[~2020-02-07] VITALS: Ht 154.9 cm; Wt 81.6 kg
[~2020-02-07 00:01] MED LIST changes: +AMLO-212 PO; -AMLO5TAB9 PO
--- NOTE | 2020-02-07 00:15 | NUR ---
PT C/O ABD PAIN, R FLANK PAIN, LOW BACK PAIN S/P GLF YESTERDAY. PT DENIES KO. PT AAOX4, RESPIRATIONS EVEN AND UNLABORED ON RA W/ NAD NOTED. PT CONNECTED TO THE PUBLIC IMPROVEMENT INSPECTOR AND POX.
--- NOTE | 2020-02-07 00:20 | NUR ---
BLOOD COLLECTED AND SENT TO LAB
[2020-02-07] MEDS ORDERED: ONDANSETRON HCL/PF 4 MG/2 ML VIAL ONE (00:29)
[2020-02-07] MEDS ORDERED: MORPHINE SULFATE INJ 4 MG/ML DISP.SYRIN ONE (00:29)
[2020-02-07] MEDS ORDERED: ONDANSETRON HCL/PF 4 MG/2 ML VIAL IVP ONE (00:30)
[2020-02-07] MEDS ORDERED: IV NS 0.9% 500 ML BAG IV ONE (00:30)
[2020-02-07] MEDS ORDERED: MORPHINE SULFATE INJ 2 MG/ML DISP.SYRIN IV ONE (00:30)
[2020-02-07 00:31] LABS: BASOPHILS % (AUTO) 0.5 % (0.0-2.0); EOSINOPHILS % (AUTO) 1.4 % (0.0-6.0); HEMATOCRIT 42 % (33-45); HEMOGLOBIN 14.4 g/dL (11.5-14.8); LYMPHOCYTES # (AUTO) 2.8 /CMM (0.8-4.8); LYMPHOCYTES % (AUTO) 26.3 % (20.0-44.0); MEAN CORPUSCULAR HGB CONC 34 g/dl (31.0-36.0); MEAN CORPUSCULAR VOLUME 88 fL (82-100); MONOCYTES # (AUTO) 0.6 /CMM (0.1-1.30); MONOCYTES % (AUTO) 6.1 % (2.0-12.0); NEUTROPHILS % (AUTO) 65.7 % (43.0-81.0); PLATELET COUNT (AUTO) 271 /CMM (150-450); RED BLOOD CELL COUNT(AUTO) 4.83 MIL/uL (4.0-5.2); WHITE BLOOD COUNT (AUTO) 10.6 K/uL (4.3-11.0)
[2020-02-07 00:47] LABS: ALBUMIN 3.2 g/dL (3.4-5.0); BILIRUBIN,DIRECT 0.1 mg/dL (0.0-0.2); BILIRUBIN,TOTAL 0.2 mg/dL (0.2-1.0); CALCIUM, SERUM 9.2 mg/dL (8.5-10.1); CREATININE 0.6 mg/dL (0.6-1.3); POTASSIUM 3.2 mmol/L (3.5-5.1); TOTAL PROTEIN, SERUM 7.4 g/dL (6.4-8.2)
[2020-02-07] MEDS ORDERED: IOHEXOL-300 100 ML VIAL IV ONE (00:52)
[2020-02-07] MEDS ORDERED: IV NS 0.9% 250 ML IV ONE (00:52)
--- NOTE | 2020-02-07 02:12 | NUR ---
Jovani españa in EDM - 02/07/20 at 0213 by BANDAR Patient discharged to home in stable condition. Written and verbal after care instructions given. Patient verbalizes understanding of instruction. Pt wheeled to family.
--- NOTE | 2020-02-07 02:13 | NUR ---
Patient discharged to home in stable condition. Written and verbal after care instructions given. Patient verbalizes understanding of instruction. Pt wheeled to family.
[2020-02-07 02:14] VITALS: BP 162/54
== END 2020-02-07 02:15 | disposition home or self-care (01) ==
LOC: ER 00:09
DX: S30.1XXA Contusion of abdominal wall, initial encounter (principal); I44.4 Left anterior fascicular block; I10 Essential (primary) hypertension; E11.9 Type 2 diabetes mellitus without complications; E78.00 Pure hypercholesterolemia, unspecified; E66.01 Morbid (severe) obesity due to excess calories; Z68.34 Body mass index [BMI] 34.0-34.9, adult; Z79.4 Long term (current) use of insulin; Z79.899 Other long term (current) drug therapy; Z79.82 Long term (current) use of aspirin; Z95.5 Presence of coronary angioplasty implant and graft; Z90.49 Acquired absence of other specified parts of digestive tract; W18.09XA Striking against other object with subsequent fall, initial encounter; Y93.89 Activity, other specified; Y92.89 Other specified places as the place of occurrence of the external cause; Y99.8 Other external cause status
CPT/HCPCS: 36415; 71045; 74177; 80048; 80076; 83690; 84484; 85025; 85730; 93005; 96374; 99285; J2270; J2405; J7050; Q9967

== ENCOUNTER 2020-03-19 13:33 | Emergency (ER) | payer OTHER ==
[~2020-03-19] VITALS: Ht 154.9 cm; Wt 113.4 kg
--- NOTE | 2020-03-19 14:05 | NUR ---
DR. RODRIGUES AT [facility].
[2020-03-19 14:30] LABS: BASOPHILS % (AUTO) 0.2 % (0.0-2.0); EOSINOPHILS % (AUTO) 0.7 % (0.0-6.0); HEMATOCRIT 39 % (33-45); HEMOGLOBIN 13.1 g/dL (11.5-14.8); LYMPHOCYTES # (AUTO) 1.2 /CMM (0.8-4.8); LYMPHOCYTES % (AUTO) 7.6 % (20.0-44.0); MEAN CORPUSCULAR HGB CONC 33 g/dl (31.0-36.0); MEAN CORPUSCULAR VOLUME 86 fL (82-100); MONOCYTES # (AUTO) 1.2 /CMM (0.1-1.30); MONOCYTES % (AUTO) 7.9 % (2.0-12.0); NEUTROPHILS # (AUTO) 13.1 /CMM (1.8-8.9); NEUTROPHILS % (AUTO) 83.6 % (43.0-81.0); PLATELET COUNT (AUTO) 164 /CMM (150-450); RED BLOOD CELL COUNT(AUTO) 4.56 MIL/uL (4.0-5.2); WHITE BLOOD COUNT (AUTO) 15.7 K/uL (4.3-11.0)
[2020-03-19] MEDS ORDERED: IV NS 0.9% 1,000 ML BAG IV ONE (14:30)
[2020-03-19] MEDS ORDERED: ONDANSETRON HCL/PF 4 MG/2 ML VIAL IVP ONE (14:30)
[2020-03-19] MEDS ORDERED: ONDANSETRON HCL/PF 4 MG/2 ML VIAL ONE (14:35)
[2020-03-19 14:38] LABS: CALCIUM, SERUM 8.9 mg/dL (8.5-10.1); CARBON DIOXIDE 23 mmol/L (21-32); CHLORIDE 98 mmol/L (98-107); CREATININE 0.9 mg/dL (0.6-1.3); GLUCOSE 175 mg/dL (74-106); POTASSIUM 3.2 mmol/L (3.5-5.1); SODIUM SERUM 133 mmol/L (136-145); UREA NITROGEN, BLOOD 13 mg/dL (7-18)
[2020-03-19 14:44] LABS: ALANINE AMINOTRANSFERASE 117 U/L (12-78); ALBUMIN 2.2 g/dL (3.4-5.0); ALKALINE PHOSPHATASE 161 U/L (46-116); ASPARTATE AMINOTRANSFERASE 70 U/L (15-37); BILIRUBIN,DIRECT 0.2 mg/dL (0.0-0.2); BILIRUBIN,TOTAL 0.6 mg/dL (0.2-1.0); LIPASE 51 U/L (73-393); TOTAL PROTEIN, SERUM 7.1 g/dL (6.4-8.2)
--- NOTE | 2020-03-19 14:50 | NUR ---
bib family home c/o R foot pain s/p foot procedure, n/v/d x 4 days. PT AAOX4, VSS. RR EVEN & UNLABORED. MEDICATED PER ERMD ORDER, PT LULA WELL. WILL CONT TO MONITOR.
[2020-03-19] MEDS ORDERED: ISOS60TA4 PO (14:55)
[2020-03-19] MEDS ORDERED: SERT50TA12 PO (14:55)
[2020-03-19] MEDS ORDERED: ATOR80TA PO (14:55)
[2020-03-19] MEDS ORDERED: MONT10TA22 PO (14:55)
[2020-03-19] MEDS ORDERED: MORPHINE SULFATE INJ 2 MG/ML DISP.SYRIN IM ONE (16:00)
[2020-03-19] MEDS ORDERED: MORPHINE SULFATE INJ 4 MG/ML DISP.SYRIN ONE (16:12)
--- NOTE | 2020-03-19 16:17 | NUR ---
MEDICATED PER ERMD ORDER, PT LULA WELL.
[2020-03-19 17:57] LABS: BILIRUBIN,URINE Negative (NEGATIVE); COLOR,URINE YELLOW (YELLOW); LEUKOCYTE ESTERASE ,URINE Negative (NEGATIVE); NITRITE, URINE Positive (NEGATIVE); PH,URINE 5.5 (5.0-8.0); PROTEIN,URINE Negative (NEGATIVE); UGLUCOSE >=1000 mg/dL (NEGATIVE)
[2020-03-19 18:06] LABS: BACTERIA,URINE Moderate /HPF (None Seen)
[2020-03-19] MEDS ORDERED: POTASSIUM CHLORIDE 20 MEQ TAB.PRT.SR PO ONE ×2 (19:00→19:52)
[2020-03-19] MEDS ORDERED: CEFTRIAXONE 1 G VIAL IM ONE (19:00)
[2020-03-19] MEDS ORDERED: LIDOCAINE /MPF 1% VIAL 5 ML VIAL ONE (19:04)
[2020-03-19] MEDS ORDERED: CEFTRIAXONE 1 G VIAL ONE (19:05)
[2020-03-19] MEDS ORDERED: CEPH500C2 PO (19:18)
[2020-03-19] MEDS ORDERED: ONDA4TAB11 PO (19:20)
[2020-03-19 20:45] VITALS: BP 122/75
--- NOTE | 2020-03-19 20:45 | NUR ---
Patient discharged to home in stable condition. Written and verbal after care instructions given. Patient verbalizes understanding of instruction.
--- NOTE | 2020-03-19 20:45 | NUR ---
PICKED UP BY FAMILY MEMBER.
--- NOTE | 2020-03-19 20:45 | NUR ---
IV removed. Catheter intact and site benign. Pressure and 4x4 applied to site. No bleeding noted.
[2020-03-21] MEDS ORDERED: MORPHINE SULFATE INJ 2 MG/ML DISP.SYRIN ONE (21:55)
== END 2020-03-19 20:45 | disposition home or self-care (01) ==
LOC: ER 13:35
DX: M79.672 Pain in left foot (principal); R11.2 Nausea with vomiting, unspecified; R19.7 Diarrhea, unspecified; D72.829 Elevated white blood cell count, unspecified; G82.20 Paraplegia, unspecified; R74.01 Elevation of levels of liver transaminase levels; E87.6 Hypokalemia; Z76.5 Malingerer [conscious simulation]; R10.9 Unspecified abdominal pain; I10 Essential (primary) hypertension; E11.9 Type 2 diabetes mellitus without complications; E78.00 Pure hypercholesterolemia, unspecified; G89.4 Chronic pain syndrome; J44.9 Chronic obstructive pulmonary disease, unspecified; F17.200 Nicotine dependence, unspecified, uncomplicated; Z90.49 Acquired absence of other specified parts of digestive tract; Z98.890 Other specified postprocedural states; Z79.899 Other long term (current) drug therapy; Z79.4 Long term (current) use of insulin
CPT/HCPCS: 36415; 71045; 73630; 74176; 80048; 80076; 81001; 82010; 83605; 83690; 84484; 85025; 87086; 93005; 93971; 96361; 96372 ×2; 96374; 99285; J0696; J2270; J2405; J3490; J7030; 87186-TC

== ENCOUNTER 2020-03-21 18:27 | Inpatient (IN) | payer OTHER ==
[~2020-03-21] VITALS: Ht 154.9 cm; Wt 99.3 kg
[~2020-03-21 18:27] MED LIST changes: -ATOR40TA PO; +ATOR80TA PO; +CEPH500C2 PO; -INSU100V27 SQ; +ISOS60TA72 PO; +ONDA4TAB11 PO; +SERT-438 PO
[2020-03-21] MEDS ORDERED: ACETAMINOPHEN ES 500 MG TABLET ONE (18:55)
[2020-03-21] MEDS ORDERED: MORPHINE SULFATE INJ 4 MG/ML DISP.SYRIN ONE (18:55)
[2020-03-21] MEDS ORDERED: ONDANSETRON HCL/PF 4 MG/2 ML VIAL ONE (18:55)
[2020-03-21] MEDS ORDERED: CEFTRIAXONE 1GM BAG (ER ONLY) 50 ML IV ONE ×2 (18:55→19:00)
[2020-03-21] MEDS ORDERED: MORPHINE SULFATE INJ 2 MG/ML DISP.SYRIN IV ONE (19:00)
[2020-03-21] MEDS ORDERED: ACETAMINOPHEN 325 MG TABLET PO ONE (19:00)
[2020-03-21] MEDS ORDERED: IV NS 0.9% 1,000 ML BAG IV ONE (19:00)
[2020-03-21] MEDS ORDERED: ONDANSETRON HCL/PF 4 MG/2 ML VIAL IVP ONE (19:00)
[2020-03-21 19:29] LABS: BASOPHILS % (AUTO) 0.1 % (0.0-2.0); EOSINOPHILS % (AUTO) 0.1 % (0.0-6.0); HEMATOCRIT 41 % (33-45); HEMOGLOBIN 13.2 g/dL (11.5-14.8); LYMPHOCYTES # (AUTO) 1.1 /CMM (0.8-4.8); LYMPHOCYTES % (AUTO) 5.6 % (20.0-44.0); MEAN CORPUSCULAR HGB CONC 32 g/dl (31.0-36.0); MEAN CORPUSCULAR VOLUME 88 fL (82-100); MONOCYTES # (AUTO) 1.6 /CMM (0.1-1.30); MONOCYTES % (AUTO) 7.9 % (2.0-12.0); NEUTROPHILS # (AUTO) 17.2 /CMM (1.8-8.9); NEUTROPHILS % (AUTO) 86.3 % (43.0-81.0); PLATELET COUNT (AUTO) 185 /CMM (150-450); RED BLOOD CELL COUNT(AUTO) 4.62 MIL/uL (4.0-5.2); WHITE BLOOD COUNT (AUTO) 19.9 K/uL (4.3-11.0)
[2020-03-21 19:57] LABS: CALCIUM, SERUM 8.7 mg/dL (8.5-10.1); CREATININE 0.9 mg/dL (0.6-1.3); POTASSIUM 3.1 mmol/L (3.5-5.1)
[2020-03-21 20:02] LABS: BILIRUBIN,DIRECT 0.4 mg/dL (0.0-0.2); BILIRUBIN,TOTAL 0.6 mg/dL (0.2-1.0); TOTAL PROTEIN, SERUM 7.2 g/dL (6.4-8.2)
[2020-03-21] MEDS ORDERED: POTASSIUM CHLORIDE 20 MEQ TAB.PRT.SR PO ONE (20:30)
[2020-03-21] MEDS ORDERED: MORPHINE SULFATE INJ 2 MG/ML DISP.SYRIN IV PRN (22:00)
[2020-03-21] MEDS ORDERED: IV NS 0.9% 1,000 ML IV ONE (23:30)
[2020-03-21] MEDS ORDERED: MAG HYDROX/AL HYDROX/SIMETH 30 ML UDC PO PRN (23:30)
[2020-03-21] MEDS ORDERED: ACETAMINOPHEN 325 MG TABLET PO PRN (23:30)
[2020-03-21] MEDS ORDERED: ZOLPIDEM TARTRATE 5 MG TABLET PO PRN (23:30)
[2020-03-21] MEDS ORDERED: MAGNESIUM HYDROXIDE 30 ML UDC PO PRN (23:30)
[2020-03-21] MEDS ORDERED: ALPRAZOLAM 0.5 MG TABLET PO PRN (23:30)
[2020-03-21] MEDS ORDERED: HYDROCODONE/APAP 5/325MG TABLET PO PRN (23:30)
[2020-03-21] MEDS ORDERED: Z GUARD REMEDY 2 OZ OINT TP PRN (23:30)
[2020-03-21] MEDS ORDERED: ONDANSETRON HCL/PF 4 MG/2 ML VIAL IVP PRN (23:30)
[2020-03-22] MEDS ORDERED: CLINDAMYCIN IV RTU IN D5W 900 MG/50 ML PIGGYBACK IV SCH
[2020-03-22] MEDS ORDERED: ALPRAZOLAM 0.5 MG TABLET PO PRN (01:00)
[2020-03-22] MEDS ORDERED: POTASSIUM CHLORIDE 20 MEQ TAB.PRT.SR PO ONE (02:00)
[2020-03-22] MEDS ORDERED: CLINDAMYCIN 900 MG/6 ML VIAL ONE (02:00)
[2020-03-22] MEDS ORDERED: HYDROCODONE/APAP 5/325MG TABLET ONE (05:30)
[2020-03-22 05:45] LABS: BASOPHILS % (AUTO) 0.1 % (0.0-2.0); EOSINOPHILS % (AUTO) 0.3 % (0.0-6.0); HEMATOCRIT 40 % (33-45); HEMOGLOBIN 12.8 g/dL (11.5-14.8); LYMPHOCYTES # (AUTO) 1.4 /CMM (0.8-4.8); MEAN CORPUSCULAR HGB CONC 32 g/dl (31.0-36.0); MEAN CORPUSCULAR VOLUME 88 fL (82-100); MONOCYTES # (AUTO) 1.9 /CMM (0.1-1.30); MONOCYTES % (AUTO) 9.5 % (2.0-12.0); NEUTROPHILS # (AUTO) 16.1 /CMM (1.8-8.9); NEUTROPHILS % (AUTO) 83.1 % (43.0-81.0); PLATELET COUNT (AUTO) 222 /CMM (150-450); RED BLOOD CELL COUNT(AUTO) 4.52 MIL/uL (4.0-5.2); WHITE BLOOD COUNT (AUTO) 19.4 K/uL (4.3-11.0)
[2020-03-22 06:15] LABS: CALCIUM, SERUM 8.5 mg/dL (8.5-10.1); CREATININE 0.8 mg/dL (0.6-1.3); MAGNESIUM 2.1 mg/dL (1.8-2.4); PHOSPHORUS 4.2 mg/dL (2.5-4.9); POTASSIUM 3.8 mmol/L (3.5-5.1)
[2020-03-22] MEDS ORDERED: FUROSEMIDE 40 MG TABLET ONE (08:28)
[2020-03-22] MEDS ORDERED: GABAPENTIN 300 MG CAPSULE ONE ×2 (08:28→13:59)
[2020-03-22] MEDS ORDERED: ISOSORBIDE MONONITRATE (30MG) 30 MG TAB.SR.24H PO ONE (08:28)
[2020-03-22] MEDS ORDERED: PANTOPRAZOLE 40 MG TABLET.DR PO ONE (08:28)
[2020-03-22] MEDS ORDERED: CYCLOBENZAPRINE 10 MG TABLET ONE ×2 (08:28→13:59)
[2020-03-22] MEDS ORDERED: MONTELUKAST SODIUM (10MG) 10 MG TABLET ONE (08:28)
[2020-03-22] MEDS ORDERED: ASPIRIN 81 MG TAB.CHEW ONE (08:29)
[2020-03-22] MEDS ORDERED: POTASSIUM CHLORIDE 10 MEQ TABLET.SA ONE (08:29)
[2020-03-22] MEDS: ASPIRIN EC 81 MG TABLET.DR PO SCH (08:33)
[2020-03-22] MEDS: POTASSIUM CHLORIDE 10 MEQ TABLET.SA PO SCH (08:34)
[2020-03-22] MEDS: CYCLOBENZAPRINE 10 MG TABLET PO SCH ×3 (08:34→17:00)
[2020-03-22] MEDS: FUROSEMIDE 40 MG TABLET PO SCH (08:34)
[2020-03-22] MEDS: PANTOPRAZOLE 40 MG TABLET.DR PO SCH (08:35)
[2020-03-22] MEDS: MONTELUKAST SODIUM (10MG) 10 MG TABLET PO SCH (08:35)
[2020-03-22] MEDS: GABAPENTIN 300 MG CAPSULE PO SCH ×3 (08:35→17:00)
[2020-03-22] MEDS ORDERED: ISOSORBIDE MONONITRATE 60 MG TAB.SR.24H PO SCH (09:00)
[2020-03-22] MEDS ORDERED: FLUOXETINE HCL 20 MG CAPSULE PO SCH ×2 (09:00)
[2020-03-22] MEDS ORDERED: ALPRAZOLAM 0.5 MG TABLET ONE (09:19)
[2020-03-22] MEDS: CLINDAMYCIN 900 MG in IV D5W 50 ML IV SCH ×2 (09:41→17:42)
[2020-03-22] MEDS: MORPHINE SULFATE INJ 2 MG/ML DISP.SYRIN IV PRN (09:41)
[2020-03-22] MEDS: RANOLAZINE 500 MG TAB.ER.12H PO SCH ×2 (10:28→17:00)
[2020-03-22] MEDS: SERTRALINE HCL 50 MG TABLET PO SCH (10:28)
[2020-03-22] MEDS: AMLODIPINE BESYLATE 5 MG TABLET PO SCH (17:42)
[2020-03-22] MEDS ORDERED: ATORVASTATIN 40 MG TABLET ONE (21:42)
[2020-03-22] MEDS ORDERED: TRAZODONE 50 MG TABLET ONE (21:42)
[2020-03-22] MEDS: ATORVASTATIN 40 MG TABLET PO SCH (22:00)
[2020-03-22] MEDS: TRAZODONE 50 MG TABLET PO SCH (22:00)
[2020-03-23] MEDS: CLINDAMYCIN 900 MG in IV D5W 50 ML IV SCH ×3 (01:30→18:00)
[2020-03-23] MEDS ORDERED: CLINDAMYCIN 900 MG/6 ML VIAL ONE (01:43)
[2020-03-23] MEDS ORDERED: MORPHINE SULFATE INJ 2 MG/ML DISP.SYRIN ONE (03:19)
[2020-03-23] MEDS: MORPHINE SULFATE INJ 2 MG/ML DISP.SYRIN IV PRN ×3 (03:20→20:28)
[2020-03-23 04:43] LABS: BASOPHILS % (AUTO) 0.1 % (0.0-2.0); EOSINOPHILS % (AUTO) 0.9 % (0.0-6.0); HEMATOCRIT 37 % (33-45); HEMOGLOBIN 11.8 g/dL (11.5-14.8); LYMPHOCYTES # (AUTO) 1.3 /CMM (0.8-4.8); LYMPHOCYTES % (AUTO) 6.4 % (20.0-44.0); MEAN CORPUSCULAR HGB CONC 32 g/dl (31.0-36.0); MEAN CORPUSCULAR VOLUME 87 fL (82-100); MONOCYTES # (AUTO) 1.4 /CMM (0.1-1.30); MONOCYTES % (AUTO) 6.9 % (2.0-12.0); NEUTROPHILS # (AUTO) 17.5 /CMM (1.8-8.9); NEUTROPHILS % (AUTO) 85.7 % (43.0-81.0); PLATELET COUNT (AUTO) 233 /CMM (150-450); RED BLOOD CELL COUNT(AUTO) 4.19 MIL/uL (4.0-5.2); WHITE BLOOD COUNT (AUTO) 20.4 K/uL (4.3-11.0)
[2020-03-23 04:55] LABS: CALCIUM, SERUM 8.5 mg/dL (8.5-10.1); CREATININE 0.9 mg/dL (0.6-1.3); POTASSIUM 4.2 mmol/L (3.5-5.1)
[2020-03-23] MEDS: ASPIRIN EC 81 MG TABLET.DR PO SCH (09:00)
[2020-03-23] MEDS: POTASSIUM CHLORIDE 10 MEQ TABLET.SA PO SCH (09:00)
[2020-03-23] MEDS: GABAPENTIN 300 MG CAPSULE PO SCH ×3 (09:00→18:00)
[2020-03-23] MEDS: CYCLOBENZAPRINE 10 MG TABLET PO SCH ×3 (09:00→18:01)
[2020-03-23] MEDS: MONTELUKAST SODIUM (10MG) 10 MG TABLET PO SCH (09:00)
[2020-03-23] MEDS: SERTRALINE HCL 50 MG TABLET PO SCH (09:01)
[2020-03-23] MEDS: FUROSEMIDE 40 MG TABLET PO SCH (09:01)
[2020-03-23] MEDS: PANTOPRAZOLE 40 MG TABLET.DR PO SCH (09:01)
[2020-03-23] MEDS: RANOLAZINE 500 MG TAB.ER.12H PO SCH ×2 (09:01→18:01)
[2020-03-23] MEDS: LIDOCAINE 5% OINT 35.44 GM TUBE TP SCH ×2 (13:43→18:07)
[2020-03-23 15:59] VITALS: BP 150/93
[2020-03-23] MEDS: AMLODIPINE BESYLATE 5 MG TABLET PO SCH (18:01)
[2020-03-23 20:00] VITALS: BP 172/99
[2020-03-23 21:03] VITALS: BP 127/85
[2020-03-23 21:09] VITALS: BP 128/85
[2020-03-23] MEDS: ATORVASTATIN 40 MG TABLET PO SCH (22:18)
[2020-03-23] MEDS: TRAZODONE 50 MG TABLET PO SCH (22:18)
[2020-03-24] MEDS: CLINDAMYCIN 900 MG in IV D5W 50 ML IV SCH ×3 (00:03→17:10)
[2020-03-24 08:00] VITALS: BP 129/77
[2020-03-24] MEDS ORDERED: ISOSORBIDE MONONITRATE (30MG) 30 MG TAB.SR.24H PO SCH (09:00)
[2020-03-24] MEDS ORDERED: ASCORBIC ACID 500 MG TABLET PO SCH (09:00)
[2020-03-24] MEDS: POTASSIUM CHLORIDE 10 MEQ TABLET.SA PO SCH (09:52)
[2020-03-24] MEDS: ASPIRIN EC 81 MG TABLET.DR PO SCH (09:52)
[2020-03-24] MEDS: MONTELUKAST SODIUM (10MG) 10 MG TABLET PO SCH (09:52)
[2020-03-24] MEDS: FUROSEMIDE 40 MG TABLET PO SCH (09:52)
[2020-03-24] MEDS: LIDOCAINE 5% OINT 35.44 GM TUBE TP SCH ×3 (09:52→17:18)
[2020-03-24] MEDS: SERTRALINE HCL 50 MG TABLET PO SCH (09:53)
[2020-03-24] MEDS: CYCLOBENZAPRINE 10 MG TABLET PO SCH ×3 (09:53→17:16)
[2020-03-24] MEDS: PANTOPRAZOLE 40 MG TABLET.DR PO SCH (09:53)
[2020-03-24] MEDS: RANOLAZINE 500 MG TAB.ER.12H PO SCH ×2 (09:53→17:16)
[2020-03-24] MEDS: GABAPENTIN 300 MG CAPSULE PO SCH ×3 (09:53→17:16)
[2020-03-24] MEDS: MORPHINE SULFATE INJ 2 MG/ML DISP.SYRIN IV PRN (10:03)
[2020-03-24] MEDS ORDERED: HYDR-3976 GT (11:31)
[2020-03-24 16:00] VITALS: BP 131/81
[2020-03-24 17:17] VITALS: BP 131/81
[2020-03-24] MEDS: AMLODIPINE BESYLATE 5 MG TABLET PO SCH (17:17)
== END 2020-03-24 18:46 | DRG 383 ==
LOC: ER 18:29 → TRANSITION 21:36 → MED 03-23 05:19
PROVIDERS: ADMIT Family Medicine; ATTEND Internal Medicine
DX: L03.116 Cellulitis of left lower limb (principal); J44.9 Chronic obstructive pulmonary disease, unspecified; E87.1 Hypo-osmolality and hyponatremia; E43 Unspecified severe protein-calorie malnutrition; E11.649 Type 2 diabetes mellitus with hypoglycemia without coma; Z87.891 Personal history of nicotine dependence; I25.10 Atherosclerotic heart disease of native coronary artery without angina pectoris; G62.9 Polyneuropathy, unspecified; F41.9 Anxiety disorder, unspecified; E87.6 Hypokalemia; E66.9 Obesity, unspecified; Z68.41 Body mass index [BMI] 40.0-44.9, adult; G89.4 Chronic pain syndrome; B35.1 Tinea unguium; E11.42 Type 2 diabetes mellitus with diabetic polyneuropathy; E78.00 Pure hypercholesterolemia, unspecified; E78.5 Hyperlipidemia, unspecified; Z95.5 Presence of coronary angioplasty implant and graft; Z79.4 Long term (current) use of insulin; Z79.899 Other long term (current) drug therapy; Z99.3 Dependence on wheelchair; Z90.49 Acquired absence of other specified parts of digestive tract; Z79.82 Long term (current) use of aspirin; E86.1 Hypovolemia; K75.81 Nonalcoholic steatohepatitis (NASH); I10 Essential (primary) hypertension; S90.32XA Contusion of left foot, initial encounter; X58.XXXA Exposure to other specified factors, initial encounter; Y92.9 Unspecified place or not applicable; I70.0 Atherosclerosis of aorta; E66.01 Morbid (severe) obesity due to excess calories
CPT/HCPCS: 36415; 71045-TC; 73630-TC; 73700-TC; 80048-TC; 80061-TC; 80076-TC; 82962-TC; 83605-TC; 83735-TC; 84100-TC; 84550-TC; 85025-TC; 85652-TC; 86140-TC; 87040-TC; 87081-TC; 93926-TC; 97110-TC; 97112-TC; 97530-TC; C9803; G0378; J0696; J2270; J2405; J3490; J7030; J7050; J7060